=== PATIENT | female | born 1940 | race Asian ===

== ENCOUNTER 2024-04-10 15:43 | Emergency (ER) | payer MEDICARE, OTHER ==
[~2024-04-10] VITALS: Ht 157.5 cm; Wt 48.3 kg
[2024-04-10 15:52] VITALS: O2SAT 96
[2024-04-10 17:11] LABS: Basophils # (auto) 0 10 ^3/uL (0-0.2); Basophils % (auto) 0.3 % (0.0-2.0); Eosinophils # (auto) 0 10 ^3/uL (0-0.8); Eosinophils % (auto) 0.6 % (0.0-7.0); Hematocrit 36.5 % (36.0-46.0); Hemoglobin 12.7 g/dL (12.2-16.2); Lymphocytes # (auto) 1.4 10 ^3/uL (0.4-5.4); Lymphocytes % (auto) 25.4 % (10.0-50.0); Mean Corpuscular Hemoglobin 31.9 pg (28.0-32.0); Mean Corpuscular Hgb Conc. 34.8 g/dL (32.0-36.0); Mean Corpuscular Volume 91.9 fL (80.0-100.0); Monocytes # (auto) 0.4 10 ^3/uL (0-1.3); Monocytes % (auto) 6.9 % (0.0-12.0); Neutrophils # (auto) 3.7 10 ^3/uL (1.6-8.6); Neutrophils % (auto) 66.8 % (37.0-80.0); Platelet Count (auto) 215 10^3/uL (140-450); Red Blood Cells 3.97 10^6/uL (4.0-5.20); Red Cell Distribution Width 13.7 % (11.8-14.3); White Blood Cell 5.5 10^3/uL (4.4-10.8)
[2024-04-10 17:32] LABS: Alanine Aminotransferase 18 U/L (7-40); Alkaline Phosphatase 63 U/L (46-116); Anion Gap 5 (5-15); Aspartate Aminotransferase 13 U/L (13-40); BUN/Creatinine Ratio 21.3 (10.0-20.0); Bilirubin, Total 0.4 mg/dL (0.2-1.0); Blood Urea Nitrogen 19 mg/dL (9-23); Calcium 10.1 mg/dL (8.7-10.4); Carbon Dioxide 27 mmol/L (20-30); Chloride 106 mmol/L (98-107); Glucose 223 mg/dL (74-106); Potassium 4.2 mmol/L (3.5-5.1); Sodium 138 mmol/L (136-145); Total Protein 6.2 g/dL (5.7-8.2)
[2024-04-10] MEDS ORDERED: HYDR-4902 PO (18:58)
[2024-04-10] MEDS: HYDROcodone-ACET 5/325MG TAB PO ONE (19:30)
[2024-04-10 19:44] VITALS: BP 176/62; RESP 16
[2024-04-10 20:06] VITALS: PULSE 65
== END 2024-04-10 20:09 | disposition home or self-care (01) ==
LOC: ER 15:43
DX: S00.83XA Contusion of other part of head, initial encounter (principal); M54.6 Pain in thoracic spine; I10 Essential (primary) hypertension; E11.9 Type 2 diabetes mellitus without complications; E78.5 Hyperlipidemia, unspecified; Z79.899 Other long term (current) drug therapy; W01.0XXA Fall on same level from slipping, tripping and stumbling without subsequent striking against object, initial encounter; Y93.89 Activity, other specified; Y92.098 Other place in other non-institutional residence as the place of occurrence of the external cause; Y99.8 Other external cause status
CPT/HCPCS: 36415; 70450; 71250; 72125; 72128; 72131; 73502; 80053; 84484; 85025; 93005

== ENCOUNTER 2024-06-29 09:06 | Emergency (ER) | payer MEDICARE, MEDICAID ==
[~2024-06-29] VITALS: Ht 157.5 cm; Wt 48.1 kg
[~2024-06-29 09:06] MED LIST: HYDR-4902 PO
[2024-06-29 09:42] VITALS: BP 125/57; PULSE 76; RESP 18; TEMP 98.3; O2SAT 96
--- NOTE | 2024-06-29 09:59 | ED.PDOC ---
History of Present Illness HPI Comments A 83 YEAR OLD FEMALE PRESENTS TO THE ED WITH COMPLAINT OF INSECT BITE AND INTERMITTENT HEADACHES. PATIENT STATES THAT SHE WAS HAS BEEN BY A MOSQUITO ON HER RIGHT INNER THIGH ABOUT 3 DAYS AGO AND NOW HAS MILD REDNESS AND SWELLING TO THE AREA. PATIENT REPORTS SHE ALSO FELL AND HIT HER HEAD ABOUT 2 MONTHS AGO AND HAD A CT SCAN OF HER BRAIN DONE IN THIS ED WHICH WAS NORMAL, BUT IS STILL EXPERIENCING INTERMITTENT HEADACHES SINCE SINCE INJURY OCCURRED AND WOULD LIKE TO BE EVALUATED ONCE AGAIN. PATIENT DENIES VISION CHANGES, SLURRED SPEECH, FAC IAL DROOP, ONE-SIDED WEAKNESS, FEVER, CHILLS, SHORTNESS OF BREATH, CHEST PAIN, ABDOMINAL PAIN, NAUSEA, VOMITING, OR OTHER COMPLAINTS. NO OTHER SYMPTOMS OR MODIFYING FACTORS AT THIS TIME. PATIENT IS ALERT, ORIENTED X 4, AND HAS STEADY GAIT. Chief Complaint: Insect Bite Time Seen by MD: 09:18 Primary Care Provider: RAKESH Reviewed Notes: Nurses Notes, Medications, Allergies Allergies: Coded Allergies: NO KNOWN ALLERGIES (Unverified , 04/10/24) Home Meds Active Scripts Hydrocodone-Acetaminophen (Hydrocodone Bitartrate/AC 5-325 mg) 1 Tab Tab, 1 TAB PO Q6HPRN PRN, #15 TAB Prov:CARMEN ARVIZU [facility] 04/10/24 Information Source: Patient Mode of Arrival: Ambulatory Severity: Moderate Timing: Days, Months Duration: Intermittent Prehospital treatment: None Medication Refill: For: Pain (HEAD ), For: Other (INSECT BITE OF RIGHT INNER THIGH AND INTERMITTENT HEADACHES) Past Medical History PAST MEDICAL HISTORY: DM, High Lipids, HTN Surgical History: Denies all surgeries 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 Family History Family History: Reviewed,noncontributory to illness, No family hx of Cancer, No family hx of DM, No family hx of Heart balwinder, No family hx of HTN, No family hx ofKidney balwinder, No family hx of Liver balwinder, No family hx of Lung balwinder, No family hx of Stroke Social History Smoker: Non-Smoker Alcohol: Denies ETOH Use Drugs: Denies Drug Use Lives In: Home Constitutional: denies: chills, diaphoresis, fatigue, fever, malaise, sweats, weakness, others EENTM: denies: blurred vision, double vision, ear bleeding, ear discharge, ear drainage, ear pain, ear ringing, eye pain, eye redness, hearing loss, mouth pain, mouth swelling, nasal discharge, nose bleeding, nose congestion, nose pain, photophobia, tearing, throat pain, throat swelling, voice changes, others Respiratory: denies: cough, hemoptysis, orthopnea, SOB at rest, shortness of breath, SOB with excertion, stridor, wheezing, others Cardiovascular: denies: chest pain, dizzy spells, diaphoresis, Dyspnea on exertion, edema, irregular heart beat, left arm pain, lightheadedness, palpitations, PND, syncope, others Gastrointestinal: denies: abdomen distended, abdominal pain, blood streaked bowels, constipated, diarrhea, dysphagia, difficulty swallowing, hematemesis, melena, nausea, poor appetite, poor fluid intake, rectal bleeding, rectal pain, vomiting, others Genitourinary: denies: abnormal vagina bleeding, burning, dyspareunia, dysuria, flank pain, frequency, hematuria, incontinence, pain, , vagina discharge, urgency, others Neurological: reports: headache; denies: dizziness, fainting, left sided numbness, left sided weakness, numbness, paresthesia, pre-existing deficit, right sided numbness, right sided weakness, seizure, speech problems, tingling, tremors, weakness, others Musculoskeletal: denies: back pain, gout, joint pain, joint swelling, muscle pain, muscle stiffness, neck pain, others Integumetry: reports: lumps (RIGHT INNER THIGH ), others (INSECT BITE OF RIGHT INNER THIGH); denies: bruises, change in color, change in hair/nails, dryness, laceration, lesions, rash, wounds Allergic/Immunocompromised: denies: Difficulty Healing, Frequent Infections, Hives, Itching, others Hematologic/Lymphatic: denies: anemia, blood clots, easy bleeding, easy bruising, swollen glands, others Endocrine: denies: excessive hunger, excessive sweating, excessive thirst, excessive urination, flushing, intolerance to cold, intolerance to heat, unexplained weight gain, unexplained weight loss, others Psychiatric: denies: anxiety, bipolar disorder, depression, hopeless, panic disorder, schizophrenia, sleepless, suicidal, others All Other Systems: Reviewed and Negative Physical Exam General Appearance: No Apparent Distress, Normal HEENT: Head (NO CONTUSIONS AND HEMATOMAS OF SCALP, NO EVIDENCE OF HEAD INJURY. ), Normal ENT Inspection, PERRL/EOMI, Pharynx Normal, TMs Normal Neck: Full Range of Motion, Non-Tender, Normal, Normal Inspection Respiratory: Chest Non-Tender, Lungs Clear, No Accessory Muscle Use, No Respiratory Distress, Normal Breath Sounds Cardiovascular: No Edema, No JVD, No Murmur, No Gallop, Normal Peripheral Pulses, Regular Rate/Rhythm Breast Exam: Deferred Gastrointestinal: No Organomegaly, Non Tender, No Pulsatile Mass, Normal Bowel Sounds, Soft Genitalia: Deferred Pelvic: Deferred Rectal: Deferred Extremities: No calf tenderness, Normal capillary refill, Normal inspection, Normal range of motion, Non-tender, No pedal edema Musculoskeletal : Apperance: Normal Neurologic: Alert, bander operator II-XII nml as Tested, No Motor Deficits, Normal Affect, Normal Mood, No Sensory Deficits Cerebellar Function: Normal Reflexes: Normal Skin: Dry, Warm, Other (A SMALL RED BUMP ON RIGHT INNER THIGH, NO OPEN WOUND AND DRAINAGE, +BITE MAGNUS. ) Peripheral Pulses: 2+ carotid (R), 2+ carotid (L), 2+ dorsalis pedis (R), 2+ dorsalis pedis (L) Lymphatic: No Adenopathy Was a procedure done? Was a procedure done?: No Differential Dx Considerations may include: INSECT BITE WOUND, MOSQUITO BITE, SOFT TISSUE INFECTION, ALLERGIC REACTION TO INSECT BITE, BRAIN MASS, BRAIN BLEED, CHRONIC HEADACHES, TENSION HEADACHE X-Ray, Labs, Meds, VS Vital Signs Date Time Temp Pulse Resp B/P (MAP) Pulse Ox O2 Delivery O2 Flow Rate FiO2 06/29/24 09:42 76 18 96 Room Air 06/29/24 09:42 98.3 76 18 125/57 (79) 96 98.3 06/29/24 09:17 98.3 76 18 125/57 (79) 96 EXAM: CT HEAD WITHOUT CONTRAST INDICATION: HEADACHE X 2 MONTHS AFTER FALL. TECHNIQUE: CT of the head without intravenous contrast. Radiation Dose : 1. Head: CT Dose: CTDI volume is 48.66 mGy. Dose-length product is 780.23 mGy*cm The dose indicators for CT are the volume Computed Tomography (CT) Dose Index (CTDIvol) and the Dose Length Product (DLP), and are measured in units of mGy and mGy-cm, respectively. These indicators are not patient dose, but values generated from the CT scanner acquisition factors. The report includes radiation exposure data for exposures received during this examination. COMPARISON: CT LS SPINE WO CONTRAST on DOS: 04/10/24, CT CHEST WITHOUT CONTRAST on DOS: 04/10/24, CT CERVICAL WITHOUT CONTRAST on DOS: 04/10/24 FINDINGS: There is no evidence of acute intracranial hemorrhage, extra-axial collection, mass effect, midline shift, herniation or hydrocephalus. The ventricles, sulci and cisterns are age appropriate. The [place]ar[place]-white differentiation is intact. Patchy periventricular and subcortical white matter hypoattenuation is nonspecific but may be related to small vessel ischemic disease. The visualized paranasal sinuses and mastoid air cells are clear. The surrounding soft tissues and osseous structures are unremarkable. IMPRESSION: No acute intracranial abnormality. Radiation optimization: All CT scans at this facility use at least one of these dose optimization techniques: automated exposure control mA and/or kV adjustment per patient size (includes targeted exams where dose is matched to clinical indication) or iterative reconstruction. ATED BY: LUIS M BRUCE MD DICTATED DATE/TIME: 06/29/24 1025 SIGNED BY: LUIS M BRUCE MD SIGNED DATE/TIME: 06/29/24 1025 CC: Images Reviewed?: Images reviewed and evaluated by me Time of 1ST Reevaluation: 11:00 Reevaluation 1ST: Improved Patient Education/Counseling: Diagnosis, Treatment, Need For Follow Up Family Education/Counseling: Diagnosis, Treatment, Need For Follow Up Medical Screening: No EMC Exist At This Time Departure 1 Departure Time of Disposition: 11:00 Impression: Primary Impression: Acute headache Qualified Codes: R51.9 - Headache, unspecified Additional Impressions: Status post fall Insect bite wound Disposition: HOME / SELF CARE / HOMELESS Condition: Stable Additional Instructions: FOLLOW-UP WITH PCP IN 1 TO 2 DAYS. TAKE MEDICATIONS PRESCRIBED. RETURN TO ED FOR ANY NEW OR WORSENING SYMPTOMS. e-Prescriptions Acetaminophen (Tylenol 8 Hour Arthritis) 650 Mg Tab 650 MG PO TID, #30 TAB Prov: HARSH GRACE 06/29/24 Cephalexin Monohydrate (Cephalexin) 500 Mg Cap 1 CAP PO TID, #30 CAP Prov: HARSH GRACE 06/29/24 Discharged With: Self, Relative Critical Care Note Critical Care Time?: No Stability Stability form required: No I personally scribed for HARSH GRACE ([email or web address]) on 06/29/24 at 09:59. Electronically submitted by Fly Erwin ([email or web address]). I personally scribed for HARSH GRACE ([email or web address]) on 06/29/24 at 10:35. Electronically submitted by Fly Erwin ([email or web address]). HARSH GRACE Jun 29, 2024 09:59
--- NOTE | 2024-06-29 10:29 | DVH ---
EXAM: CT HEAD WITHOUT CONTRAST INDICATION: HEADACHE X 2 MONTHS AFTER FALL. TECHNIQUE: CT of the head without intravenous contrast. Radiation Dose : 1. Head: CT Dose: CTDI volume is 48.66 mGy. Dose-length product is 780.23 mGy*cm The dose indicators for CT are the volume Computed Tomography (CT) Dose Index (CTDIvol) and the Dose Length Product (DLP), and are measured in units of mGy and mGy-cm, respectively. These indicators are not patient dose, but values generated from the CT scanner acquisition factors. The report includes radiation exposure data for exposures received during this examination. COMPARISON: CT LS SPINE WO CONTRAST on DOS: 04/10/24, CT CHEST WITHOUT CONTRAST on DOS: 04/10/24, CT CE RVICAL WITHOUT CONTRAST on DOS: 04/10/24 FINDINGS: There is no evidence of acute intracranial hemorrhage, extra-axial collection, mass effect, midline s hift, herniation or hydrocephalus. The ventricles, sulci and cisterns are age appropriate. The [place]-white differentiation is intact. Patchy periventricular and subcortical white matter hypoattenuation is nonspecific but may be related to small vessel ischemic disease. The visualized paranasal sinuses and mastoid air cells are clear. The surrounding soft tissues and osseous structures are unremarkable. IMPRESSION: No acute intracranial abnormality. Radiation optimization: All CT scans at this facility use at least one of these dose optimization nisha hniques: automated exposure control mA and/or kV adjustment per patient size (includes targeted exam s where dose is matched to clinical indication) or iterative reconstruction.
[2024-06-29] MEDS ORDERED: CEPH500C PO (10:45)
[2024-06-29] MEDS ORDERED: ACET-1080 PO (10:45)
== END 2024-06-29 10:55 | disposition home or self-care (01) ==
LOC: ER 09:06
DX: S70.361A Insect bite (nonvenomous), right thigh, initial encounter (principal); R51.9 Headache, unspecified; I10 Essential (primary) hypertension; E11.9 Type 2 diabetes mellitus without complications; E78.5 Hyperlipidemia, unspecified; Z79.899 Other long term (current) drug therapy; W57.XXXA Bitten or stung by nonvenomous insect and other nonvenomous arthropods, initial encounter; Y93.89 Activity, other specified; Y92.89 Other specified places as the place of occurrence of the external cause; Y99.8 Other external cause status
CPT/HCPCS: 70450

== ENCOUNTER 2025-02-12 10:33 | Inpatient (IN) | payer MEDICARE, OTHER ==
[~2025-02-12] VITALS: Ht 157.5 cm; Wt 44.8 kg
[~2025-02-12 10:33] MED LIST changes: +ACET-1080 PO; +CEPH500C PO
--- NOTE | 2025-02-12 12:02 | ED.PDOC ---
GI ASSESSMENT HPI Comments Patient is a 84-year-old female with a past medical history of type 2 diabetes mellitus, hypothyroidism, GERD, colonic polyps, dementia was brought in to the ED by his son for the chief complaint of abdominal pain. The reported the patient is been having left lower quadrant abdominal pain for the last 2 weeks this has intermittent, 6 to 7/10 on intensity when it occurs, has a associated diarrhea for the last 5 days, noticed blood in the stool today in the morning following which they came to the hospital for further evaluation. They also report that her stools has been becoming thinner and has a associated weight loss about 7-10 lb, weakness and malaise which they attribute to decreased appetite. Patient denied any fever, chills, constipation, no worsening of pain with the food, a little relief of pain with [id number] pain medications. The report of noticing blood in the stool about 2 months ago and patient is a scheduled for an endoscopy with a her counsel who was down the [facility] [place] on March 12. Do report to each ago patient has a colonoscopy and 7 polyps were removed and she is scheduled for another colonoscopy in an year. Chief Complaint: Abdominal Pain Time Seen by MD: 11:15 Primary Care Provider: RAKESH Reviewed Notes: Nurses Notes, Medications, Allergies Allergies: Coded Allergies: NO KNOWN ALLERGIES (Unverified , 04/10/24) Home Meds Active Scripts Acetaminophen (Tylenol 8 Hour Arthritis) 650 Mg Tab, 650 MG PO TID, #30 TAB Prov:HARSH GRACE 06/29/24 Cephalexin Monohydrate (Cephalexin) 500 Mg Cap, 1 CAP PO TID, #30 CAP Prov:HARSH GRACE 06/29/24 Hydrocodone-Acetaminophen (Hydrocodone Bitartrate/AC 5-325 mg) 1 Tab Tab, 1 TAB PO Q6HPRN PRN, #15 TAB Prov:CARMEN ARVIZU 04/10/24 Information Source: Patient, Relative (Child) Mode of Arrival: Ambulatory Brought in by: Self Timing: Days Duration: Intermittent Quality: Cramping, Sharp Vomitus: None Stool: Blood Streaked Severity: Mild, Moderate Pain Location: LLQ Modifying Factors: Nothing Associated sign and symptoms: Diarrhea, Blood in Stool Past Medical History PAST MEDICAL HISTORY: Dementia, DM, High Lipids, HTN, Thyroid (Hypothyroidism) Surgical History: Denies all surgeries 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 BARBER OR BEAUTY SHOP MANAGER History Family History Family History: Reviewed,noncontributory to illness, No family hx of Cancer, No family hx of DM, No family hx of Heart balwinder, No family hx of HTN, No family hx ofKidney balwinder, No family hx of Liver balwinder, No family hx of Lung balwinder, No family hx of Stroke Social History Smoker: Non-Smoker Alcohol: Denies ETOH Use Drugs: Denies Drug Use Lives In: Home Constitutional: reports: fatigue, malaise, weakness EENTM: denies: blurred vision, double vision, ear bleeding, ear discharge, ear drainage, ear pain, ear ringing, eye pain, eye redness, hearing loss, mouth see n, mouth swelling, nasal discharge, nose bleeding, nose congestion, nose pain, photophobia, tearing, throat pain, throat swelling, voice changes, others Respiratory: denies: cough, hemoptysis, orthopnea, SOB at rest, shortness of breath, SOB with excertion, stridor, wheezing, others Cardiovascular: denies: chest pain, dizzy spells, diaphoresis, Dyspnea on exertion, edema, irregular heart beat, left arm pain, lightheadedness, palpitations, PND, syncope, others Gastrointestinal: reports: abdominal pain (Left lower quadrant), blood streaked bowels, diarrhea, poor appetite Genitourinary: denies: abnormal vagina bleeding, burning, dyspareunia, dysuria, flank pain, frequency, hematuria, incontinence, pain, , vagina discharge, urgency, others Neurological: denies: dizziness, fainting, headache, left sided numbness, left sided weakness, numbness, paresthesia, pre-existing deficit, right sided numbness, right sided weakness, seizure, speech problems, tingling, tremors, weakness, others Musculoskeletal: denies: back pain, gout, joint pain, joint swelling, muscle pain, muscle stiffness, neck pain, others Integumetry: denies: bruises, change in color, change in hair/nails, dryness, laceration, lesions, lumps, rash, wounds, others Allergic/Immunocompromised: denies: Difficulty Healing, Frequent Infections, Hives, Itching, others Hematologic/Lymphatic: denies: anemia, blood clots, easy bleeding, easy bruising, swollen glands, others Endocrine: denies: excessive hunger, excessive sweating, excessive thirst, excessive urination, flushing, intolerance to cold, intolerance to heat, unexplained weight gain, unexplained weight loss, others Psychiatric: denies: anxiety, bipolar disorder, depression, hopeless, panic disorder, schizophrenia, sleepless, suicidal, others Physical Exam General Appearance: Mild Distress, Thin HEENT: Normal ENT Inspection, Pharynx Normal, TMs Normal Neck: Full Range of Motion, Non-Tender, Normal, Normal Inspection Respiratory: Chest Non-Tender, Lungs Clear, No Accessory Muscle Use, No Respiratory Distress, Normal Breath Sounds Cardiovascular: No Edema, No JVD, No Murmur, No Gallop, Normal Peripheral Pulses, Regular Rate/Rhythm Breast Exam: Deferred Gastrointestinal: LLQ (Pain, mild tenderness), No Organomegaly, No Pulsatile Mass, Normal Bowel Sounds Genitalia: Deferred Pelvic: Deferred Rectal: Blood streaked stool Extremities: No calf tenderness, Normal capillary refill, Normal inspection, Normal range of motion, Non-tender, No pedal edema Neurologic: Alert, leather staker II-XII nml as Tested, Dizziness, No Motor Deficits, Normal Affect, Normal Mood, No Sensory Deficits Cerebellar Function: Normal Reflexes: Normal Skin: Dry, Normal Color, Warm Peripheral Pulses: 2+ carotid (R), 2+ carotid (L), 2+ femoral (R), 2+ femoral (L), 2+ dorsalis pedis (R), 2+ dorsalis pedis (L), 2+ Radial (R), 2+ Radial (L) Lymphatic: No Adenopathy Was a procedure done? Was a procedure done?: No GI differential Dx Differential Diagnosis: Gastritis/PUD, Gastroenteritis Other Differential Diagnosis Acute diverticulitis, colon mass, proctocolitis, gastroenteritis X-Ray, Labs, Meds, VS Vital Signs Date Time Temp Pulse Resp B/P (MAP) Pulse Ox O2 Delivery O2 Flow Rate FiO2 02/12/25 15:00 213/79 02/12/25 13:23 97.4 62 18 198/68 (111) 99 97.4 02/12/25 13:23 62 18 99 Room Air 02/12/25 11:35 99.0 68 16 168/80 (109) 98 99.0 Lab Test 02/12/25 12:05 02/12/25 11:41 02/12/25 11:35 Range/Units White Blood Count 5.1 4.4-10.8 10^3/uL Red Blood Count 4.29 4.0-5.20 10^6/uL Hemoglobin 13.5 12.2-16.2 g/dL Hematocrit 40.4 36.0-46.0 % Mean Corpuscular Volume 94.1 80.0-100.0 fL Mean Corpuscular Hemoglobin 31.4 28.0-32.0 pg Mean Corpuscular Hemoglobin Concent 33.4 32.0-36.0 g/dL Red Cell Distribution Width 13.2 11.8-14.3 % Platelet Count 227 140-450 10^3/uL Mean Platelet Volume 7.6 6.9-10.8 fL Neutrophils (%) (Auto) 55.3 37.0-80.0 % Lymphocytes (%) (Auto) 37.6 10.0-50.0 % Monocytes (%) (Auto) 5.9 0.0-12.0 % Eosinophils (%) (Auto) 0.5 0.0-7.0 % Basophils (%) (Auto) 0.7 0.0-2.0 % Neutrophils # (Auto) 2.8 1.6-8.6 10 ^3/uL Lymphocytes # (Auto) 1.9 0.4-5.4 10 ^3/uL Monocytes # (Auto) 0.3 0-1.3 10 ^3/uL Eosinophils # (Auto) 0 0-0.8 10 ^3/uL Basophils # (Auto) 0 0-0.2 10 ^3/uL Nucleated Red Blood Cells 0.0 % Prothrombin Time 10.3 9.3-11.8 sec Prothrombin Time INR 0.97 0.9-1.15 Activated Partial Thromboplast Time 27.6 24.5-34.5 SEC Sodium Level 141 136-145 mmol/L Potassium Level 3.7 3.5-5.1 mmol/L Chloride Level 105 98-107 mmol/L Carbon Dioxide Level 27 20-31 mmol/L Anion Gap 9 5-15 Blood Urea Nitrogen 11 9-23 mg/dL Creatinine 0.80 0.550-1.02 mg/dL Glomerular Filtration Rate Calc 72 >90 mL/min BUN/Creatinine Ratio 13.8 10.0-20.0 Serum Glucose 113 H 74-106 mg/dL Calcium Level 10.0 8.7-10.4 mg/dL Stool Occult Blood Negative Negative Stool Occult Blood Sample #3 Negative Urine Color Light-yellow Yellow Urine Clarity Clear Clear Urine pH 5.0 5.0-9.0 Urine Specific Orange 1.012 1.001-1.035 Urine Protein Negative Negative Urine Ketones Negative Negative Urine Blood Negative Negative /uL Urine Nitrite Negative Negative Urine Bilirubin Negative Negative Urine Urobilinogen Normal Negative mg/dL Urine Leukocyte Esterase Negative Negative /uL Urine RBC <1 0 - 4 /hpf Urine Microscopic WBC < 1 0-5 /HPF Urine Squamous Epithelial Cells None seen <5 /hpf Urine Bacteria None seen None Seen /hpf Urine Glucose 4+ H Normal mg/dL Current Medications Medications (Trade) Dose Ordered Sig/Myles Route Start Time Stop Time Status Last Admin Hydralazine HCl (Apresoline Injection) 10 mg ONCE ONCE IV 02/12/25 14:15 02/12/25 14:46 DC 02/12/25 15:00 Patient 84-year-old female came in with a chief complaint of left lower quadrant pain for the last 2 weeks associated with the diarrhea for the last 5 days and noticed blood in the stool in the morning today following which came to the ED for further evaluation.. Has a history of colonic polyps removed 2 years ago. Lab investigations including CBC, BMP were grossly within normal limits. CT abdomen pelvis with IV contrast was done which showed rectal wall thickening. Stool occult blood was negative. Patient is being admitted as she has significant pain in the lower abdomen and needs further inpatient care. Time of 1ST Reevaluation: 13:06 Reevaluation 1ST: Unchanged Time of 2ND Reevaluation: 14:47 Reevaluation 2ND: Worsened Patient Education/Counseling: Diagnosis, Treatment Family Education/Counseling: Diagnosis, Treatment SEPSIS Sepsis Screen Physician Orders Ct Ab Pel With Iv Con Only (02/12/25 11:58) Ceftriaxone 1gm/50ml D5w (Rocephin) (02/12/25 15:30) Metronidazole 500mg/100ml (Flagyl 500mg/ (02/12/25 15:30) NS (02/12/25 15:30) Morphine Sulfate Injection (02/12/25 15:30) Vital Signs Date Time Temp Pulse Resp B/P (MAP) Pulse Ox O2 Delivery O2 Flow Rate FiO2 02/12/25 15:00 213/79 02/12/25 13:23 97.4 62 18 198/68 (111) 99 97.4 02/12/25 13:23 62 18 99 Room Air 02/12/25 11:35 99.0 68 16 168/80 (109) 98 99.0 Laboratory Tests Test 02/12/25 12:05 White Blood Count 5.1 10^3/uL (4.4-10.8) Medications Medications Dose Ordered Sig/Myles Route Start Time Stop Time Status Last Admin Dose Admin Hydralazine HCl 10 mg ONCE ONCE IV 02/12/25 14:15 02/12/25 14:46 DC 02/12/25 15:00 Departure 1 Departure Time of Disposition: 15:29 Impression: Primary Impression: Proctocolitis Additional Impressions: Gastroenteritis Colitis History of colon polyps Disposition: ADMITTED INPATIENT Condition: Fair Critical Care Note Critical Care Time?: No Stability Stability form required: No Heart Score Heart Score: Heart Score Response (Comments) Value History N/A 0 EKG N/A 0 Age N/A 0 Risk Factors N/A 0 Troponin N/A 0 Total 0 [place] RESIDENT Feb 12, 2025 12:02
[2025-02-12 12:20] LABS: Hematocrit 40.4 % (36.0-46.0); Hemoglobin 13.5 g/dL (12.2-16.2); Mean Corpuscular Hemoglobin 31.4 pg (28.0-32.0); Mean Corpuscular Volume 94.1 fL (80.0-100.0); Nucleated Red Blood Cells % 0.0 %
[2025-02-12 12:29] LABS: Chloride 105 mmol/L (98-107); Potassium 3.7 mmol/L (3.5-5.1); Sodium 141 mmol/L (136-145)
[2025-02-12 12:30] LABS: Anion Gap 9 (5-15); Carbon Dioxide 27 mmol/L (20-31)
[2025-02-12 12:31] LABS: Calcium 10.0 mg/dL (8.7-10.4)
[2025-02-12 12:34] LABS: INR 0.97 (0.9-1.15); Partial Thromboplastin Time 27.6 SEC (24.5-34.5); Prothrombin Time 10.3 sec (9.3-11.8)
[2025-02-12 12:36] LABS: BUN/Creatinine Ratio 13.8 (10.0-20.0); Blood Urea Nitrogen 11 mg/dL (9-23)
[2025-02-12 12:37] LABS: Glucose 113 mg/dL (74-106)
[2025-02-12] MEDS: IOHEXOL 300 MG/ML 100ML BOTTLE IJ ONE (13:05)
[2025-02-12 14:03] LABS: Urine Protein, UAD Negative (Negative)
--- NOTE | 2025-02-12 14:04 | DVH ---
Indication: LLQ pain, blood in stool, h/o colon polyps Technique: CT axial images of the abdomen and pelvis are obtained with intravenous contrast. Coronal and sagittal reformats were obtained. Radiation Dose Information: CTDI volume is 5.63 mGy. Dose-length product is 298.68 mGy*cm Comparison: None FINDINGS: The lung bases demonstrate no pleural effusion. Adrenal glands, spleen, pancreas unremarkable. Cholecystectomy. No enhancing hepatic lesion. No hydronephrosis. Stomach partially distended. Small bowel loops are normal in caliber. Rectal wall thickening. Moderate volume stool in the colon. No secondary signs for appendicitis. Abdominal aortic atherosclerotic disease and tortuosity. Bladder partially distended. No free pelvic fluid. No inguinal lymphadenopathy. [id number] sacral iliac degenerative joint disease. Moderate to advanced thoracolumbar degener ative disc disease IMPRESSION: Rectal wall thickening which can be seen with proctocolitis. Recommend GI consultation to exclude un derlying rectal mass/ neoplasm. Other findings as described.
[2025-02-12] MEDS: hydrALAZINE HCL 20 MG/ML VL IV ONE (15:00)
[2025-02-12] MEDS: cefTRIAXone 1GM/50ML D5W 50 ML IV ONE (15:52)
[2025-02-12] MEDS: MORPHINE SULFATE INJ 2 MG/ml SYRG IV ONE (15:53)
[2025-02-12] MEDS: SODIUM CHLORIDE 0.9% 250 ML IV ONE (15:53)
[2025-02-12 16:16] VITALS: PULSE 78; RESP 16; O2SAT 99
[2025-02-12] MEDS: ONDANSETRON HCL 4 MG/2 ML VIAL IV ONE (17:37)
[2025-02-12] MEDS ORDERED: ALBUTEROL SULF 2.5 MG/0.5ML(0.5%) NEB SOLN NEB PRN (19:45)
[2025-02-12] MEDS ORDERED: ONDANSETRON HCL 4 MG/2 ML VIAL IV PRN (19:45)
[2025-02-12] MEDS ORDERED: DEXTROSE (50%) 50ML SYRG IV PRN (19:45)
[2025-02-12 19:56] VITALS: BP 149/91; PULSE 95; RESP 16; TEMP 98.5; O2SAT 99
[2025-02-12 21:58] VITALS: O2SAT 95
[2025-02-12] MEDS: InsuLIN REG 1unit/0.01ml Soln (100units/ml) SC SCH (22:00)
[2025-02-12] MEDS: ACCU-CHEK COMFORT CURVE STRIP VI SCH (22:00)
[2025-02-12] MEDS ORDERED: METF-370 PO (22:05)
[2025-02-12] MEDS ORDERED: ZOLP5TAB5 PO (22:05)
[2025-02-12] MEDS ORDERED: MEMA1TAB5 PO (22:05)
[2025-02-12] MEDS ORDERED: ALEN35TA18 PO (22:05)
[2025-02-12] MEDS ORDERED: CICL8SOL21 TOP (22:05)
[2025-02-12] MEDS ORDERED: EMPA1TAB3 PO (22:05)
[2025-02-12] MEDS ORDERED: ATOR10TA PO (22:05)
[2025-02-12] MEDS: ATORVASTATIN 20 MG TAB PO SCH (22:12)
[2025-02-12] MEDS: MEMANTINE HCL 5 MG TAB PO SCH (22:27)
[2025-02-12] MEDS: ZOLPIDEM TARTRATE 5 MG TAB PO ONE (23:00)
[2025-02-13] VITALS (10 sets, daily range): BP systolic 106–173; BP diastolic 49–82; PULSE 52–61; RESP 16–18; TEMP 97.2–98.1; O2SAT 94–97
--- NOTE | 2025-02-13 03:49 | DVHHP2 ---
History of Present Illness Reason for Visit: Abdominal pain History of Present Illness 84-year-old female presents for evaluation of abdominal pain. Patient presents with a two week history of intermittent left lower quadrant abdominal pain. Patient reports that today she noted some blood in her stool so she presented for further evaluation. She also reports unintentional weight loss over the past couple of months. Patient is scheduled to see a carding machine feeder on the of this month for an endoscopy. Past Medical History Diabetes mellitus, dyslipidemia, hypertension, thyroid Past Surgical History None Family History Noncontributory Smoke: No ALCOHOL: none Drugs: None Lives: with Family Review of Systems Review of Systems Review of systems are currently negative otherwise addressed in HPI. Allergies: Coded Allergies: NO KNOWN ALLERGIES (Unverified , 04/10/24) Medications Current Medications Medications Dose Ordered Sig/Myles Route Start Time Stop Time Status Last Admin Dose Admin Empaglifozin 10 mg DAILY PO 02/13/25 10:00 Atorvastatin Calcium 10 mg HS PO 02/12/25 22:00 02/12/25 22:12 10 MG Albuterol 2.5 mg Q6HPRN PRN NEB 02/12/25 19:45 Amlodipine Besylate 2.5 mg DAILY PO 02/13/25 10:00 Hydrochlorothiazide 12.5 mg DAILY PO 02/13/25 10:00 Levothyroxine Sodium 88 mcg QAM@0600 PO 02/13/25 06:00 Memantine 10 mg Q12HR PO 02/12/25 22:00 02/12/25 22:27 10 MG Metronidazole 100 ml @ 100 mls/hr Q8HR IV 02/12/25 22:00 02/12/25 22:11 100 MLS/HR Diagnostic Test (Pha) 1 strip ACHS 02/12/25 22:00 02/12/25 22:00 1 STRIP Insulin Human Regular ACHS SC 02/12/25 22:00 Dextrose 50 ml UD PRN IV 02/12/25 19:45 Acetaminophen/ Hydrocodone Bitart 1 tab Q4HP PRN PO 02/12/25 19:45 Ondansetron HCl 4 mg Q4HP PRN IV 02/12/25 19:45 Acetaminophen 650 mg Q6HP PRN PO 02/12/25 19:45 Pantoprazole Sodium 40 mg DAILY IV 02/13/25 10:00 Exam Vital Signs Vital Signs Date Time Temp Pulse Resp B/P (MAP) Pulse Ox O2 Delivery O2 Flow Rate FiO2 02/13/25 01:00 97.2 61 18 117/64 (81) 94 97.2 02/12/25 21:58 Room Air 0.0 02/12/25 21:58 21 Exam Gen: 84-year-old female in no apparent distress. Skin: Warm, dry, normal color and texture, no rash. HEENT: Normocephalic atraumatic, mucous membranes moist and pink. Neck: Cervical and supraclavicular nodes normal without enlargement, trachea is midline, thyroid gland is normal without masses. Pulmonary: Clear to auscultation and percussion bilaterally. Cardiac: Regular rate and rhythm. No murmur Abdomen: Soft, nontender, nondistended, bowel sounds present all 4 quadrants, no guarding, no rigidity, no organomegaly. Extremities: No cyanosis, clubbing, no edema Neuro: Cranial nerves II through XII grossly intact, normal affect and speech, no focal motor deficits. Labs/Xrays ORDERING PHYSICIAN: BONY [place]OCK RESIDENT PROCEDURE(s): ABPLIV - CT AB PEL WITH IV CON ONLY REASON: LLQ pain, blood in stool, h/o colon polyps ORDER NUMBER(s): [id number], ACCESSION NUMBER(s): [id number] Indication: LLQ pain, blood in stool, h/o colon polyps Technique: CT axial images of the abdomen and pelvis are obtained with intravenous contrast. Coronal and sagittal reformats were obtained. Radiation Dose Information: CTDI volume is 5.63 mGy. Dose-length product is 298.68 mGy*cm Comparison: None FINDINGS: The lung bases demonstrate no pleural effusion. Adrenal glands, spleen, pancreas unremarkable. Cholecystectomy. No enhancing hepatic lesion. No hydronephrosis. Stomach partially distended. Small bowel loops are normal in caliber. Rectal wall thickening. Moderate volume stool in the colon. No secondary signs for appendicitis. Abdominal aortic atherosclerotic disease and tortuosity. Bladder partially distended. No free pelvic fluid. No inguinal lymphadenopathy. [id number] sacral iliac degenerative joint disease. Moderate to advanced thoracolumbar degenerative disc disease IMPRESSION: Rectal wall thickening which can be seen with proctocolitis. Recommend GI consultation to exclude underlying rectal mass/ neoplasm. Other findings as described. ATED BY: DESTIN ROSAS MD DICTATED DATE/TIME: 02/12/251556 SIGNED BY: DESTIN ROSAS MD SIGNED DATE/TIME: 02/12/251556 CC: Labs Test 02/12/25 22:36 02/12/25 12:05 02/12/25 11:41 02/12/25 11:35 Range/Units POC Glucose 113 H 70-106 mg/dl White Blood Count 5.1 4.4-10.8 10^3/uL Red Blood Count 4.29 4.0-5.20 10^6/uL Hemoglobin 13.5 12.2-16.2 g/dL Hematocrit 40.4 36.0-46.0 % Mean Corpuscular Volume 94.1 80.0-100.0 fL Mean Corpuscular Hemoglobin 31.4 28.0-32.0 pg Mean Corpuscular Hemoglobin Concent 33.4 32.0-36.0 g/dL Red Cell Distribution Width 13.2 11.8-14.3 % Platelet Count 227 140-450 10^3/uL Mean Platelet Volume 7.6 6.9-10.8 fL Neutrophils (%) (Auto) 55.3 37.0-80.0 % Lymphocytes (%) (Auto) 37.6 10.0-50.0 % Monocytes (%) (Auto) 5.9 0.0-12.0 % Eosinophils (%) (Auto) 0.5 0.0-7.0 % Basophils (%) (Auto) 0.7 0.0-2.0 % Neutrophils # (Auto) 2.8 1.6-8.6 10 ^3/uL Lymphocytes # (Auto) 1.9 0.4-5.4 10 ^3/uL Monocytes # (Auto) 0.3 0-1.3 10 ^3/uL Eosinophils # (Auto) 0 0-0.8 10 ^3/uL Basophils # (Auto) 0 0-0.2 10 ^3/uL Nucleated Red Blood Cells 0.0 % Prothrombin Time 10.3 9.3-11.8 sec Prothrombin Time INR 0.97 0.9-1.15 Activated Partial Thromboplast Time 27.6 24.5-34.5 SEC Sodium Level 141 136-145 mmol/L Potassium Level 3.7 3.5-5.1 mmol/L Chloride Level 105 98-107 mmol/L Carbon Dioxide Level 27 20-31 mmol/L Anion Gap 9 5-15 Blood Urea Nitrogen 11 9-23 mg/dL Creatinine 0.80 0.550-1.02 mg/dL Glomerular Filtration Rate Calc 72 >90 mL/min BUN/Creatinine Ratio 13.8 10.0-20.0 Serum Glucose 113 H 74-106 mg/dL Calcium Level 10.0 8.7-10.4 mg/dL Stool Occult Blood Negative Negative Stool Occult Blood Sample #3 Negative Urine Color Light-yellow Yellow Urine Clarity Clear Clear Urine pH 5.0 5.0-9.0 Urine Specific [place] 1.012 1.001-1.035 Urine Protein Negative Negative Urine Ketones Negative Negative Urine Blood Negative Negative /uL Urine Nitrite Negative Negative Urine Bilirubin Negative Negative Urine Urobilinogen Normal Negative mg/dL Urine Leukocyte Esterase Negative Negative /uL Urine RBC <1 0 - 4 /hpf Urine Microscopic WBC < 1 0-5 /HPF Urine Squamous Epithelial Cells None seen <5 /hpf Urine Bacteria None seen None Seen /hpf Urine Glucose 4+ H Normal mg/dL Assessment/Plan Assessment/Plan Assessment Acute abdominal pain Proctocolitis ? Rectal neoplasm Diabetes mellitus Plan Ad[place] the [place] [facility] [place] Clear liquid diet GI consult Resume home medications Continue treatment per orders. Plan discussed with: Patient My Orders Orders - CORNELIUS ZAMORA AGACNP Procedure Category Date Status Time Stool Bacterial FIORELLA 02/12/25 Logged Culture 19:38 Empagliflozin PHA 02/13/25 In Process (Jardiance) 10:00 Atorvastatin (Lipitor) PHA 02/12/25 In Process 22:00 Albuterol Medneb PHA 02/12/25 In Process (Ventolin Medneb) 19:45 Amlodipine Tablet PHA 02/13/25 In Process (Norvasc Tablet) 10:00 Hydrochlorothiazide PHA 02/13/25 In Process Tablet (Hydrochlorot 10:00 Levothyroxine Tablet PHA 02/13/25 In Process (Synthroid Tablet) 06:00 Memantine Tablet PHA 02/12/25 In Process (Namenda Tablet) 22:00 Metronidazole PHA 02/12/25 In Process 500mg/100ml (Flagyl 22:00 * [facility] Director Of Provider Relations CONS 02/12/25 Transmitted 19:38 Basic Metabolic Panel LAB 02/13/25 Logged 04:00 Glucose Blood PHA 02/12/25 In Process (Accu-Chek Comfort 22:00 Insulin R (Human) PHA 02/12/25 In Process (Insulin R) 22:00 Dextrose 50% Syringe PHA 02/12/25 In Process 19:45 Admit ADMIT 02/12/25 Transmitted 19:38 Hydrocodone-Acet PHA 02/12/25 In Process 5/325mg Tab ([place] 19:45 Ondansetron Hcl PHA 02/12/25 In Process (Zofran) 19:45 Complete Blood Count LAB 02/13/25 Logged 04:00 Condition: Stable ORLIN 02/12/25 In Process 19:38 Acetaminophen Tablet PHA 02/12/25 In Process (Tylenol Tablet) 19:45 Clear Liq Diet DIET 02/13/25 Transmitted Breakfast Bedrest With Bathroom ORLIN 02/12/25 In Process Privileg 19:38 Pantoprazole PHA 02/13/25 In Process (Protonix) 10:00 * Dietary Consult CONS 02/12/25 Transmitted 22:41 Date of Service: Feb 12, 2025 Billing Provider: CORNELIUS ZAMORA Common Visit Codes: [id number] INP/OBS CARE (MOD) CORNELIUS ZAMORA Feb 13, 2025 03:49
[2025-02-13] MEDS: LEVOTHYROXINE SODIUM 88 MCG TAB PO SCH (06:05)
[2025-02-13 07:08] LABS: Potassium 3.5 mmol/L (3.5-5.1); Sodium 142 mmol/L (136-145)
[2025-02-13 07:09] LABS: Anion Gap 10 (5-15); Carbon Dioxide 23 mmol/L (20-31)
[2025-02-13 07:10] LABS: Hematocrit 37.6 % (36.0-46.0); Hemoglobin 12.6 g/dL (12.2-16.2); Mean Corpuscular Hemoglobin 31.7 pg (28.0-32.0); Mean Corpuscular Volume 94.4 fL (80.0-100.0); Nucleated Red Blood Cells % 0.1 %
[2025-02-13 07:14] LABS: Glucose 92 mg/dL (74-106)
[2025-02-13 07:15] LABS: BUN/Creatinine Ratio 16.9 (10.0-20.0); Blood Urea Nitrogen 11 mg/dL (9-23)
[2025-02-13 07:19] LABS: Calcium 8.3 mg/dL (8.7-10.4); Chloride 109 mmol/L (98-107)
[2025-02-13] MEDS: hydroCHLOROthiazide 25 MG TAB PO SCH (09:58)
[2025-02-13] MEDS: EMPAGLIFLOZIN 10 MG TAB PO SCH (09:58)
[2025-02-13] MEDS: PANTOPRAZOLE 40 MG/10 ML VIAL INJ IV SCH (10:01)
--- NOTE | 2025-02-13 10:12 | DVHPN2 ---
Subjective Patient states that her symptoms have improved. Reviewed: Care Plan, H&P, Labs, Medications Changes from previous H/P or p: No Changes General: Per HPI Objective Vitals Vital Signs Date Time Temp Pulse Resp B/P (MAP) Pulse Ox O2 Delivery O2 Flow Rate FiO2 02/13/25 09:59 106/49 02/13/25 08:37 98.1 52 17 97 98.1 02/13/25 07:22 Room Air 0.0 02/13/25 07:22 21 Intake/Output Intake and Output 02/13/25 07:00 Intake Total 1250 ml Output Total 500 ml Balance 750 ml Intake Oral 0 ml IV Total 1250 ml Output Urine Total 500 ml General Appearance: Alert, Oriented X3, Cooperative, No acute distress HEENT: Atraumatic, PERRLA Cardiovascular: Normal S1, Normal S2 Genitourinary: No Apparent Abnormalities Musculoskeletal: Normal sensory function, Normal motor function Skin: Dry, Intact Psych/Mental Status: Mental status NL, Mood NL Medications Current Medications Medications Dose Ordered Sig/Myles Route Start Time Stop Time Status Last Admin Dose Admin Empaglifozin 10 mg DAILY PO 02/13/25 10:00 02/13/25 09:58 10 MG Atorvastatin Calcium 10 mg HS PO 02/12/25 22:00 02/12/25 22:12 10 MG Albuterol 2.5 mg Q6HPRN PRN NEB 02/12/25 19:45 Amlodipine Besylate 2.5 mg DAILY PO 02/13/25 10:00 02/13/25 09:59 2.5 MG Hydrochlorothiazide 12.5 mg DAILY PO 02/13/25 10:00 02/13/25 09:58 12.5 MG Levothyroxine Sodium 88 mcg QAM@0600 PO 02/13/25 06:00 02/13/25 06:05 88 MCG Memantine 10 mg Q12HR PO 02/12/25 22:00 02/13/25 09:59 10 MG Metronidazole 100 ml @ 100 mls/hr Q8HR IV 02/12/25 22:00 02/13/25 06:01 100 MLS/HR Diagnostic Test (Pha) 1 strip ACHS 02/12/25 22:00 02/13/25 06:45 1 STRIP Insulin Human Regular ACHS SC 02/12/25 22:00 Dextrose 50 ml UD PRN IV 02/12/25 19:45 Acetaminophen/ Hydrocodone Bitart 1 tab Q4HP PRN PO 02/12/25 19:45 Ondansetron HCl 4 mg Q4HP PRN IV 02/12/25 19:45 Acetaminophen 650 mg Q6HP PRN PO 02/12/25 19:45 Pantoprazole Sodium 40 mg DAILY IV 02/13/25 10:00 02/13/25 10:01 40 MG Laboratory Results Laboratory Tests 02/13/25 06:19 Chemistry Test 02/12/25 12:05 02/13/25 06:19 Calcium Level 10.0 mg/dL (8.7-10.4) 8.3 mg/dL (8.7-10.4) L Coagulation Test 02/12/25 12:05 Prothrombin Time 10.3 sec (9.3-11.8) Prothrombin Time INR 0.97 (0.9-1.15) Activated Partial Thromboplast Time 27.6 SEC (24.5-34.5) Urinalysis Test 02/12/25 11:35 Urine Color Light-yellow (Yellow) Urine Clarity Clear (Clear) Urine pH 5.0 (5.0-9.0) Urine Specific [place] 1.012 (1.001-1.035) Urine Protein Negative (Negative) Urine Ketones Negative (Negative) Urine Blood Negative /uL (Negative) Urine Nitrite Negative (Negative) Urine Bilirubin Negative (Negative) Urine Urobilinogen Normal mg/dL (Negative) Urine Leukocyte Esterase Negative /uL (Negative) Urine RBC <1 /hpf (0 - 4) Urine Microscopic WBC < 1 /HPF (0-5) Urine Squamous Epithelial Cells None seen /hpf (<5) Urine Bacteria None seen /hpf (None Seen) Urine Glucose 4+ mg/dL (Normal) H Labs and/or images reviewed: Labs reviewed by me, Image(s) reviewed by me Assessment/Plan Assessment/Plan Impression: -proctitis -rule out colon CA -dementia -cachexia -diabetes mellitus -primary hypertension Plan: -discussed case with the patient's son and patient. Plans for GI consultation with possible colonoscopy -check A1c, TSH, CEA, LDH -stop hydrochlorothiazide -continue gentle IV hydration -repeat BNP in a.m. -pain management -continue antibiotic therapy with Flagyl Total time spent with patient discussing and formulating plan of care: 35 minutes. This medical document was created using an electronic medical record system with [employer] computerized dictation system. Although this document has been carefully reviewed, there may still be some phonetic and typographical errors. These areas are purely typographical due to imperfections of the software programs, and do not reflect any compromise in the patient's medical care. Plan discussed with: Patient, Other (RN) My Orders Orders - LUIZ MOORE NP Procedure Category Date Status Time Carcinoembryonic LAB 02/13/25 In Process Antigen 10:01 Lactate Dehydrogenase LAB 02/13/25 In Process 10:01 * [facility] Health Record Technician CONS 02/13/25 Transmitted 10:01 Hemoglobin A1c LAB 02/13/25 Verified 10:03 Thyroid Stimulating LAB 02/13/25 Verified Hormone 10:03 Date of Service: Feb 13, 2025 Billing Provider: LUIZ MOORE NP Common Visit Codes: [id number] INP/OBS CARE(HIGH) LUIZ MOORE NP Feb 13, 2025 10:12
[2025-02-13] MEDS: SODIUM CHLORIDE 0.9% 1,000 ML IV SCH (10:15)
--- NOTE | 2025-02-13 16:19 | DVHINCON2 ---
Date of service: Feb 13, [address] chen Reason for Consultation Abdominal pain rectal pain diarrhea and abnormal CAT scan possible rectal mass History of Present Illness This 63-year-old female with a history of diabetes hypothyroidism and was admitted with complaints of abdominal pain diarrhea patient apparently had colonoscopy done in the past and had removed seven polyps and apparently was due for another follow-up colonoscopy. Patient also has got some weight loss patient had a CAT scan done which showed as possible rectal mass patient had some rectal bleeding about two months ago and has IV colon evaluation with [place] flue lining dipper [place] Past Medical History Diabetes hypothyroidism GERD Past Surgical History None Family History Unremarkable Social History Denies smoking or drinking Allergies: Coded Allergies: NO KNOWN ALLERGIES (Unverified , 04/10/24) Home Meds Active Scripts Acetaminophen (Tylenol 8 Hour Arthritis) 650 Mg Tab, 650 MG PO TID, #30 TAB Prov:SANJAYHARSH PA 06/29/24 Reported Medications Metformin Hydrochloride (Metformin Hcl) 500 Mg Tab, 1 TAB PO BID, #60 TAB 3 Refills 02/12/25 Empagliflozin (Jardiance) 25 Mg Tab, 25 MG PO, TAB 02/12/25 Atorvastatin Calcium (Lipitor) 10 Mg Tab, 1 TAB PO QPM, #90 TAB 1 Refill 02/12/25 Zolpidem Tartrate (Zolpidem Tartrate) 5 Mg Tab, 1 TAB PO QPM, #30 TAB 2 Refills 02/12/25 Memantine Hydrochloride (Memantine HCl) 10 Mg Tab, 10 MG PO, TAB 02/12/25 Ciclopirox (Ciclopirox Nail Lacquer) 8 % [place], 1 APPLIC TOP BID, #6.6 ML 6 Refills 02/12/25 Alendronate Sodium (Alendronate Sodium) 35 Mg Tab, 1 TAB PO QWEEKLY, #4 TAB 11 Refills 02/12/25 Current Medications Current Medications Medications (Trade) Dose Ordered Sig/Myles Route PRN Reason Start Time Stop Time Status Last Admin Empaglifozin (Jardiance) 10 mg DAILY PO 02/13/25 10:00 02/13/25 09:58 Atorvastatin Calcium (Lipitor) 10 mg HS PO 02/12/25 22:00 02/12/25 22:12 Albuterol (Ventolin Medneb) 2.5 mg Q6HPRN PRN NEB SHORTNESS OF BREATH 02/12/25 19:45 Amlodipine Besylate (Norvasc Tablet) 2.5 mg DAILY PO 02/13/25 10:00 02/13/25 09:59 Hydrochlorothiazide (hydroCHLOROthiazide TABLET) 12.5 mg DAILY PO 02/13/25 10:00 02/13/25 10:10 DC 02/13/25 09:58 Levothyroxine Sodium (Synthroid Tablet) 88 mcg QAM@0600 PO 02/13/25 06:00 02/13/25 06:05 Memantine (Namenda Tablet) 10 mg Q12HR PO 02/12/25 22:00 02/13/25 09:59 Metronidazole 100 ml @ 100 mls/hr Q8HR IV 02/12/25 22:00 02/13/25 15:22 Diagnostic Test (Pha) (Accu-Chek Comfort Curve T) 1 strip ACHS 02/12/25 22:00 02/13/25 11:43 Insulin Human Regular (InsuLIN R) ACHS SC 02/12/25 22:00 Dextrose 50 ml UD PRN IV Blood Sugar LESS THAN 60 02/12/25 19:45 Acetaminophen/ Hydrocodone Bitart ([place] 5/325MG Tab) 1 tab Q4HP PRN PO MODERATE PAIN (4-6 PAIN SCALE) 02/12/25 19:45 Ondansetron HCl (Zofran) 4 mg Q4HP PRN IV NAUSEA / VOMITING 02/12/25 19:45 Acetaminophen (Tylenol Tablet) 650 mg Q6HP PRN PO PAIN SCALE 1-3 OR TEMP>100.4 02/12/25 19:45 Pantoprazole Sodium (Protonix) 40 mg DAILY IV 02/13/25 10:00 02/13/25 10:01 Sodium Chloride 1,000 ml @ 75 mls/hr [id number] IV 02/13/25 10:15 02/13/25 10:15 Review of Systems Noncontributory Vital Signs Vital Signs Date Time Temp Pulse Resp B/P (MAP) Pulse Ox O2 Delivery O2 Flow Rate FiO2 02/13/25 09:59 106/49 02/13/25 08:37 98.1 52 17 97 98.1 02/13/25 08:00 Room Air* 0 21 Physical Exam Nourished female in no acute distress vital signs stable HEENT examination no pallor no icterus Neck is supple no Clear Cardiovascular and soft no tenderness no rigidity no Masses Extremities no edema no Labs/Diagnostic Data Labs Test 02/13/25 11:44 02/13/25 10:03 02/13/25 10:01 02/13/25 06:19 Range/Units POC Glucose 90 70-106 mg/dl Hemoglobin A1c 6.5 H <5.7 % A1C Thyroid Stimulating Hormone (TSH) 17.80 H 0.55-4.78 uIU/mL Carcinoembryonic Antigen 2.07 <=5.0 ng/mL White Blood Count 4.7 4.4-10.8 10^3/uL Red Blood Count 3.98 L 4.0-5.20 10^6/uL Hemoglobin 12.6 12.2-16.2 g/dL Hematocrit 37.6 36.0-46.0 % Mean Corpuscular Volume 94.4 80.0-100.0 fL Mean Corpuscular Hemoglobin 31.7 28.0-32.0 pg Mean Corpuscular Hemoglobin Concent 33.6 32.0-36.0 g/dL Red Cell Distribution Width 13.4 11.8-14.3 % Platelet Count 205 140-450 10^3/uL Mean Platelet Volume 8.0 6.9-10.8 fL Neutrophils (%) (Auto) 59.9 37.0-80.0 % Lymphocytes (%) (Auto) 33.2 10.0-50.0 % Monocytes (%) (Auto) 6.1 0.0-12.0 % Eosinophils (%) (Auto) 0.4 0.0-7.0 % Basophils (%) (Auto) 0.4 0.0-2.0 % Neutrophils # (Auto) 2.8 1.6-8.6 10 ^3/uL Lymphocytes # (Auto) 1.6 0.4-5.4 10 ^3/uL Monocytes # (Auto) 0.3 0-1.3 10 ^3/uL Eosinophils # (Auto) 0 0-0.8 10 ^3/uL Basophils # (Auto) 0 0-0.2 10 ^3/uL Nucleated Red Blood Cells 0.1 % Sodium Level 142 136-145 mmol/L Potassium Level 3.5 3.5-5.1 mmol/L Chloride Level 109 H 98-107 mmol/L Carbon Dioxide Level 23 20-31 mmol/L Anion Gap 10 5-15 Blood Urea Nitrogen 11 9-23 mg/dL Creatinine 0.65 0.550-1.02 mg/dL Glomerular Filtration Rate Calc 86 >90 mL/min BUN/Creatinine Ratio 16.9 10.0-20.0 Serum Glucose 92 74-106 mg/dL Calcium Level 8.3 L 8.7-10.4 mg/dL Test 02/12/25 12:05 02/12/25 11:41 02/12/25 11:35 Range/Units Prothrombin Time 10.3 9.3-11.8 sec Prothrombin Time INR 0.97 0.9-1.15 Activated Partial Thromboplast Time 27.6 24.5-34.5 SEC Stool Occult Blood Negative Negative Stool Occult Blood Sample #3 Negative Urine Color Light-yellow Yellow Urine Clarity Clear Clear Urine pH 5.0 5.0-9.0 Urine Specific [place] 1.012 1.001-1.035 Urine Protein Negative Negative Urine Ketones Negative Negative Urine Blood Negative Negative /uL Urine Nitrite Negative Negative Urine Bilirubin Negative Negative Urine Urobilinogen Normal Negative mg/dL Urine Leukocyte Esterase Negative Negative /uL Urine RBC <1 0 - 4 /hpf Urine Microscopic WBC < 1 0-5 /HPF Urine Squamous Epithelial Cells None seen <5 /hpf Urine Bacteria None seen None Seen /hpf Urine Glucose 4+ H Normal mg/dL Assessment 83-year-old with the complaints of diarrhea abdominal pain some mild rectal bleeding history of multiple colon polyps in the past history of diabetes hypothyroidism CT showed patient is possibly a rectal mass or colitis. Clinical impression is with a history of polyps and abdominal CAT scan possibility of Ca or other pathology like colitis to be ruled out Plan/Recommendation We will recommend colon evaluation further workup and treatment the according to the colon findings Thank you Dr. Sharif Plan discussed with: Patient JESUS MANUEL SHARIF MD Feb 13, 2025 16:19
[2025-02-13] MEDS: BISACODYL 5 MG EC TAB PO ONE (17:30)
[2025-02-13] MEDS: GOLYTELY 4L KIT PO ONE (17:31)
[2025-02-13] MEDS: TEMAZEPAM 15 MG CAP PO ONE (23:08)
[2025-02-14] VITALS (10 sets, daily range): BP systolic 97–163; BP diastolic 54–87; PULSE 51–76; RESP 10–20; TEMP 97.2–98.1; O2SAT 96–100
[2025-02-14 07:14] LABS: Carbon Dioxide 25 mmol/L (20-31); Sodium 145 mmol/L (136-145)
[2025-02-14 07:15] LABS: Calcium 9.8 mg/dL (8.7-10.4)
[2025-02-14 07:19] LABS: Anion Gap 13 (5-15); Chloride 107 mmol/L (98-107); Potassium 3.3 mmol/L (3.5-5.1)
[2025-02-14 07:20] LABS: BUN/Creatinine Ratio 10.4 (10.0-20.0)
[2025-02-14 07:29] LABS: Blood Urea Nitrogen 8 mg/dL (9-23); Glucose 143 mg/dL (74-106)
--- NOTE | 2025-02-14 07:46 | DVH ---
CHEST RADIOGRAPH Indication: Procedure Technique: Single frontal view of the chest was obtained COMPARISON: None FINDINGS: Lines and Tubes: None Lungs: Clear Pleura: No effusion. No pneumothorax. Cardiomediastinal contours: Unremarkable Bones: Unremarkable IMPRESSION: No acute disease.
[2025-02-14] MEDS ORDERED: PROPOFOL 10 MG/ML 20 ML IV ONE (11:43)
[2025-02-14] MEDS: ONDANSETRON HCL 4 MG/2 ML VIAL IV ONE (12:00)
--- NOTE | 2025-02-14 12:05 | DVHOP2 ---
Operative Report DATE OF PROCEDURE: 02/14/25 INDICATIONS FOR THE PROCEDURE: Abdominal pain constipation history of colon polyps abnormal CAT scan possible rectal mass PROCEDURE PERFORMED: Colonoscopy and polypectomy by cold biopsy forceps Colonoscopy and biopsy mildly inflamed rectum POSTOPERATIVE DIAGNOSIS: Small sigmoid colon polyp 4 mm removed by cold biopsy forceps Small descending colon polyp 5 mm removed by cold biopsy forceps Mild proctitis biopsies taken Internal hemorrhoids INFORMED CONSENT: The risks and benefits and alternatives were explained to the patient and informed consent was obtained. PROCEDURE IN DETAIL: The patient was kept NPO after midnight. The procedure Was done under MAC Olympus colonoscope was passed through the rectum all the way up to cecum. Cecum, ascending colon, hepatic flexure, transverse colon, splenic flexure, descending colon, and sigmoid colon were all visualized and the findings were as follows: Cecum ascending colon hepatic flexure transverse colon splenic flexure descending colon were all visualized and the findings are as follows Findings: This some scattered stool particles in the right colon which was cleaned out as much as possible and grossly no lesions seen In the midsigmoid there was a polyp of about 4 mm which was removed with the help of the biopsy forceps completely In in the distal descending colon there was a polyp about 5 mm removed with the help of the biopsy forceps completely In the rectum there were erythematous streaks suggestive of mild proctitis biopsies taken with the cold biopsy forceps There were no mass lesions no obstruction no evidence of the colitis no strictures in the rectum or other pathology seen In the rectum there were also internal hemorrhoids seen without gross bleeding Tolerated the procedure extremely well post op vital stable ENDOSCOPIC IMPRESSION: Small sigmoid colon polyp 4 mm removed by cold biopsy forceps Small descending colon polyp 5 mm removed by cold biopsy forceps Mild proctitis biopsies taken Internal hemorrhoids SUGGESTIONS: Await the histology of the polyps Symptomatic treatment for proctitis and hemorrhoids If symptoms persist may need further evaluations as necessary Thank you Dr. Sharif With warm regards, JESUS MANUEL SHARIF MD Feb 14, 2025 12:05
[2025-02-14] MEDS: cefTRIAXone 1GM/50ML D5W 50 ML IV ONE (13:45)
[2025-02-14] MEDS: ACETAMINOPHEN 325 MG TAB PO PRN (14:27)
--- NOTE | 2025-02-14 14:57 | DVHPN2 ---
Subjective Patient states that her symptoms have improved. Reviewed: Care Plan, H&P, Labs, Medications Changes from previous H/P or p: No Changes General: Per HPI Objective Vitals Vital Signs Date Time Temp Pulse Resp B/P (MAP) Pulse Ox O2 Delivery O2 Flow Rate FiO2 02/14/25 12:25 66 11 111/6 (41) 98 02/14/25 11:45 Mask 6.0 100 02/14/25 11:45 98.7 98.7 Intake/Output Intake and Output 02/14/25 07:00 Intake Total 1305 ml Balance 1305 ml Intake Oral 505 ml IV Total 800 ml # Voids 7 # Bowel Movements 4 General Appearance: Alert, Oriented X3, Cooperative, No acute distress HEENT: Atraumatic, PERRLA Cardiovascular: Normal S1, Normal S2 Genitourinary: No Apparent Abnormalities Musculoskeletal: Normal sensory function, Normal motor function Skin: Dry, Intact Psych/Mental Status: Mental status NL, Mood NL Medications Current Medications Medications Dose Ordered Sig/Myles Route Start Time Stop Time Status Last Admin Dose Admin Empaglifozin 10 mg DAILY PO 02/13/25 10:00 02/14/25 09:45 10 MG Atorvastatin Calcium 10 mg HS PO 02/12/25 22:00 02/13/25 21:39 10 MG Albuterol 2.5 mg Q6HPRN PRN NEB 02/12/25 19:45 Amlodipine Besylate 2.5 mg DAILY PO 02/13/25 10:00 02/14/25 09:46 2.5 MG Levothyroxine Sodium 88 mcg QAM@0600 PO 02/13/25 06:00 02/13/25 06:05 88 MCG Memantine 10 mg Q12HR PO 02/12/25 22:00 02/14/25 09:45 10 MG Metronidazole 100 ml @ 100 mls/hr Q8HR IV 02/12/25 22:00 02/14/25 14:27 100 MLS/HR Diagnostic Test (Pha) 1 strip ACHS 02/12/25 22:00 02/14/25 11:30 1 STRIP Insulin Human Regular ACHS SC 02/12/25 22:00 02/13/25 21:45 2 UNITS Dextrose 50 ml UD PRN IV 02/12/25 19:45 Acetaminophen/ Hydrocodone Bitart 1 tab Q4HP PRN PO 02/12/25 19:45 Ondansetron HCl 4 mg Q4HP PRN IV 02/12/25 19:45 Acetaminophen 650 mg Q6HP PRN PO 02/12/25 19:45 02/14/25 14:27 650 MG Pantoprazole Sodium 40 mg DAILY IV 02/13/25 10:00 02/14/25 09:45 40 MG Sodium Chloride 1,000 ml @ 75 mls/hr [id number] IV 02/13/25 10:15 02/14/25 12:55 75 MLS/HR Ceftriaxone Sodium 50 ml @ 100 mls/hr DAILY@09 IV 02/15/25 09:00 Laboratory Results Laboratory Tests 02/13/25 06:19 02/14/25 05:59 Chemistry Test 02/14/25 05:59 Calcium Level 9.8 mg/dL (8.7-10.4) Urinalysis Test 02/12/25 11:35 Urine Color Light-yellow (Yellow) Urine Clarity Clear (Clear) Urine pH 5.0 (5.0-9.0) Urine Specific [place] 1.012 (1.001-1.035) Urine Protein Negative (Negative) Urine Ketones Negative (Negative) Urine Blood Negative /uL (Negative) Urine Nitrite Negative (Negative) Urine Bilirubin Negative (Negative) Urine Urobilinogen Normal mg/dL (Negative) Urine Leukocyte Esterase Negative /uL (Negative) Urine RBC <1 /hpf (0 - 4) Urine Microscopic WBC < 1 /HPF (0-5) Urine Squamous Epithelial Cells None seen /hpf (<5) Urine Bacteria None seen /hpf (None Seen) Urine Glucose 4+ mg/dL (Normal) H Microbiology Microbiology Date/Time Source Procedure Growth Status 02/13/25 19:30 Stool Stool Culture - Preliminary Resulted 02/13/25 19:30 Stool Shiga Toxin I & II - Final Resulted Labs and/or images reviewed: Labs reviewed by me, Image(s) reviewed by me Assessment/Plan Assessment/Plan 02/14 patient here with abdominal pain. CT showing proctitis. Patient is on metronidazole we will add ceftriaxone. Patient was consulted with GI and GI has taken her for colonoscopy if this a.m.. Colonoscopy finding some polyps proctitis and internal hemorrhoids. Patient continues to have pain in left lower quadrant. GI has advance diet to soft mechanical. We will continue IV fluids pain control and IV antibiotics. Communication done through son Segundo and he is aware of results and current treatment plan. Impression: -proctitis -rule out colon CA -dementia -cachexia -diabetes mellitus -primary hypertension Plan: -discussed case with the patient's son and patient. Plans for GI consultation with possible colonoscopy -Ca LDH negative A1c 6.5 TSH elevated -stop hydrochlorothiazide -continue gentle IV hydration -pain management -continue antibiotic therapy with Flagyl/ctx Plan discussed with: Patient My Orders Orders - SAMM CASTILLO MD Procedure Category Date Status Time Ceftriaxone 1gm/50ml PHA 02/15/25 In Process D5w (Rocephin) 09:00 Date of Service: Feb 14, 2025 Billing Provider: SAMM CASTILLO MD Common Visit Codes: [id number] INP/OBS CARE(HIGH) SAMM CASTILLO MD Feb 14, 2025 14:56
[2025-02-14] MEDS: HYDROcodone-ACET 5/325MG TAB PO PRN (21:17)
[2025-02-15] VITALS (8 sets, daily range): BP systolic 134–179; BP diastolic 60–80; PULSE 62–70; RESP 16–19; TEMP 97.9–98.3; O2SAT 96–98
[2025-02-15] MEDS: MELATONIN 5 MG TAB PO PRN (00:42)
[2025-02-15 07:42] LABS: Potassium 3.5 mmol/L (3.5-5.1); Sodium 143 mmol/L (136-145)
[2025-02-15 07:43] LABS: Anion Gap 11 (5-15); Calcium 9.8 mg/dL (8.7-10.4); Carbon Dioxide 24 mmol/L (20-31)
[2025-02-15 07:48] LABS: BUN/Creatinine Ratio 18.8 (10.0-20.0); Blood Urea Nitrogen 16 mg/dL (9-23)
[2025-02-15 07:50] LABS: Chloride 108 mmol/L (98-107); Glucose 145 mg/dL (74-106)
[2025-02-15] MEDS: cefTRIAXone 1GM/50ML D5W 50 ML IV SCH (08:12)
--- NOTE | 2025-02-15 13:54 | DVHPN2 ---
Progress Note - Dictate Date Seen: Feb 15, 2025 Has the PT tested + for MRSA If YES, has PT been informed?: No Medical Necessity Reason Pt with a Central, PICC or Fol: No Subjective Fine no gross bleeding now nausea vomiting vital signs Vital Sign Date Time Temp Pulse Resp B/P (MAP) Pulse Ox O2 Delivery O2 Flow Rate FiO2 02/15/25 13:00 98.1 67 19 152/80 (104) 97 98.1 02/15/25 08:10 Room Air* 0 21 Total Intake and Output 02/14/25 02/14/25 02/15/25 15:00 23:00 07:00 Intake Total 50 ml 1025 ml 150 ml Balance 50 ml 1025 ml 150 ml medications Current Medications Medications Dose Ordered Sig/Myles Route Start Time Stop Time Status Last Admin Dose Admin Empaglifozin 10 mg DAILY PO 02/13/25 10:00 02/15/25 08:13 10 MG Atorvastatin Calcium 10 mg HS PO 02/12/25 22:00 02/14/25 21:16 10 MG Albuterol 2.5 mg Q6HPRN PRN NEB 02/12/25 19:45 Cancel Amlodipine Besylate 2.5 mg DAILY PO 02/13/25 10:00 02/15/25 08:19 2.5 MG Levothyroxine Sodium 88 mcg QAM@0600 PO 02/13/25 06:00 02/15/25 06:11 88 MCG Memantine 10 mg Q12HR PO 02/12/25 22:00 02/15/25 08:19 10 MG Metronidazole 100 ml @ 100 mls/hr Q8HR IV 02/12/25 22:00 02/15/25 06:11 100 MLS/HR Diagnostic Test (Pha) 1 strip ACHS 02/12/25 22:00 02/15/25 06:12 1 STRIP Insulin Human Regular ACHS SC 02/12/25 22:00 02/15/25 06:18 3 UNITS Dextrose 50 ml UD PRN IV 02/12/25 19:45 Acetaminophen/ Hydrocodone Bitart 1 tab Q4HP PRN PO 02/12/25 19:45 02/14/25 21:17 1 TAB Ondansetron HCl 4 mg Q4HP PRN IV 02/12/25 19:45 Acetaminophen 650 mg Q6HP PRN PO 02/12/25 19:45 7/5/25 10:53 650 MG Pantoprazole Sodium 40 mg DAILY IV 02/13/25 10:00 02/15/25 08:12 40 MG Sodium Chloride 1,000 ml @ 75 mls/hr [id number] IV 02/13/25 10:15 02/14/25 12:55 75 MLS/HR Ceftriaxone Sodium 50 ml @ 100 mls/hr DAILY@09 IV 02/15/25 09:00 02/15/25 08:12 100 MLS/HR Melatonin 5 mg HS PRN PO 02/15/25 00:45 02/15/25 00:42 5 MG objective Post colonoscopy doing fine tolerating diet okay Waiting for the polyp pathology laboratory and microbiology Laboratory Tests 02/15/25 07:13 02/13/25 06:19 Test 02/15/25 07:13 Range/Units Serum Glucose 145 H 74-106 mg/dL Assessment/Plan 83-year-old with the complaints of diarrhea abdominal pain some mild rectal bleeding history of multiple colon polyps in the past history of diabetes hypothyroidism CT showed patient is possibly a rectal mass or colitis. Colon showed no masses two small polyps Suggestions Watch for biopsy results Increased diet and see Thank you Dr. Sharif Dietary Evaluation Review Comments: When medically feasible advance to a CCHO-60 diet, texture as tolearted Follow GI consult for further assessment. Provide Glucerna PO 240ml as oral supplement BID when diet is advanced. Recomend lipid profile blood test. Expected Outcomes/Goals: gradual wt gain, Improved energy level. Plan discussed with: Patient JESUS MANUEL SHARIF MD Feb 15, 2025 13:54
--- NOTE | 2025-02-15 16:33 | DVHPN2 ---
Subjective Patient states that her symptoms have improved. Reviewed: Care Plan, H&P, Labs, Medications Changes from previous H/P or p: No Changes General: Per HPI Objective Vitals Vital Signs Date Time Temp Pulse Resp B/P (MAP) Pulse Ox O2 Delivery O2 Flow Rate FiO2 02/15/25 13:00 98.1 67 19 152/80 (104) 97 98.1 02/15/25 08:10 Room Air* 0 21 Intake/Output Intake and Output 02/15/25 07:00 Intake Total 1225 ml Balance 1225 ml Intake Oral 625 ml IV Total 600 ml # Voids 6 # Bowel Movements 1 General Appearance: Alert, Oriented X3, Cooperative, No acute distress HEENT: Atraumatic, PERRLA Cardiovascular: Normal S1, Normal S2 Genitourinary: No Apparent Abnormalities Musculoskeletal: Normal sensory function, Normal motor function Skin: Dry, Intact Psych/Mental Status: Mental status NL, Mood NL Medications Current Medications Medications Dose Ordered Sig/Myles Route Start Time Stop Time Status Last Admin Dose Admin Empaglifozin 10 mg DAILY PO 02/13/25 10:00 02/15/25 08:13 10 MG Atorvastatin Calcium 10 mg HS PO 02/12/25 22:00 02/14/25 21:16 10 MG Albuterol 2.5 mg Q6HPRN PRN NEB 02/12/25 19:45 Cancel Amlodipine Besylate 2.5 mg DAILY PO 02/13/25 10:00 02/15/25 08:19 2.5 MG Levothyroxine Sodium 88 mcg QAM@0600 PO 02/13/25 06:00 02/15/25 06:11 88 MCG Memantine 10 mg Q12HR PO 02/12/25 22:00 02/15/25 08:19 10 MG Metronidazole 100 ml @ 100 mls/hr Q8HR IV 02/12/25 22:00 02/15/25 13:52 100 MLS/HR Diagnostic Test (Pha) 1 strip ACHS 02/12/25 22:00 02/15/25 06:12 1 STRIP Insulin Human Regular ACHS SC 02/12/25 22:00 02/15/25 06:18 3 UNITS Dextrose 50 ml UD PRN IV 02/12/25 19:45 Acetaminophen/ Hydrocodone Bitart 1 tab Q4HP PRN PO 02/12/25 19:45 02/15/25 14:08 1 TAB Ondansetron HCl 4 mg Q4HP PRN IV 02/12/25 19:45 Acetaminophen 650 mg Q6HP PRN PO 02/12/25 19:45 02/15/25 10:53 650 MG Pantoprazole Sodium 40 mg DAILY IV 02/13/25 10:00 02/15/25 08:12 40 MG Sodium Chloride 1,000 ml @ 75 mls/hr [id number] IV 02/13/25 10:15 02/15/25 15:22 75 MLS/HR Ceftriaxone Sodium 50 ml @ 100 mls/hr DAILY@09 IV 02/15/25 09:00 02/15/25 08:12 100 MLS/HR Melatonin 5 mg HS PRN PO 02/15/25 00:45 02/15/25 00:42 5 MG Laboratory Results Laboratory Tests 02/13/25 06:19 02/15/25 07:13 Chemistry Test 02/15/25 07:13 Calcium Level 9.8 mg/dL (8.7-10.4) Urinalysis Test 02/12/25 11:35 Urine Color Light-yellow (Yellow) Urine Clarity Clear (Clear) Urine pH 5.0 (5.0-9.0) Urine Specific [place] 1.012 (1.001-1.035) Urine Protein Negative (Negative) Urine Ketones Negative (Negative) Urine Blood Negative /uL (Negative) Urine Nitrite Negative (Negative) Urine Bilirubin Negative (Negative) Urine Urobilinogen Normal mg/dL (Negative) Urine Leukocyte Esterase Negative /uL (Negative) Urine RBC <1 /hpf (0 - 4) Urine Microscopic WBC < 1 /HPF (0-5) Urine Squamous Epithelial Cells None seen /hpf (<5) Urine Bacteria None seen /hpf (None Seen) Urine Glucose 4+ mg/dL (Normal) H Microbiology Microbiology Date/Time Source Procedure Growth Status 02/13/25 19:30 Stool Stool Culture - Preliminary Resulted 02/13/25 19:30 Stool Shiga Toxin I & II - Final Resulted Labs and/or images reviewed: Labs reviewed by me, Image(s) reviewed by me Assessment/Plan Assessment/Plan 02/14 patient here with abdominal pain. CT showing proctitis. Patient is on metronidazole we will add ceftriaxone. Patient was consulted with GI and GI has taken her for colonoscopy if this a.m.. Colonoscopy finding some polyps proctitis and internal hemorrhoids. Patient continues to have pain in left lower quadrant. GI has advance diet to soft mechanical. We will continue IV fluids pain control and IV antibiotics. Communication done through son Segundo and he is aware of results and current treatment plan. 02/15- today patient got very agitated and wanted to leave. Patient son was called and he arrived at bedside and was able to calm down the patient. Patient appears to have some, dementia as she is asking the same questions about what is going on for treatment multiple repeated times. She continues to complain of lower abdominal pain. We will get KUB and pelvic ultrasound. Patient has no history of CORRIE. We will continue antibiotics for now. Continue p.r.n. pain control. Impression: -proctitis -rule out colon CA -dementia -cachexia -diabetes mellitus -primary hypertension Plan: -discussed case with the patient's son and patient. Plans for GI consultation with possible colonoscopy -Ca LDH negative A1c 6.5 TSH elevated -stop hydrochlorothiazide -continue gentle IV hydration -pain management -continue antibiotic therapy with Flagyl/ctx Plan discussed with: Patient My Orders Orders - SAMM CASTILLO MD Procedure Category Date Status Time Pelvic US 02/15/25 Logged 16:13 Kub Abdomen Single XY 02/15/25 Logged View 16:15 Date of Service: Feb 15, 2025 Billing Provider: SAMM CASTILLO MD Common Visit Codes: [id number] INP/OBS CARE(HIGH) SAMM CASTILLO MD Feb 15, 2025 16:33
--- NOTE | 2025-02-15 19:41 | DVH ---
EXAM: US PELVIC INDICATION: adnexal pain. r/o uterine/ovarian etiology TECHNIQUE: Grayscale and color Doppler sonographic imaging evaluation of the region of concern. COMPARISON: None FINDINGS: Lack of significant visualization of the uterus and adnexa. Limited evaluation secondary to overlying bowel gas . IMPRESSION: 1. Nonvisualization of the uterus and adnexa.
--- NOTE | 2025-02-15 19:49 | DVH ---
EXAM: XY KUB ABDOMEN SINGLE VIEW HISTORY: abdominal pain COMPARISON: None TECHNIQUE: Supine view of the abdomen FINDINGS/IMPRESSION: Mild gas distention of multiple bowel loops with normal caliber. Cholecystectomy clips in the right upper quadrant. Levo scoliotic curvature of the lumbar spine. There is no evidence for pneumoperitone um. No abnormal calcifications noted.
[2025-02-16 05:00] VITALS: BP 152/66; PULSE 78; RESP 18; TEMP 98; O2SAT 99
[2025-02-16 07:34] LABS: Anion Gap 12 (5-15); Calcium 9.9 mg/dL (8.7-10.4); Carbon Dioxide 24 mmol/L (20-31); Chloride 107 mmol/L (98-107); Potassium 3.6 mmol/L (3.5-5.1); Sodium 143 mmol/L (136-145)
[2025-02-16 07:39] LABS: BUN/Creatinine Ratio 15.5 (10.0-20.0); Blood Urea Nitrogen 11 mg/dL (9-23)
[2025-02-16 07:42] LABS: Glucose 140 mg/dL (74-106)
[2025-02-16 09:00] VITALS: BP 150/63; PULSE 70; RESP 18; TEMP 97.9; O2SAT 97
[2025-02-16 13:00] VITALS: BP 155/62; PULSE 78; RESP 18; TEMP 98.2; O2SAT 97
--- NOTE | 2025-02-16 13:39 | DVHPN2 ---
Progress Note - Dictate Date Seen: Feb 16, 2025 Has the PT tested + for MRSA If YES, has PT been informed?: No Medical Necessity Reason Pt with a Central, PICC or Fol: No Subjective Doing better today was slightly confused yesterday has got complaints of some diarrhea but no nausea Awaiting biopsy result vital signs Vital Sign Date Time Temp Pulse Resp B/P (MAP) Pulse Ox O2 Delivery O2 Flow Rate FiO2 02/16/25 09:23 150/63 02/16/25 09:00 97.9 70 18 97 97.9 02/16/25 08:00 Room Air* 0 21 Total Intake and Output 02/15/25 02/15/25 02/16/25 15:00 23:00 07:00 Intake Total 50 ml 700 ml 400 ml Balance 50 ml 700 ml 400 ml medications Current Medications Medications Dose Ordered Sig/Myles Route Start Time Stop Time Status Last Admin Dose Admin Empaglifozin 10 mg DAILY PO 02/13/25 10:00 02/16/25 09:22 10 MG Atorvastatin Calcium 10 mg HS PO 02/12/25 22:00 02/15/25 21:07 10 MG Albuterol 2.5 mg Q6HPRN PRN NEB 02/12/25 19:45 Cancel Amlodipine Besylate 2.5 mg DAILY PO 02/13/25 10:00 02/16/25 09:23 2.5 MG Levothyroxine Sodium 88 mcg QAM@0600 PO 02/13/25 06:00 02/16/25 05:40 88 MCG Memantine 10 mg Q12HR PO 02/12/25 22:00 02/16/25 09:22 10 MG Metronidazole 100 ml @ 100 mls/hr Q8HR IV 02/12/25 22:00 02/16/25 05:40 100 MLS/HR Diagnostic Test (Pha) 1 strip ACHS 02/12/25 22:00 02/16/25 11:21 1 STRIP Insulin Human Regular ACHS SC 02/12/25 22:00 02/16/25 11:32 3 UNITS Dextrose 50 ml UD PRN IV 02/12/25 19:45 Acetaminophen/ Hydrocodone Bitart 1 tab Q4HP PRN PO 02/12/25 19:45 02/16/25 00:47 1 TAB Ondansetron HCl 4 mg Q4HP PRN IV 02/12/25 19:45 Acetaminophen 650 mg Q6HP PRN PO 02/12/25 19:45 02/15/25 10:53 650 MG Pantoprazole Sodium 40 mg DAILY IV 02/13/25 10:00 02/16/25 09:22 40 MG Sodium Chloride 1,000 ml @ 75 mls/hr [id number] IV 02/13/25 10:15 02/16/25 05:40 75 MLS/HR Ceftriaxone Sodium 50 ml @ 100 mls/hr DAILY@09 IV 02/15/25 09:00 02/16/25 09:22 100 MLS/HR Melatonin 5 mg HS PRN PO 02/15/25 00:45 02/15/25 21:07 5 MG objective Patient is doing much better less confused today and mild diarrhea but better tolerated feeds good Recommend to continue increasing feeding laboratory and microbiology Laboratory Tests 02/16/25 05:53 02/13/25 06:19 Test 02/16/25 05:53 Range/Units Serum Glucose 140 H 74-106 mg/dL Assessment/Plan 83-year-old with the complaints of diarrhea abdominal pain some mild rectal bleeding history of multiple colon polyps in the past history of diabetes hypothyroidism CT showed patient is possibly a rectal mass or colitis. Colon showed no masses two small polyps Suggestions Increase feedings Symptomatic treatment for the diarrhea Await the biopsy results Could be discharged whenever okay from GI point of view Thank you Dr. Sharif Dietary Evaluation Review Comments: When medically feasible advance to a CCHO-60 diet, texture as tolearted Follow GI consult for further assessment. Provide Glucerna PO 240ml as oral supplement BID when diet is advanced. Recomend lipid profile blood test. Expected Outcomes/Goals: gradual wt gain, Improved energy level. Plan discussed with: Patient JESUS MANUEL SHARIF MD Feb 16, 2025 13:39
--- NOTE | 2025-02-16 16:12 | DVHPN2 ---
Subjective Patient states that her symptoms have improved. Reviewed: Care Plan, H&P, Labs, Medications Changes from previous H/P or p: No Changes General: Per HPI Objective Vitals Vital Signs Date Time Temp Pulse Resp B/P (MAP) Pulse Ox O2 Delivery O2 Flow Rate FiO2 02/16/25 13:00 98.2 78 18 155/62 (93) 97 98.2 02/16/25 08:00 Room Air* 0 21 Intake/Output Intake and Output 02/16/25 07:00 Intake Total 1150 ml Balance 1150 ml Intake Oral 900 ml IV Total 250 ml # Voids 5 # Bowel Movements 2 General Appearance: Alert, Oriented X3, Cooperative, No acute distress HEENT: Atraumatic, PERRLA Cardiovascular: Normal S1, Normal S2 Genitourinary: No Apparent Abnormalities Musculoskeletal: Normal sensory function, Normal motor function Skin: Dry, Intact Psych/Mental Status: Mental status NL, Mood NL Medications Current Medications Medications Dose Ordered Sig/Myles Route Start Time Stop Time Status Last Admin Dose Admin Empaglifozin 10 mg DAILY PO 02/13/25 10:00 02/16/25 09:22 10 MG Atorvastatin Calcium 10 mg HS PO 02/12/25 22:00 02/15/25 21:07 10 MG Albuterol 2.5 mg Q6HPRN PRN NEB 02/12/25 19:45 Cancel Amlodipine Besylate 2.5 mg DAILY PO 02/13/25 10:00 02/16/25 09:23 2.5 MG Levothyroxine Sodium 88 mcg QAM@0600 PO 02/13/25 06:00 02/16/25 05:40 88 MCG Memantine 10 mg Q12HR PO 02/12/25 22:00 02/16/25 09:22 10 MG Metronidazole 100 ml @ 100 mls/hr Q8HR IV 02/12/25 22:00 02/16/25 13:45 100 MLS/HR Diagnostic Test (Pha) 1 strip ACHS 02/12/25 22:00 02/16/25 11:21 1 STRIP Insulin Human Regular ACHS SC 02/12/25 22:00 02/16/25 11:32 3 UNITS Dextrose 50 ml UD PRN IV 02/12/25 19:45 Acetaminophen/ Hydrocodone Bitart 1 tab Q4HP PRN PO 02/12/25 19:45 02/16/25 00:47 1 TAB Ondansetron HCl 4 mg Q4HP PRN IV 02/12/25 19:45 Acetaminophen 650 mg Q6HP PRN PO 02/12/25 19:45 02/15/25 10:53 650 MG Pantoprazole Sodium 40 mg DAILY IV 02/13/25 10:00 02/16/25 09:22 40 MG Sodium Chloride 1,000 ml @ 75 mls/hr [id number] IV 02/13/25 10:15 02/16/25 05:40 75 MLS/HR Ceftriaxone Sodium 50 ml @ 100 mls/hr DAILY@09 IV 02/15/25 09:00 02/16/25 09:22 100 MLS/HR Melatonin 5 mg HS PRN PO 02/15/25 00:45 02/15/25 21:07 5 MG Laboratory Results Laboratory Tests 02/13/25 06:19 02/16/25 05:53 Chemistry Test 02/16/25 05:53 Calcium Level 9.9 mg/dL (8.7-10.4) Urinalysis Test 02/12/25 11:35 Urine Color Light-yellow (Yellow) Urine Clarity Clear (Clear) Urine pH 5.0 (5.0-9.0) Urine Specific [place] 1.012 (1.001-1.035) Urine Protein Negative (Negative) Urine Ketones Negative (Negative) Urine Blood Negative /uL (Negative) Urine Nitrite Negative (Negative) Urine Bilirubin Negative (Negative) Urine Urobilinogen Normal mg/dL (Negative) Urine Leukocyte Esterase Negative /uL (Negative) Urine RBC <1 /hpf (0 - 4) Urine Microscopic WBC < 1 /HPF (0-5) Urine Squamous Epithelial Cells None seen /hpf (<5) Urine Bacteria None seen /hpf (None Seen) Urine Glucose 4+ mg/dL (Normal) H Microbiology Microbiology Date/Time Source Procedure Growth Status 02/13/25 19:30 Stool Stool Culture - Final Complete 02/13/25 19:30 Stool Shiga Toxin I & II - Final Complete Labs and/or images reviewed: Labs reviewed by me, Image(s) reviewed by me Assessment/Plan Assessment/Plan 02/14 patient here with abdominal pain. CT showing proctitis. Patient is on metronidazole we will add ceftriaxone. Patient was consulted with GI and GI has taken her for colonoscopy if this a.m.. Colonoscopy finding some polyps proctitis and internal hemorrhoids. Patient continues to have pain in left lower quadrant. GI has advance diet to soft mechanical. We will continue IV fluids pain control and IV antibiotics. Communication done through son Segundo and he is aware of results and current treatment plan. 02/15- today patient got very agitated and wanted to leave. Patient son was called and he arrived at bedside and was able to calm down the patient. Patient appears to have some, dementia as she is asking the same questions about what is going on for treatment multiple repeated times. She continues to complain of lower abdominal pain. We will get KUB and pelvic ultrasound. Patient has no history of CORRIE. We will continue antibiotics for now. Continue p.r.n. pain control. 02/16- abdominal x-ray and, pelvic ultrasound both showing large amount of bowel gas. This was likely constipation. Today patient has large 3 large bowel movements mostly watery. After these bowel movements pain is resolved. Continuing antibiotics. We will get cultures for stool and stool WBC. Add Florastor. IV hydration. If bowel movements improved tomorrow may discharge patient. Impression: -proctitis -rule out colon CA -dementia -cachexia -diabetes mellitus -primary hypertension Plan: -discussed case with the patient's son and patient. Plans for GI consultation with possible colonoscopy -Ca LDH negative A1c 6.5 TSH elevated -stop hydrochlorothiazide -continue gentle IV hydration -pain management -continue antibiotic therapy with Flagyl/ctx - culture stool (wbc, cx) Plan discussed with: Patient My Orders Orders - SAMM CASTILLO MD Procedure Category Date Status Time Pelvic US 02/15/25 Resulted 16:13 Kub Abdomen Single XY 02/15/25 Resulted View 16:15 Florastor (S. PHA 02/16/25 Verified Boulardii) (Florastor) 22:00 D5w/Sod Chl 0.45% 1/2 PHA 02/16/25 Verified NS 16:15 Date of Service: Feb 16, 2025 Billing Provider: SAMM CASTILLO MD Common Visit Codes: [id number] INP/OBS CARE(HIGH) SAMM CASTILLO MD Feb 16, 2025 16:12
[2025-02-16] MEDS ORDERED: D5W/SOD CHL 0.45% 1,000 ML IV ONE (16:15)
[2025-02-16] MEDS: SODIUM CHLORIDE 0.9% 1,000 ML IV ONE (16:25)
[2025-02-16 16:38] VITALS: BP 136/70; PULSE 68; RESP 16; TEMP 98.1; O2SAT 99
[2025-02-16 20:00] VITALS: PULSE 74; RESP 17; O2SAT 96
[2025-02-16] MEDS: SODIUM CHLORIDE 0.9% 1,000 ML IV SCH (20:35)
[2025-02-16 21:00] VITALS: BP 167/78; PULSE 74; RESP 17; TEMP 97.7; O2SAT 96
[2025-02-16] MEDS: FLORASTOR (S. BOULARDII) 250 MG CAP PO SCH (21:27)
[2025-02-17] VITALS (7 sets, daily range): BP systolic 103–169; BP diastolic 56–89; PULSE 54–102; RESP 18; TEMP 97.4–98.8; O2SAT 95–98
--- NOTE | 2025-02-17 07:50 | ECG ---
[facility] Test Date: 2025-02-14 Test Time: 05:52:44 Pat Name: HAILEE MEJIA Department: Respiratoy Room: 0220 A Gender: F Registered Health Nurse: HENRIQUE Longo : 1940 Requested By: LUIZ MOORE Order Number: [id number] Reading MD: Fred Aguilar Measurements Intervals [place] Rate: 64 P: 15 AL: 269 QRS: 77 QRSD: 92 T: 32 QT: 456 QTc: 471 Interpretive Statements Sinus rhythm Prolonged AL interval Borderline low voltage, extremity leads Nonspecific T abnormalities, lateral leads Electronically Signed On 02-20-2025 19:14:28 PDT by Fred Aguilar Please click the below link to view image of tracing.
[2025-02-17 09:40] LABS: Anion Gap 12 (5-15); Carbon Dioxide 21 mmol/L (20-31); Sodium 141 mmol/L (136-145)
[2025-02-17 09:42] LABS: Calcium 9.1 mg/dL (8.7-10.4)
[2025-02-17 09:46] LABS: BUN/Creatinine Ratio 10.0 (10.0-20.0)
[2025-02-17 09:47] LABS: Blood Urea Nitrogen 7 mg/dL (9-23); Chloride 108 mmol/L (98-107); Glucose 209 mg/dL (74-106); Potassium 3.1 mmol/L (3.5-5.1)
--- NOTE | 2025-02-17 10:12 | DVHPN2 ---
Subjective Patient now reporting abdomen abdominal pain, persistent diarrhea. Reviewed: Care Plan, H&P, Labs, Medications Changes from previous H/P or p: Changes General: Per HPI Objective Vitals Vital Signs Date Time Temp Pulse Resp B/P (MAP) Pulse Ox O2 Delivery O2 Flow Rate FiO2 02/17/25 08:55 134/96 02/17/25 07:30 62 18 95 Room Air* 0 21 02/17/25 01:00 97.7 97.7 Intake/Output Intake and Output 02/17/25 07:00 Intake Total 2930 ml Balance 2930 ml Intake Oral 1100 ml IV Total 1830 ml # Voids 8 # Bowel Movements 5 General Appearance: Alert, Oriented X3, Cooperative, No acute distress HEENT: Atraumatic, PERRLA Cardiovascular: Normal S1, Normal S2 Genitourinary: No Apparent Abnormalities Musculoskeletal: Normal sensory function, Normal motor function Skin: Dry, Intact Psych/Mental Status: Mental status NL, Mood NL Medications Current Medications Medications Dose Ordered Sig/Myles Route Start Time Stop Time Status Last Admin Dose Admin Empaglifozin 10 mg DAILY PO 02/13/25 10:00 02/17/25 08:56 10 MG Atorvastatin Calcium 10 mg HS PO 02/12/25 22:00 02/16/25 21:25 10 MG Albuterol 2.5 mg Q6HPRN PRN NEB 02/12/25 19:45 Cancel Amlodipine Besylate 2.5 mg DAILY PO 02/13/25 10:00 02/17/25 08:55 2.5 MG Levothyroxine Sodium 88 mcg QAM@0600 PO 02/13/25 06:00 02/17/25 05:55 88 MCG Memantine 10 mg Q12HR PO 02/12/25 22:00 02/17/25 08:53 10 MG Metronidazole 100 ml @ 100 mls/hr Q8HR IV 02/12/25 22:00 02/17/25 05:55 100 MLS/HR Diagnostic Test (Pha) 1 strip ACHS 02/12/25 22:00 02/17/25 06:53 1 STRIP Insulin Human Regular ACHS SC 02/12/25 22:00 02/16/25 17:01 3 UNITS Dextrose 50 ml UD PRN IV 02/12/25 19:45 Acetaminophen/ Hydrocodone Bitart 1 tab Q4HP PRN PO 02/12/25 19:45 02/16/25 00:47 1 TAB Ondansetron HCl 4 mg Q4HP PRN IV 02/12/25 19:45 Acetaminophen 650 mg Q6HP PRN PO 02/12/25 19:45 02/15/25 10:53 650 MG Pantoprazole Sodium 40 mg DAILY IV 02/13/25 10:00 02/17/25 08:53 40 MG Ceftriaxone Sodium 50 ml @ 100 mls/hr DAILY@09 IV 02/15/25 09:00 02/17/25 08:52 100 MLS/HR Melatonin 5 mg HS PRN PO 02/15/25 00:45 02/16/25 21:25 5 MG Saccharomyces Boulardii 250 mg BID PO 02/16/25 22:00 02/17/25 08:56 250 MG Sodium Chloride 1,000 ml @ 60 mls/hr [id number] IV 02/16/25 20:30 02/16/25 20:35 60 MLS/HR Laboratory Results Laboratory Tests 02/13/25 06:19 02/17/25 08:53 Chemistry Test 02/17/25 08:53 Calcium Level 9.1 mg/dL (8.7-10.4) Urinalysis Test 02/12/25 11:35 Urine Color Light-yellow (Yellow) Urine Clarity Clear (Clear) Urine pH 5.0 (5.0-9.0) Urine Specific [place] 1.012 (1.001-1.035) Urine Protein Negative (Negative) Urine Ketones Negative (Negative) Urine Blood Negative /uL (Negative) Urine Nitrite Negative (Negative) Urine Bilirubin Negative (Negative) Urine Urobilinogen Normal mg/dL (Negative) Urine Leukocyte Esterase Negative /uL (Negative) Urine RBC <1 /hpf (0 - 4) Urine Microscopic WBC < 1 /HPF (0-5) Urine Squamous Epithelial Cells None seen /hpf (<5) Urine Bacteria None seen /hpf (None Seen) Urine Glucose 4+ mg/dL (Normal) H Microbiology Microbiology Date/Time Source Procedure Growth Status 02/13/25 19:30 Stool Stool Culture - Final Complete 02/13/25 19:30 Stool Shiga Toxin I & II - Final Complete Labs and/or images reviewed: Labs reviewed by me, Image(s) reviewed by me Assessment/Plan Assessment/Plan Impression: -proctitis -rule out colon CA -dementia -cachexia -diabetes mellitus -primary hypertension Plan: Events: Patient's symptoms have returned. Patient now hypokalemic with potassium 3.1. Persistent abdominal pain. -potassium replacement -GI consultation: Recommendations reviewed. Cleared from their standpoint -start normal saline with 20 mEq potassium chloride -Imodium -pain management -continue antibiotic therapy with Flagyl -repeat labs in a.m. -discussed plan of care with the patient's son who was bedside. Total time spent with patient discussing and formulating plan of care: 35 minutes. This medical document was created using an electronic medical record system with [employer] dictation system. Although this document has been carefully reviewed, there may still be some phonetic and typographical errors. These areas are purely typographical due to imperfections of the software programs, and do not reflect any compromise in the patient's medical care. Plan discussed with: Patient, Other (RN) My Orders Orders - LUIZ MOORE NP Procedure Category Date Status Time Loperamide Capsule PHA 02/17/25 Verified (Imodium Capsule) 10:15 Date of Service: Feb 17, 2025 Billing Provider: LUIZ MOORE NP Common Visit Codes: [id number] INP/OBS CARE(HIGH) LUIZ MOORE NP Feb 17, 2025 10:12
[2025-02-17] MEDS ORDERED: LOPERAMIDE HCL 2 MG CAP/TAB PO PRN (10:15)
[2025-02-17] MEDS: SOD CHL 0.9%/ KCL 20MEQ 1,000 ML IV ONE (11:07)
[2025-02-17] MEDS: POTASSIUM EFFERVESENT TAB 25 MEQ PO ONE (11:08)
--- NOTE | 2025-02-17 17:42 | DVHPN2 ---
Progress Note - Dictate Date Seen: Feb 17, 2025 Has the PT tested + for MRSA If YES, has PT been informed?: No Medical Necessity Reason Pt with a Central, PICC or Fol: No Subjective 84-year-old lady admitted with abdominal pain rectal pain diarrhea and abnormal CAT scan possible rectal mass The patient was seen at bedside and she continues to complain of lower abdominal pain and moderate rectal pain and is tearful Patient has been moving her bowels and there was no rectal bleeding reported I performed a rectal exam that was mildly tender but there was no obstipation or palpable mass or bleeding Colonoscopy was performed on 02/14/[address] Sharif POSTOPERATIVE DIAGNOSIS: Small sigmoid colon polyp 4 mm removed by cold biopsy forceps Small descending colon polyp 5 mm removed by cold biopsy forceps Mild proctitis biopsies taken Internal hemorrhoids vital signs Vital Sign Date Time Temp Pulse Resp B/P (MAP) Pulse Ox O2 Delivery O2 Flow Rate FiO2 02/17/25 17:00 98.8 82 18 169/81 (110) 97 98.8 02/17/25 07:30 Room Air* 0 21 Total Intake and Output 02/16/25 02/16/25 02/17/25 15:00 23:00 07:00 Intake Total 150 ml 2000 ml 780 ml Balance 150 ml 2000 ml 780 ml medications Current Medications Medications Dose Ordered Sig/Myles Route Start Time Stop Time Status Last Admin Dose Admin Empaglifozin 10 mg DAILY PO 02/13/25 10:00 02/17/25 08:56 10 MG Atorvastatin Calcium 10 mg HS PO 02/12/25 22:00 02/16/25 21:25 10 MG Albuterol 2.5 mg Q6HPRN PRN NEB 02/12/25 19:45 Cancel Amlodipine Besylate 2.5 mg DAILY PO 02/13/25 10:00 02/17/25 08:55 2.5 MG Levothyroxine Sodium 88 mcg QAM@0600 PO 02/13/25 06:00 02/17/25 05:55 88 MCG Memantine 10 mg Q12HR PO 02/12/25 22:00 02/17/25 08:53 10 MG Metronidazole 100 ml @ 100 mls/hr Q8HR IV 02/12/25 22:00 02/17/25 14:12 100 MLS/HR Diagnostic Test (Pha) 1 strip ACHS 02/12/25 22:00 02/17/25 17:19 1 STRIP Insulin Human Regular ACHS SC 02/12/25 22:00 02/17/25 11:43 4 UNITS Dextrose 50 ml UD PRN IV 02/12/25 19:45 Acetaminophen/ Hydrocodone Bitart 1 tab Q4HP PRN PO 02/12/25 19:45 02/16/25 00:47 1 TAB Ondansetron HCl 4 mg Q4HP PRN IV 02/12/25 19:45 Acetaminophen 650 mg Q6HP PRN PO 02/12/25 19:45 02/15/25 10:53 650 MG Pantoprazole Sodium 40 mg DAILY IV 02/13/25 10:00 02/17/25 08:53 40 MG Ceftriaxone Sodium 50 ml @ 100 mls/hr DAILY@09 IV 02/15/25 09:00 02/17/25 08:52 100 MLS/HR Melatonin 5 mg HS PRN PO 02/15/25 00:45 02/16/25 21:25 5 MG Saccharomyces Boulardii 250 mg BID PO 02/16/25 22:00 02/17/25 08:56 250 MG Loperamide HCl 2 mg PRN PRN PO 02/17/25 10:15 objective General Appearance: Alert, Oriented X3, tearful and anxious HEENT: Atraumatic, PERRLA Cardiovascular: Normal S1, Normal S2 Genitourinary: No Apparent Abnormalities Musculoskeletal: Normal sensory function, Normal motor function Rectal exam: Mildly tender no stool impaction no palpable fissure or bleeding or mass laboratory and microbiology Laboratory Tests 02/17/25 08:53 02/13/25 06:19 Test 02/17/25 08:53 Range/Units Serum Glucose 209 H 74-106 mg/dL CT SCAN ABD PELVIS IMPRESSION: Rectal wall thickening which can be seen with proctocolitis. Recommend GI consultation to exclude underlying rectal mass/ neoplasm. Problems(with codes): (1) Rectal pain (2) Colon polyp (3) Proctocolitis (4) Diarrhea (5) Abdominal pain Prognosis Plan As the patient appears to be fairly symptomatic from her proctitis I will initiate treatment with mesalamine and a Medrol Dosepak We can also give her xylocaine ointment and hydrocortisone suppositories Await biopsy results; stool for WBC We will give her some Bentyl 10 mg p.o. three times a day as needed for rectal and abdominal pain Advance diet as tolerated, patient wants Swarm foods Patient also needs anxiety management surgical services coordinator consult is on board Dietary Evaluation Review Comments: When medically feasible advance to a CCHO-60 diet, texture as tolearted Follow GI consult for further assessment. Provide Glucerna PO 240ml as oral supplement BID when diet is advanced. Recomend lipid profile blood test. Expected Outcomes/Goals: gradual wt gain, Improved energy level. Plan discussed with: Patient, Other (Nurse) OPHELIA RODRIGUEZ MD Feb 17, 2025 17:42
[2025-02-17] MEDS ORDERED: LIDOCAINE 2% TOPICAL JELLY 5 ML URJT TOP PRN (17:45)
[2025-02-17] MEDS: DICYCLOMINE HCL 10 MG CAP PO ONE (18:38)
[2025-02-17] MEDS: MESALAMINE 400mg Delayed Release Cap PO SCH (22:02)
[2025-02-17] MEDS: HYDROCORTISONE ACET 25 MG RECTAL SUPP PR SCH (22:07)
[2025-02-17] MEDS ORDERED: MEMA1TAB5 PO (23:03)
[2025-02-17] MEDS ORDERED: EMPA1TAB PO (23:03)
[2025-02-17] MEDS ORDERED: LEVO88TA4 PO (23:05)
[2025-02-17] MEDS ORDERED: FLUO1TAB12 PO (23:05)
[2025-02-18] VITALS (7 sets, daily range): BP systolic 127–154; BP diastolic 64–97; PULSE 68–102; RESP 16–18; TEMP 96.6–98.1; O2SAT 96–98
[2025-02-18 07:16] LABS: Potassium 3.9 mmol/L (3.5-5.1); Sodium 142 mmol/L (136-145)
[2025-02-18 07:17] LABS: Anion Gap 9 (5-15); Carbon Dioxide 25 mmol/L (20-31); Chloride 108 mmol/L (98-107)
[2025-02-18 07:18] LABS: Calcium 9.6 mg/dL (8.7-10.4)
[2025-02-18 07:22] LABS: BUN/Creatinine Ratio 14.1 (10.0-20.0); Blood Urea Nitrogen 10 mg/dL (9-23)
[2025-02-18 07:23] LABS: Glucose 128 mg/dL (74-106)
[2025-02-18 07:28] LABS: Magnesium 2.2 mg/dL (1.6-2.6)
--- NOTE | 2025-02-18 11:12 | DVHPN2 ---
Subjective Patient has improvement with the pain, continues to report having diarrhea Reviewed: Care Plan, H&P, Labs, Medications Changes from previous H/P or p: No Changes General: Per HPI Objective Vitals Vital Signs Date Time Temp Pulse Resp B/P (MAP) Pulse Ox O2 Delivery O2 Flow Rate FiO2 02/18/25 09:43 150/80 02/18/25 08:33 96.6 68 16 98 96.6 02/17/25 20:00 Room Air* 0 21 Intake/Output Intake and Output 02/18/25 07:00 Intake Total 2055 ml Balance 2055 ml Intake Oral 1580 ml IV Total 475 ml # Voids 9 # Bowel Movements 5 General Appearance: Alert, Oriented X3, Cooperative, No acute distress HEENT: Atraumatic, PERRLA Cardiovascular: Normal S1, Normal S2 Genitourinary: No Apparent Abnormalities Musculoskeletal: Normal sensory function, Normal motor function Skin: Dry, Intact Psych/Mental Status: Mental status NL, Mood NL Medications Current Medications Medications Dose Ordered Sig/Myles Route Start Time Stop Time Status Last Admin Dose Admin Empaglifozin 10 mg DAILY PO 02/13/25 10:00 02/18/25 09:41 10 MG Atorvastatin Calcium 10 mg HS PO 02/12/25 22:00 02/17/25 22:06 10 MG Albuterol 2.5 mg Q6HPRN PRN NEB 02/12/25 19:45 Cancel Amlodipine Besylate 2.5 mg DAILY PO 02/13/25 10:00 02/18/25 09:43 2.5 MG Levothyroxine Sodium 88 mcg QAM@0600 PO 02/13/25 06:00 02/18/25 06:28 88 MCG Memantine 10 mg Q12HR PO 02/12/25 22:00 02/18/25 09:42 10 MG Metronidazole 100 ml @ 100 mls/hr Q8HR IV 02/12/25 22:00 02/18/25 06:28 100 MLS/HR Diagnostic Test (Pha) 1 strip ACHS 02/12/25 22:00 02/18/25 06:28 1 STRIP Insulin Human Regular ACHS SC 02/12/25 22:00 02/18/25 06:48 2 UNITS Dextrose 50 ml UD PRN IV 02/12/25 19:45 Acetaminophen/ Hydrocodone Bitart 1 tab Q4HP PRN PO 02/12/25 19:45 02/16/25 00:47 1 TAB Ondansetron HCl 4 mg Q4HP PRN IV 02/12/25 19:45 Acetaminophen 650 mg Q6HP PRN PO 02/12/25 19:45 02/15/25 10:53 650 MG Pantoprazole Sodium 40 mg DAILY IV 02/13/25 10:00 02/18/25 09:41 40 MG Ceftriaxone Sodium 50 ml @ 100 mls/hr DAILY@09 IV 02/15/25 09:00 02/18/25 08:13 100 MLS/HR Melatonin 5 mg HS PRN PO 02/15/25 00:45 02/17/25 22:07 5 MG Saccharomyces Boulardii 250 mg BID PO 02/16/25 22:00 02/18/25 09:47 250 MG Loperamide HCl 2 mg PRN PRN PO 02/17/25 10:15 Mesalamine 400 mg TID PO 02/17/25 22:00 02/18/25 06:28 400 MG Hydrocortisone Acetate 25 mg Q12HR MS 02/17/25 22:00 02/17/25 22:07 25 MG Lidocaine HCl 5 ml Q8HPRN PRN TOP 02/17/25 17:45 Laboratory Results Laboratory Tests 02/13/25 06:19 02/18/25 06:17 Chemistry Test 02/18/25 06:17 Calcium Level 9.6 mg/dL (8.7-10.4) Magnesium Level 2.2 mg/dL (1.6-2.6) Urinalysis Test 02/12/25 11:35 Urine Color Light-yellow (Yellow) Urine Clarity Clear (Clear) Urine pH 5.0 (5.0-9.0) Urine Specific [place] 1.012 (1.001-1.035) Urine Protein Negative (Negative) Urine Ketones Negative (Negative) Urine Blood Negative /uL (Negative) Urine Nitrite Negative (Negative) Urine Bilirubin Negative (Negative) Urine Urobilinogen Normal mg/dL (Negative) Urine Leukocyte Esterase Negative /uL (Negative) Urine RBC <1 /hpf (0 - 4) Urine Microscopic WBC < 1 /HPF (0-5) Urine Squamous Epithelial Cells None seen /hpf (<5) Urine Bacteria None seen /hpf (None Seen) Urine Glucose 4+ mg/dL (Normal) H Microbiology Microbiology Date/Time Source Procedure Growth Status 02/17/25 19:50 Stool Stool Culture - Preliminary Resulted 02/17/25 19:50 Stool Shiga Toxin I & II Pending Resulted Labs and/or images reviewed: Labs reviewed by me, Image(s) reviewed by me Assessment/Plan Assessment/Plan Impression: -proctitis -rule out colon CA -dementia -cachexia -diabetes mellitus -primary hypertension Plan: Events: Patient continues to report having diarrhea. We will give a trial of Questran. -GI consultation: Recommendations reviewed. Cleared from their standpoint -start normal saline with 20 mEq potassium chloride -Imodium -pain management -continue antibiotic therapy with Flagyl -repeat labs in a.m. -discussed plan of care with the patient's son who was bedside. Total time spent with patient discussing and formulating plan of care: 35 minutes. This medical document was created using an electronic medical record system with [employer] dictation system. Although this document has been carefully reviewed, there may still be some phonetic and typographical errors. These areas are purely typographical due to imperfections of the software programs, and do not reflect any compromise in the patient's medical care. Plan discussed with: Patient, Other (rn) Date of Service: Feb 18, 2025 Billing Provider: LUIZ MOORE NP Common Visit Codes: [id number] INP/OBS CARE(HIGH) LUIZ MOORE NP Feb 18, 2025 11:12
[2025-02-18] MEDS: CHOLESTYRAMINE 4 GM POWDER PO ONE (12:54)
--- NOTE | 2025-02-18 22:46 | DVHPN2 ---
Progress Note - Dictate Date Seen: Feb 18, 2025 Has the PT tested + for MRSA If YES, has PT been informed?: No Medical Necessity Reason Pt with a Central, PICC or Fol: No Subjective Patient is seen at bedside, she is resting comfortably today Patient is feeling better and she is getting hemorrhoids suppositories Patient had four loose bowel movements today but no bleeding Patient has been started on Questran vital signs Vital Sign Date Time Temp Pulse Resp B/P (MAP) Pulse Ox O2 Delivery O2 Flow Rate FiO2 02/18/25 21:00 97.0 72 17 136/64 (88) 97 97.0 02/18/25 08:00 Room Air* 0 21 Total Intake and Output 02/17/25 02/17/25 02/18/25 15:00 23:00 07:00 Intake Total 275 ml 1280 ml 500 ml Balance 275 ml 1280 ml 500 ml medications Current Medications Medications Dose Ordered Sig/Myles Route Start Time Stop Time Status Last Admin Dose Admin Empaglifozin 10 mg DAILY PO 02/13/25 10:00 02/18/25 09:41 10 MG Atorvastatin Calcium 10 mg HS PO 02/12/25 22:00 02/18/25 22:11 10 MG Albuterol 2.5 mg Q6HPRN PRN NEB 02/12/25 19:45 Cancel Amlodipine Besylate 2.5 mg DAILY PO 02/13/25 10:00 02/18/25 09:43 2.5 MG Levothyroxine Sodium 88 mcg QAM@0600 PO 02/13/25 06:00 02/18/25 06:28 88 MCG Memantine 10 mg Q12HR PO 02/12/25 22:00 02/18/25 22:11 10 MG Metronidazole 100 ml @ 100 mls/hr Q8HR IV 02/12/25 22:00 02/18/25 22:11 100 MLS/HR Diagnostic Test (Pha) 1 strip ACHS 02/12/25 22:00 02/18/25 22:12 1 STRIP Insulin Human Regular ACHS SC 02/12/25 22:00 02/18/25 22:32 2 UNITS Dextrose 50 ml UD PRN IV 02/12/25 19:45 Acetaminophen/ Hydrocodone Bitart 1 tab Q4HP PRN PO 02/12/25 19:45 02/18/25 22:19 1 TAB Ondansetron HCl 4 mg Q4HP PRN IV 02/12/25 19:45 Acetaminophen 650 mg Q6HP PRN PO 02/12/25 19:45 02/15/25 10:53 650 MG Pantoprazole Sodium 40 mg DAILY IV 02/13/25 10:00 02/18/25 09:41 40 MG Ceftriaxone Sodium 50 ml @ 100 mls/hr DAILY@09 IV 02/15/25 09:00 02/18/25 08:13 100 MLS/HR Melatonin 5 mg HS PRN PO 02/15/25 00:45 02/18/25 22:11 5 MG Saccharomyces Boulardii 250 mg BID PO 02/16/25 22:00 02/18/25 22:12 250 MG Loperamide HCl 2 mg PRN PRN PO 02/17/25 10:15 Mesalamine 400 mg TID PO 02/17/25 22:00 02/18/25 22:11 400 MG Hydrocortisone Acetate 25 mg Q12HR NE 02/17/25 22:00 02/18/25 22:12 25 MG Lidocaine HCl 5 ml Q8HPRN PRN TOP 02/17/25 17:45 objective General Appearance: Alert, Oriented X3, tearful and anxious HEENT: Atraumatic, PERRLA Cardiovascular: Normal S1, Normal S2 Genitourinary: No Apparent Abnormalities Musculoskeletal: Normal sensory function, Normal motor function Rectal exam: Mildly tender no stool impaction no palpable fissure or bleeding or mass laboratory and microbiology Laboratory Tests 02/18/25 06:17 02/13/25 06:19 Test 02/18/25 06:17 Range/Units Serum Glucose 128 H 74-106 mg/dL Problems(with codes): (1) Proctitis (2) Abdominal pain (3) Diarrhea (4) Colon polyp (5) Rectal pain Prognosis PLAN Continue treatment with mesalamine and a Medrol Dosepak We can also give her xylocaine ointment and hydrocortisone suppositories Await biopsy results; stool for WBC and occult blood negative We will give her some Bentyl 10 mg p.o. two times a day as needed for rectal and abdominal pain Advance diet as tolerated, patient wants warm foods Patient also needs anxiety management account services representative consult is on board Dietary Evaluation Review Comments: When medically feasible advance to a CCHO-60 diet, texture as tolearted Follow GI consult for further assessment. Provide Glucerna PO 240ml as oral supplement BID when diet is advanced. Recomend lipid profile blood test. Expected Outcomes/Goals: gradual wt gain, Improved energy level. Plan discussed with: Patient, Other (Nurse) OPHELIA RODRIGUEZ MD Feb 18, 2025 22:46
[2025-02-19] VITALS (7 sets, daily range): BP systolic 122–185; BP diastolic 62–79; PULSE 62–85; RESP 17–20; TEMP 97.1–98; O2SAT 96–99
[2025-02-19] MEDS: methylPREDNISolone SOD SUCC 40 MG/ML VL IV ONE ×2 (00:20→22:00)
--- NOTE | 2025-02-19 13:13 | DVH ---
Date: 02/19/2025 11:48 AM Examination: XY KUB ABDOMEN SINGLE VIEW History: abdominal pain, diarrhea Comparison: XY KUB ABDOMEN SINGLE VIEW on DOS: 02/15/25 TECHNIQUE: Frontal views of the abdomen was obtained. FINDINGS: Bowel gas pattern is unremarkable. Right upper quadrant surgical The lung bases are unremarkable. No acute osseous abnormality identified. IMPRESSION: Nonobstructive bowel gas pattern. Large stool burden.
--- NOTE | 2025-02-19 13:23 | DVHPN2 ---
Subjective Patient has improvement with the pain, continues to report having diarrhea Reviewed: Care Plan, H&P, Labs, Medications Changes from previous H/P or p: No Changes General: Per HPI Objective Vitals Vital Signs Date Time Temp Pulse Resp B/P (MAP) Pulse Ox O2 Delivery O2 Flow Rate FiO2 02/19/25 09:09 122/62 02/19/25 09:00 97.8 62 18 98 97.8 02/19/25 08:00 Room Air* 0 21 Intake/Output Intake and Output 02/19/25 07:00 Intake Total 1490 ml Balance 1490 ml Intake Oral 1040 ml IV Total 450 ml # Voids 9 # Bowel Movements 6 General Appearance: Alert, Oriented X3, Cooperative, No acute distress HEENT: Atraumatic, PERRLA Cardiovascular: Normal S1, Normal S2 Genitourinary: No Apparent Abnormalities Musculoskeletal: Normal sensory function, Normal motor function Skin: Dry, Intact Psych/Mental Status: Mental status NL, Mood NL Medications Current Medications Medications Dose Ordered Sig/Myles Route Start Time Stop Time Status Last Admin Dose Admin Empaglifozin 10 mg DAILY PO 02/13/25 10:00 02/19/25 09:08 10 MG Atorvastatin Calcium 10 mg HS PO 02/12/25 22:00 02/18/25 22:11 10 MG Albuterol 2.5 mg Q6HPRN PRN NEB 02/12/25 19:45 Cancel Amlodipine Besylate 2.5 mg DAILY PO 02/13/25 10:00 02/19/25 09:09 2.5 MG Levothyroxine Sodium 88 mcg QAM@0600 PO 02/13/25 06:00 02/19/25 05:34 88 MCG Memantine 10 mg Q12HR PO 02/12/25 22:00 02/19/25 09:08 10 MG Metronidazole 100 ml @ 100 mls/hr Q8HR IV 02/12/25 22:00 02/19/25 05:34 100 MLS/HR Diagnostic Test (Pha) 1 strip ACHS 02/12/25 22:00 02/19/25 11:35 1 STRIP Insulin Human Regular ACHS SC 02/12/25 22:00 02/19/25 11:40 6 UNITS Dextrose 50 ml UD PRN IV 02/12/25 19:45 Acetaminophen/ Hydrocodone Bitart 1 tab Q4HP PRN PO 02/12/25 19:45 02/19/25 09:10 1 TAB Ondansetron HCl 4 mg Q4HP PRN IV 02/12/25 19:45 Acetaminophen 650 mg Q6HP PRN PO 02/12/25 19:45 02/15/25 10:53 650 MG Pantoprazole Sodium 40 mg DAILY IV 02/13/25 10:00 02/19/25 09:07 40 MG Ceftriaxone Sodium 50 ml @ 100 mls/hr DAILY@09 IV 02/15/25 09:00 02/19/25 09:07 100 MLS/HR Melatonin 5 mg HS PRN PO 02/15/25 00:45 02/18/25 22:11 5 MG Saccharomyces Boulardii 250 mg BID PO 02/16/25 22:00 02/19/25 09:08 250 MG Loperamide HCl 2 mg PRN PRN PO 02/17/25 10:15 Mesalamine 400 mg TID PO 02/17/25 22:00 02/19/25 05:34 400 MG Hydrocortisone Acetate 25 mg Q12HR NH 02/17/25 22:00 02/19/25 09:10 25 MG Lidocaine HCl 5 ml Q8HPRN PRN TOP 02/17/25 17:45 Laboratory Results Laboratory Tests 02/13/25 06:19 02/18/25 06:17 Urinalysis Test 02/12/25 11:35 Urine Color Light-yellow (Yellow) Urine Clarity Clear (Clear) Urine pH 5.0 (5.0-9.0) Urine Specific [place] 1.012 (1.001-1.035) Urine Protein Negative (Negative) Urine Ketones Negative (Negative) Urine Blood Negative /uL (Negative) Urine Nitrite Negative (Negative) Urine Bilirubin Negative (Negative) Urine Urobilinogen Normal mg/dL (Negative) Urine Leukocyte Esterase Negative /uL (Negative) Urine RBC <1 /hpf (0 - 4) Urine Microscopic WBC < 1 /HPF (0-5) Urine Squamous Epithelial Cells None seen /hpf (<5) Urine Bacteria None seen /hpf (None Seen) Urine Glucose 4+ mg/dL (Normal) H Microbiology Microbiology Date/Time Source Procedure Growth Status 02/17/25 19:50 Stool Stool Culture - Preliminary Resulted 02/17/25 19:50 Stool Shiga Toxin I & II - Final Resulted Labs and/or images reviewed: Labs reviewed by me, Image(s) reviewed by me Assessment/Plan Assessment/Plan Impression: -proctitis -rule out colon CA -dementia -cachexia -diabetes mellitus -primary hypertension Plan: Events: Still having multiple BMs and abdominal pain. -Repeat labs, KUB -continue questran and immodium. -Physical therapy -GI consultation: Recommendations reviewed. Cleared from their standpoint -pain management -continue antibiotic therapy with Flagyl -discussed plan of care with the patient's son who was bedside. Total time spent with patient discussing and formulating plan of care: 35 minutes. This medical document was created using an electronic medical record system with [employer] dictation system. Although this document has been carefully reviewed, there may still be some phonetic and typographical errors. These areas are purely typographical due to imperfections of the software programs, and do not reflect any compromise in the patient's medical care. Plan discussed with: Patient, Other (RN) My Orders Orders - LUIZ MOORE NP Procedure Category Date Status Time Complete Blood Count LAB 02/19/25 Logged 11:39 Comprehensive LAB 02/19/25 Logged Metabolic Panel 11:39 Kub Abdomen Single XY 02/19/25 Resulted View 11:39 Date of Service: Feb 19, 2025 Billing Provider: LUIZ MOORE NP Common Visit Codes: [id number] INP/OBS CARE(HIGH) LUIZ MOORE NP Feb 19, 2025 13:23
[2025-02-19 13:44] LABS: Hematocrit 40.5 % (36.0-46.0); Hemoglobin 13.7 g/dL (12.2-16.2); Mean Corpuscular Hemoglobin 32.1 pg (28.0-32.0); Mean Corpuscular Volume 95.1 fL (80.0-100.0); Nucleated Red Blood Cells % 0.0 %
[2025-02-19 14:04] LABS: Albumin 3.8 g/dL (3.2-4.8); Alkaline Phosphatase 54 U/L (46-116); Anion Gap 9 (5-15); BUN/Creatinine Ratio 14.3 (10.0-20.0); Blood Urea Nitrogen 12 mg/dL (9-23); Calcium 9.8 mg/dL (8.7-10.4); Carbon Dioxide 21 mmol/L (20-31); Chloride 106 mmol/L (98-107); Potassium 4.3 mmol/L (3.5-5.1); Sodium 136 mmol/L (136-145); Total Protein 6.1 g/dL (5.7-8.2)
[2025-02-19 14:05] LABS: Alanine Aminotransferase 52 U/L (7-40); Bilirubin, Total 0.4 mg/dL (0.2-1.0); Glucose 251 mg/dL (74-106)
[2025-02-19] MEDS: LORazepam 2MG/ML-1ML VIAL IV PRN (21:11)
--- NOTE | 2025-02-19 21:20 | DVHPN2 ---
Progress Note - Dictate Date Seen: Feb 19, 2025 Has the PT tested + for MRSA If YES, has PT been informed?: No Medical Necessity Reason Pt with a Central, PICC or Fol: No Subjective Patient continues to have 5-6 bowel movements a day Patient is feeling better and she is getting hemorrhoids suppositories Patient has been started on Questran vital signs Vital Sign Date Time Temp Pulse Resp B/P (MAP) Pulse Ox O2 Delivery O2 Flow Rate FiO2 02/19/25 20:00 Room Air* 0 21 02/19/25 17:01 97.9 83 20 185/75 (111) 96 97.9 Total Intake and Output 02/18/25 02/18/25 02/19/25 15:00 23:00 07:00 Intake Total 250 ml 890 ml 350 ml Balance 250 ml 890 ml 350 ml medications Current Medications Medications Dose Ordered Sig/Myles Route Start Time Stop Time Status Last Admin Dose Admin Empaglifozin 10 mg DAILY PO 02/13/25 10:00 02/19/25 09:08 10 MG Atorvastatin Calcium 10 mg HS PO 02/12/25 22:00 02/19/25 20:57 10 MG Albuterol 2.5 mg Q6HPRN PRN NEB 02/12/25 19:45 Cancel Amlodipine Besylate 2.5 mg DAILY PO 02/13/25 10:00 02/19/25 09:09 2.5 MG Levothyroxine Sodium 88 mcg QAM@0600 PO 02/13/25 06:00 02/19/25 05:34 88 MCG Memantine 10 mg Q12HR PO 02/12/25 22:00 02/19/25 20:57 10 MG Metronidazole 100 ml @ 100 mls/hr Q8HR IV 02/12/25 22:00 02/19/25 13:08 100 MLS/HR Diagnostic Test (Pha) 1 strip ACHS 02/12/25 22:00 02/19/25 16:48 1 STRIP Insulin Human Regular ACHS SC 02/12/25 22:00 02/19/25 16:54 4 UNITS Dextrose 50 ml UD PRN IV 02/12/25 19:45 Acetaminophen/ Hydrocodone Bitart 1 tab Q4HP PRN PO 02/12/25 19:45 02/19/25 16:55 1 TAB Ondansetron HCl 4 mg Q4HP PRN IV 02/12/25 19:45 Acetaminophen 650 mg Q6HP PRN PO 02/12/25 19:45 02/15/25 10:53 650 MG Pantoprazole Sodium 40 mg DAILY IV 02/13/25 10:00 02/19/25 09:07 40 MG Ceftriaxone Sodium 50 ml @ 100 mls/hr DAILY@09 IV 02/15/25 09:00 02/19/25 09:07 100 MLS/HR Melatonin 5 mg HS PRN PO 02/15/25 00:45 02/19/25 20:57 5 MG Saccharomyces Boulardii 250 mg BID PO 02/16/25 22:00 02/19/25 20:58 250 MG Mesalamine 400 mg TID PO 02/17/25 22:00 02/19/25 20:57 400 MG Hydrocortisone Acetate 25 mg Q12HR TN 02/17/25 22:00 02/19/25 20:58 25 MG Lidocaine HCl 5 ml Q8HPRN PRN TOP 02/17/25 17:45 Lorazepam 0.5 mg Q12HP PRN IV 02/19/25 17:00 02/19/25 21:11 0.5 MG objective General Appearance: Alert, Oriented X3, tearful and anxious HEENT: Atraumatic, PERRLA Cardiovascular: Normal S1, Normal S2 Genitourinary: No Apparent Abnormalities Musculoskeletal: Normal sensory function, Normal motor function Rectal exam: Mildly tender no stool impaction no palpable fissure or bleeding or mass laboratory and microbiology Laboratory Tests 02/19/25 13:30 Test 02/19/25 13:30 Range/Units Serum Glucose 251 H 74-106 mg/dL Problems(with codes): (1) Proctitis (2) Abdominal pain (3) Diarrhea (4) Colon polyp (5) Rectal pain Prognosis Plan Patient been started mesalamine and I will give her a 2nd dose of IV Solu-Medrol at 20 mg Continue local hemorrhoidal care Anusol suppositories Patient has also been started on Questran and Imodium as needed I will follow up patient with you Dietary Evaluation Review Comments: When medically feasible advance to a CCHO-60 diet, texture as tolearted Follow GI consult for further assessment. Provide Glucerna PO 240ml as oral supplement BID when diet is advanced. Recomend lipid profile blood test. Expected Outcomes/Goals: gradual wt gain, Improved energy level. Plan discussed with: Patient OPHELIA RODRIGUEZ MD Feb 19, 2025 21:20
[2025-02-20] MEDS: TEMAZEPAM 15 MG CAP PO ONE (01:05)
[2025-02-20 08:00] VITALS: RESP 18; O2SAT 95
[2025-02-20] MEDS ORDERED: DEXTROSE (50%) 50ML SYRG IV PRN (08:30)
[2025-02-20 08:33] VITALS: BP 130/76; PULSE 76; RESP 19; TEMP 98.6; O2SAT 98
--- NOTE | 2025-02-20 10:10 | DVHDS2 ---
Discharge Summary Date of Admission Feb 12, 2025 at 19:38 Date of Discharge: Feb 20, 2025 Admitting Diagnosis Acute abdominal pain. Proctocolitis. Labs/Diagnostic Data: Laboratory Results Test 02/19/25 22:02 02/19/25 13:30 02/18/25 06:17 02/17/25 19:50 POC Glucose 318 mg/dl (70-106) White Blood Count 5.3 10^3/uL (4.4-10.8) Red Blood Count 4.26 10^6/uL (4.0-5.20) Hemoglobin 13.7 g/dL (12.2-16.2) Hematocrit 40.5 % (36.0-46.0) Mean Corpuscular Volume 95.1 fL (80.0-100.0) Mean Corpuscular Hemoglobin 32.1 pg (28.0-32.0) Mean Corpuscular Hemoglobin Concent 33.7 g/dL (32.0-36.0) Red Cell Distribution Width 14.0 % (11.8-14.3) Platelet Count 231 10^3/uL (140-450) Mean Platelet Volume 8.0 fL (6.9-10.8) Neutrophils (%) (Auto) 85.7 % (37.0-80.0) Lymphocytes (%) (Auto) 12.4 % (10.0-50.0) Monocytes (%) (Auto) 1.1 % (0.0-12.0) Eosinophils (%) (Auto) 0.1 % (0.0-7.0) Basophils (%) (Auto) 0.7 % (0.0-2.0) Neutrophils # (Auto) 4.6 10 ^3/uL (1.6-8.6) Lymphocytes # (Auto) 0.7 10 ^3/uL (0.4-5.4) Monocytes # (Auto) 0.1 10 ^3/uL (0-1.3) Eosinophils # (Auto) 0 10 ^3/uL (0-0.8) Basophils # (Auto) 0 10 ^3/uL (0-0.2) Nucleated Red Blood Cells 0.0 % Sodium Level 136 mmol/L (136-145) Potassium Level 4.3 mmol/L (3.5-5.1) Chloride Level 106 mmol/L (98-107) Carbon Dioxide Level 21 mmol/L (20-31) Anion Gap 9 (5-15) Blood Urea Nitrogen 12 mg/dL (9-23) Creatinine 0.84 mg/dL (0.550-1.02) Glomerular Filtration Rate Calc 68 mL/min (>90) BUN/Creatinine Ratio 14.3 (10.0-20.0) Serum Glucose 251 mg/dL (74-106) Calcium Level 9.8 mg/dL (8.7-10.4) Total Bilirubin 0.4 mg/dL (0.2-1.0) Aspartate Amino Transferase (AST) 59 U/L (13-40) Alanine Aminotransferase (ALT) 52 U/L (7-40) Alkaline Phosphatase 54 U/L (46-116) Total Protein 6.1 g/dL (5.7-8.2) Albumin 3.8 g/dL (3.2-4.8) Magnesium Level 2.2 mg/dL (1.6-2.6) Stool for White Cells None seen Test 02/13/25 10:03 02/13/25 10:01 02/12/25 12:05 02/12/25 11:41 Hemoglobin A1c 6.5 % A1C (<5.7) Thyroid Stimulating Hormone (TSH) 17.80 uIU/mL (0.55-4.78) Carcinoembryonic Antigen 2.07 ng/mL (<=5.0) Prothrombin Time 10.3 sec (9.3-11.8) Prothrombin Time INR 0.97 (0.9-1.15) Activated Partial Thromboplast Time 27.6 SEC (24.5-34.5) Stool Occult Blood Negative (Negative) Stool Occult Blood Sample #3 (Negative) Test 02/12/25 11:35 Urine Color Light-yellow (Yellow) Urine Clarity Clear (Clear) Urine pH 5.0 (5.0-9.0) Urine Specific [place] 1.012 (1.001-1.035) Urine Protein Negative (Negative) Urine Ketones Negative (Negative) Urine Blood Negative /uL (Negative) Urine Nitrite Negative (Negative) Urine Bilirubin Negative (Negative) Urine Urobilinogen Normal mg/dL (Negative) Urine Leukocyte Esterase Negative /uL (Negative) Urine RBC <1 /hpf (0 - 4) Urine Microscopic WBC < 1 /HPF (0-5) Urine Squamous Epithelial Cells None seen /hpf (<5) Urine Bacteria None seen /hpf (None Seen) Urine Glucose 4+ mg/dL (Normal) Other Laboratory Tests 02/19/25 13:30 Brief Hx & Hospital Course: History of Present Illness 84-year-old female presents for evaluation of abdominal pain. Patient presents with a two week history of intermittent left lower quadrant abdominal pain. Patient reports that today she noted some blood in her stool so she presented for further evaluation. She also reports unintentional weight loss over the past couple of months. Patient is scheduled to see a wind turbine controls engineer on the of this month for an endoscopy. Course of hospitalization: Patient was seen by Gastroenterology, undergoing colonoscopy. Findings were the following: ENDOSCOPIC IMPRESSION: Small sigmoid colon polyp 4 mm removed by cold biopsy forceps Small descending colon polyp 5 mm removed by cold biopsy forceps Mild proctitis biopsies taken Internal hemorrhoids Patient was continued on IV antibiotic therapy with Levaquin and Flagyl. Patient continued to have abdominal pain, loaded in her pelvic area as well as rectal pain. Patient was started on steroids suppositories as well as IV steroids for internal hemorrhoid pain. Patient had no elevation of white blood cell count. Patient did have mild increase in blood sugars during steroid course. Patient's sugars were controlled with regular insulin sliding scale. On discussion was made with the patient, Gastroenterology as well as patient's son, Baldev. Patient will be discharged home for which she is agreeable to continue antibiotic therapy, as well as steroid course in the form of Medrol Dosepak. Patient will follow up with the discharge Clinic in one week, PCP in 1-2 weeks, and Gastroenterology in three weeks. With respect to her home medications she will continue all previous meds. Physical examination General: Alert and Oriented x3. No acute distress. Well-nourished. Eyes: EOMI. Anicteric. HENT: Moist mucous membranes. Lungs: Clear to auscultation bilaterally. No accessory muscle use. Cardiovascular: Regular rate and rhythm. No murmur. No JVD. Abdomen: Soft, non-tender and non-distended. No palpable masses. Extremities: No edema. Non-tender. Skin: No rashes or lesions. Warm. Neurologic: No focal neurological deficits. CN II-XII grossly intact, but not individually tested. Psychiatric: Cooperative. Appropriate mood and affect. Total time spent with patient discussing and formulating plan of care: 35 minutes. This medical document was created using an electronic medical record system with [employer] dictation system. Although this document has been carefully reviewed, there may still be some phonetic and typographical errors. These areas are purely typographical due to imperfections of the software programs, and do not reflect any compromise in the patient's medical care. Consults/Reason for consult Gastroenterology Operations or Procedures Colonoscopy Condition at Discharge: Fair Final Diagnosis/Problems List Proctocolitis Secondary diagnosis: -proctitis -rule out colon CA -dementia -cachexia -diabetes mellitus -primary hypertension -internal hemorrhoids Discharge Disposition: Home Discharge Instruct/Medications Diet: Consistent carbohydrate Activity: No Restrictions, As Tolerated Follow Up/Referral: DC clinic in 1 week PCP in 1-2 weeks Noe BUI in 3 weeks Medications: Medrol Dose pack Flagyl 500mg po TID x 5 days Continue home medications Scheduled Acetaminophen (Tylenol 8 Hour Arthritis), 650 MG PO TID Alendronate Sodium (Alendronate Sodium), 1 TAB PO QWEEKLY, (Reported) Atorvastatin Calcium (Lipitor), 1 TAB PO QPM, (Reported) Ciclopirox (Ciclopirox Nail Lacquer), 1 APPLIC TOP BID, (Reported) Empagliflozin (Jardiance), 10 MG PO DAILY, (Reported) Fluoxetine HCl (Pmdd) (Fluoxetine HCl), 10 MG PO DAILY, (Reported) Levothyroxine Sodium (Levothyroxine Sodium), 88 MCG PO QAM, (Reported) Memantine Hydrochloride (Memantine HCl), 10 MG PO BID, (Reported) Metformin Hydrochloride (Metformin Hcl), 1 TAB PO BID, (Reported) Zolpidem Tartrate (Zolpidem Tartrate), 1 TAB PO QPM, (Reported) Discontinued Medications Empagliflozin (Jardiance), 25 MG PO, (Reported) Memantine Hydrochloride (Memantine HCl), 10 MG PO, (Reported) 36 Discharge Statement: "Patient was advised to return to the ER or call 911 if any headaches, dizziness, shortness of breath, chest pain, abdominal pain, bleeding, fevers, or worsening of medical condition. Patient was counseled about treatment plan, medications, possible side effects, patientverbalized understanding. All questions were answered to the best of my ability. This discharge took greater then 30 minutes in planning, reviewing documentation, counseling the patient, and discussing with other team members." ASSESSMENT ASSESSMENT Assessment Proctocolitis Date of Service: Feb 20, 2025 Billing Provider: LUIZ MOORE NP Common Visit Codes: 99285-MST/OBS DISCH DAY >30min LUIZ MOORE NP Feb 20, 2025 10:10
[2025-02-20] MEDS ORDERED: METH4PAK PO (10:17)
[2025-02-20] MEDS ORDERED: METR-344 PO (10:17)
[2025-02-20] MEDS: ACCU-CHEK COMFORT CURVE STRIP VI SCH (11:46)
[2025-02-20] MEDS: InsuLIN REG 1unit/0.01ml Soln (100units/ml) SC SCH (11:57)
[2025-02-20 12:36] VITALS: BP 128/60; PULSE 73; RESP 17; TEMP 97.9; O2SAT 96
[2025-02-20 16:37] VITALS: BP 162/83; PULSE 68; RESP 18; TEMP 97.9; O2SAT 100
--- NOTE | 2025-02-20 21:19 | DVHPN2 ---
Progress Note - Dictate Date Seen: Feb 20, 2025 (Late entryPatient seen at bedside at 9:30 a.m.) Has the PT tested + for MRSA If YES, has PT been informed?: No Medical Necessity Reason Pt with a Central, PICC or Fol: No Subjective Diarrhea is improving Patient is getting suppositories for hemorrhoids She got two doses of low-dose steroids Patient has been started on Questran vital signs Vital Sign Date Time Temp Pulse Resp B/P (MAP) Pulse Ox O2 Delivery O2 Flow Rate FiO2 02/20/25 16:37 97.9 68 18 162/83 (109) 100 97.9 02/20/25 08:00 Room Air* 0 21 Total Intake and Output 02/19/25 02/19/25 02/20/25 15:00 23:00 07:00 Intake Total 100 ml 1100 ml 500 ml Balance 100 ml 1100 ml 500 ml medications Current Medications Medications Dose Ordered Sig/Myles Route Start Time Stop Time Status Last Admin Dose Admin Albuterol 2.5 mg Q6HPRN PRN NEB 02/12/25 19:45 Cancel objective General Appearance: Alert, Oriented X3, tearful and anxious HEENT: Atraumatic, PERRLA Cardiovascular: Normal S1, Normal S2 Genitourinary: No Apparent Abnormalities Musculoskeletal: Normal sensory function, Normal motor function Rectal exam: Mildly tender no stool impaction no palpable fissure or bleeding or mass laboratory and microbiology Laboratory Tests 02/19/25 13:30 Test 02/19/25 13:30 Range/Units Serum Glucose 251 H 74-106 mg/dL Problems(with codes): (1) Proctitis (2) Abdominal pain (3) Diarrhea (4) Colon polyp Prognosis Plan Discharge planning is in progress for today Medrol Dosepak Mesalamine 800 mg p.o. three times a day Questran 4 g packet p.o. as needed as needed for diarrhea Outpatient follow up with me in 2-4 weeks to discuss further management Dietary Evaluation Review Comments: When medically feasible advance to a CCHO-60 diet, texture as tolearted Follow GI consult for further assessment. Provide Glucerna PO 240ml as oral supplement BID when diet is advanced. Recomend lipid profile blood test. Expected Outcomes/Goals: gradual wt gain, Improved energy level. Plan discussed with: Other (Sandeep Mishra) OPHELIA RODRIGUEZ MD Feb 20, 2025 21:19
[2025-02-20] MEDS ORDERED: InsuLIN REG 1unit/0.01ml Soln (100units/ml) SC SCH (22:00)
== END 2025-02-20 18:35 | disposition home or self-care (01) | DRG 372 ==
LOC: ER 10:33 → OVERFLOW 19:38 → CENTRAL 19:42
PROVIDERS: ADMIT Nurse Practitioner Acute Care; ATTEND Nurse Practitioner Acute Care
PROC: 0DBN8ZX Excision of Sigmoid Colon, Via Natural or Artificial Opening Endoscopic, Diagnostic (ICD-10-PCS; 2025-02-14)
PROC: 0DBP8ZX Excision of Rectum, Via Natural or Artificial Opening Endoscopic, Diagnostic (ICD-10-PCS; 2025-02-14)
PROC: 0DBM8ZX Excision of Descending Colon, Via Natural or Artificial Opening Endoscopic, Diagnostic (ICD-10-PCS; principal; 2025-02-14 11:12)
DX: A04.9 Bacterial intestinal infection, unspecified (principal); F03.911 Unspecified dementia, unspecified severity, with agitation; K51.30 Ulcerative (chronic) rectosigmoiditis without complications; R64 Cachexia; Z68.1 Body mass index [BMI] 19.9 or less, adult; E11.9 Type 2 diabetes mellitus without complications; I10 Essential (primary) hypertension; E03.9 Hypothyroidism, unspecified; K64.8 Other hemorrhoids; D49.0 Neoplasm of unspecified behavior of digestive system; K63.5 Polyp of colon; K21.9 Gastro-esophageal reflux disease without esophagitis; E78.5 Hyperlipidemia, unspecified; Z86.0100 Personal history of colon polyps, unspecified
CPT/HCPCS: 36415; 71045; 74018; 74177; 76856; 80048; 80053; 81001; 82270; 82378; 82962; 83036; 83615; 83735; 84443; 85025; 85048; 85610; 85730; 86850; 86900; 86901; 87045; 87427; 93005; 96365; 96375; 97110; 97163; G0378; J1815; J2405; J2470; J2704; J3490

== ENCOUNTER 2025-02-26 21:34 | Emergency (ER) | payer MEDICARE, OTHER ==
[~2025-02-26] VITALS: Ht 157.5 cm; Wt 42.7 kg
[~2025-02-26 21:34] MED LIST changes: +ALEN35TA18 PO; +ATOR10TA PO; -CEPH500C PO; +CICL8SOL21 TOP; +EMPA1TAB PO; +FLUO1TAB12 PO; -HYDR-4902 PO; +LEVO88TA4 PO; +MEMA1TAB5 PO; +METF-370 PO; +METH4PAK PO; +METR-344 PO; +ZOLP5TAB5 PO
[2025-02-26 22:36] LABS: Hematocrit 45.1 % (36.0-46.0); Hemoglobin 14.9 g/dL (12.2-16.2); Mean Corpuscular Hemoglobin 31.3 pg (28.0-32.0); Mean Corpuscular Volume 94.5 fL (80.0-100.0); Nucleated Red Blood Cells % 0.0 %
--- NOTE | 2025-02-26 22:38 | ED.PDOC ---
GI ASSESSMENT HPI Comments 84 year old female presents to the ED with a chief complaint of abdominal pain onset today (02/26/25). Relative states patient began experiencing abdominal pain with cramping sensation, suprapubic region earlier today, as well as nausea. Patient was discharged from [facility] on 02/20/25, was admitted for abdominal pain. Pain was resolved when discharged, returned today. Relative also states patient has been experiencing generalized weakness, decreased appetite since being discharged. PMHx HLD, DM, HTN, dementia, thyroid disease. Denies fevers, chills, vomiting, diarrhea, cough, chest pain, shortness of breath, dysuria, hematuria, back pain, headache, dizziness. No other symptoms or modifying factors present at this time. Time Seen by MD: 22:10 Primary Care Provider: Dr. Valdes Reviewed Notes: Medications, Allergies Allergies: Coded Allergies: NO KNOWN ALLERGIES (Unverified , 04/10/24) Home Meds Active Scripts Polyethylene Glycol 3350 (Miralax) 17 Gm Pow, 17 GM PO DAILY for 5 Days, #5 POW Prov:ANTONY LOBATO MD 02/27/25 Acetaminophen (Acetaminophen Er) 650 Mg Tab, 650 MG PO TIDPRN PRN for 5 Days, #15 TAB Prov:ANTONY LOBATO MD 02/27/25 Methylprednisolone (Medrol Dosepak) 4 Mg Farhan, 4 MG PO UD, #21 TAB UAD Prov:LUIZ MOORE NP 02/20/25 Metronidazole (Flagyl) 500 Mg Tab, 1 TAB PO TID for 5 Days, #15 TAB Prov:LUIZ MOORE NP 02/20/25 Acetaminophen (Tylenol 8 Hour Arthritis) 650 Mg Tab, 650 MG PO TID, #30 TAB Prov:HARSH GRACE 06/29/24 Reported Medications Fluoxetine HCl (Pmdd) (Fluoxetine HCl) 10 Mg Tab, 10 MG PO DAILY, TAB 02/17/25 Levothyroxine Sodium (Levothyroxine Sodium) 88 Mcg Tab, 88 MCG PO QAM for 30 Days, MCG 02/17/25 Empagliflozin (Jardiance) 10 Mg Tab, 10 MG PO DAILY, TAB 02/17/25 Memantine Hydrochloride (Memantine HCl) 10 Mg Tab, 10 MG PO BID, TAB 02/17/25 Metformin Hydrochloride (Metformin Hcl) 500 Mg Tab, 1 TAB PO BID, #60 TAB 3 Refills 02/12/25 Atorvastatin Calcium (Lipitor) 10 Mg Tab, 1 TAB PO QPM, #90 TAB 1 Refill 02/12/25 Zolpidem Tartrate (Zolpidem Tartrate) 5 Mg Tab, 1 TAB PO QPM, #30 TAB 2 Refills 02/12/25 Ciclopirox (Ciclopirox Nail Lacquer) 8 % [place], 1 APPLIC TOP BID, #6.6 ML 6 Refills 02/12/25 Alendronate Sodium (Alendronate Sodium) 35 Mg Tab, 1 TAB PO QWEEKLY, #4 TAB 11 Refills 02/12/25 Information Source: Patient, Relative Mode of Arrival: Wheelchair Timing: Hours Duration: Since onset Prehospital treatment: None Quality: Sharp Vomitus: None Severity: Moderate Recent: None Recent Hx of: None Pain Location: Suprapubic Associated sign and symptoms: Abdominal Pain Vital Signs Vital Signs Date Time Temp Pulse Resp B/P (MAP) Pulse Ox O2 Delivery O2 Flow Rate FiO2 02/26/25 22:56 98.0 69 16 146/72 (96) 96 98.0 Physical Exam PHYSICAL EXAM: General: Awake, alert and oriented. No acute distress. Skin: Skin in warm, dry and intact. Appropriate color for ethnicity. HEENT: The head is normocephalic and atraumatic. Conjunctivae are clear without exudates or hemorrhage. Sclera is non-icteric. EOM are intact. No signs of nystagmus. Eyelids are normal in appearance without swelling or lesions. Oral mucosa is pink and moist Neck: The neck is supple with normal range of motion. No JVD. Cardiac: Heart rate and rhythm are normal. No murmurs, gallops, or rubs are auscultated. Respiratory: No signs of respiratory distress. Lung sounds are clear in all lobes bilaterally without rales, rhonchi, or wheezes. Abdominal: Abdomen is soft, suprapubic tenderness with distention. No guarding or rigidity. Bowel sounds are present and normoactive in all four quadrants. Extremities: Upper and lower extremities are atraumatic in appearance without deformity or edema. Neurological: The patient is awake, alert and oriented to person, place, moving all extremities spontaneously. Review of Systems: REVIEW OF SYSTEMS: General: No fever, no chills, positive fatigue HEENT: No sore throat, no earache, no congestion, no neck pain. Cardiac: No chest pain. No palpitations. Lungs: No shortness of breath, no cough. GI: No nausea, no vomiting, no diarrhea, no constipation, positive abdominal pain, decreased appetite : No dysuria, frequency, or urgency. No hematuria. Musculoskeletal: No joint pain , no joint swelling, no extremity edema. Skin: No rash, no itching. Neuro: No headache, no dizziness, positive generalized weakness Past Medical History PAST MEDICAL HISTORY: Dementia, DM, High Lipids, HTN, Thyroid Surgical History: Denies all surgeries IT SUPPORT TECHNICIAN History: No Pertinent IT SUPPORT TECHNICIAN History Family History Family History: Reviewed,noncontributory to illness, No family hx of Cancer, No family hx of DM, No family hx of Heart balwinder, No family hx of HTN, No family hx ofKidney balwinder, No family hx of Liver balwinder, No family hx of Lung balwinder, No family hx of Stroke Social History Smoker: Non-Smoker Alcohol: Denies ETOH Use Drugs: Denies Drug Use Lives In: Home Was a procedure done? Was a procedure done?: No GI differential Dx Differential Diagnosis: Other (Differential diagnoses considered include: Abdominal aortic aneurysm, VA, esophageal rupture, intestinal obstruction, mesenteric ischemia, perforated viscus or solid organ rupture, CHF with hepatomegaly, pneumonia, abscess, appendicitis, biliary disease, diverticulitis, gastritis, gastroenteritis, hepatitis, hernia, inflammatory bowel disease, pancreatitis, peptic ulcer disease, urinary tract infection, ureteral colic, constipation, GERD, irritable syndrome, abdominal wall pain, nonspecific abdominal pain, herpes zoster, nephrolithiasis.) X-Ray, Labs, Meds, VS Vital Signs Date Time Temp Pulse Resp B/P (MAP) Pulse Ox O2 Delivery O2 Flow Rate FiO2 02/26/25 22:56 98.0 69 16 146/72 (96) 96 98.0 Lab Test 02/26/25 23:00 02/26/25 22:15 Range/Units Urine Color Light-yellow Yellow Urine Clarity Clear Clear Urine pH 5.0 5.0-9.0 Urine Specific [place] 1.012 1.001-1.035 Urine Protein Negative Negative Urine Ketones Trace Negative Urine Blood Negative Negative /uL Urine Nitrite Negative Negative Urine Bilirubin Negative Negative Urine Urobilinogen Normal Negative mg/dL Urine Leukocyte Esterase Negative Negative /uL Urine RBC None seen 0 - 4 /hpf Urine Microscopic WBC < 1 0-5 /HPF Urine Squamous Epithelial Cells Few <5 /hpf Urine Bacteria None seen None Seen /hpf Urine Glucose 4+ H Normal mg/dL White Blood Count 6.7 4.4-10.8 10^3/uL Red Blood Count 4.77 4.0-5.20 10^6/uL Hemoglobin 14.9 12.2-16.2 g/dL Hematocrit 45.1 36.0-46.0 % Mean Corpuscular Volume 94.5 80.0-100.0 fL Mean Corpuscular Hemoglobin 31.3 28.0-32.0 pg Mean Corpuscular Hemoglobin Concent 33.1 32.0-36.0 g/dL Red Cell Distribution Width 14.0 11.8-14.3 % Platelet Count 318 140-450 10^3/uL Mean Platelet Volume 7.5 6.9-10.8 fL Neutrophils (%) (Auto) 63.4 37.0-80.0 % Lymphocytes (%) (Auto) 26.4 10.0-50.0 % Monocytes (%) (Auto) 9.3 0.0-12.0 % Eosinophils (%) (Auto) 0.4 0.0-7.0 % Basophils (%) (Auto) 0.5 0.0-2.0 % Neutrophils # (Auto) 4.2 1.6-8.6 10 ^3/uL Lymphocytes # (Auto) 1.8 0.4-5.4 10 ^3/uL Monocytes # (Auto) 0.6 0-1.3 10 ^3/uL Eosinophils # (Auto) 0 0-0.8 10 ^3/uL Basophils # (Auto) 0 0-0.2 10 ^3/uL Nucleated Red Blood Cells 0.0 % Sodium Level 137 136-145 mmol/L Potassium Level 4.5 3.5-5.1 mmol/L Chloride Level 102 98-107 mmol/L Carbon Dioxide Level 28 20-31 mmol/L Anion Gap 7 5-15 Blood Urea Nitrogen 16 9-23 mg/dL Creatinine 0.77 0.550-1.02 mg/dL Glomerular Filtration Rate Calc 76 >90 mL/min BUN/Creatinine Ratio 20.8 H 10.0-20.0 Serum Glucose 144 H 74-106 mg/dL Calcium Level 10.1 8.7-10.4 mg/dL [facility] [id number] [place] [id number] Ph: [phone] DIAGNOSTIC IMAGING Diagnostic Imaging Report : [id number] Signed PATIENT: HAILEE MEJIA ACCT: [id number] UNIT: [id number] : 1940 LOC: ER ROOM / BED: / AGE / SEX: 84 / F ADM STATUS: REG ER SERVICE 56 ORDERING PHYSICIAN: ANTONY LOBATO MD PROCEDURE(s): ABPLIV - CT AB PEL WITH IV CON ONLY REASON: abdominal pain ORDER NUMBER(s): [id number], ACCESSION NUMBER(s): [id number] Exam: CT CT AB PEL WITH IV CON ONLY History: abdominal pain COMPARISON: CT CT AB PEL WITH IV CON ONLY on DOS: 02/12/25 Technique: Multidetector spiral CT of the abdomen and pelvis was performed from lung bases to pubic symphysis. Intravenous contrast was administered during this examination. Portal venous imaging was obtained. Axial, coronal and sagittal multiplanar reformats were performed by the technologist on a separate workstation. Radiation Dose : 1. Abdomen/Pelvis: CTDIvol 5.07 mGy, DLP 269.85 mGy*cm. CONTRAST: Type of contrast: Omniscan 300 Contrast injected: 100 ml Findings: Lung Bases: No acute or significant lung base finding. Moderate right hemidiaphragmatic elevation and right lateral lung base atelectasis. Normal heart size. No pleural or pericardial effusion. Liver: The liver is normal in size. No focal lesions. Normal hepatic vascular enhancement. Gallbladder and Biliary Tree: Status post cholecystectomy. The common bile duct is prominent, measuring 9 mm at the level of the pancreatic head. Spleen: Unremarkable Pancreas: The pancreas is normal in appearance without focal lesions or abnormal enhancement. Adrenal Glands: Unremarkable Kidneys: No hydronephrosis. Bladder: Unremarkable Bowel: The stomach is grossly normal in appearance. Retained stool throughout the colon. Small bowel and colon are otherwise normal in caliber and distribution. The appendix is not visualized; however, no secondary findings of acute appendicitis identified. Ascites: Absent Lymphadenopathy: No mesenteric, retroperitoneal or periportal lymphadenopathy. Abdominal Wall and Mesentery: Unremarkable. Vasculature: The visualized abdominal aorta is moderately tortuous and otherwise normal in size and caliber. Atherosclerotic vascular calcifications. Abdominal and pelvic vessels demonstrate normal enhancement. Pelvic Organs: Unremarkable Musculoskeletal: No aggressive focal bony lesions, acute fractures or dislocation. IMPRESSION: 1. No acute abdominal or pelvic finding. 2. Retained colonic stool. Radiation optimization: All CT scans at this facility use at least one of these dose optimization techniques: automated exposure control mA and/or kV adjustment per patient size (includes targeted exams where dose is matched to clinical indication) or iterative reconstruction. ATED BY: CARLOS SCRUGGS MD DICTATED DATE/TIME: 02/27/25199 SIGNED BY: CARLOS SCRUGGS MD SIGNED DATE/TIME: 02/27/25199 CC: Time of 1ST Reevaluation: 22:40 Reevaluation 1ST: Unchanged Patient Education/Counseling: Need For Follow Up Family Education/Counseling: Need For Follow Up SEPSIS Sepsis Screen Physician Orders Saline Lock (02/26/25 21:57) Ct Ab Pel With Iv Con Only (02/26/25 21:57) Vital Signs Date Time Temp Pulse Resp B/P (MAP) Pulse Ox O2 Delivery O2 Flow Rate FiO2 02/26/25 22:56 98.0 69 16 146/72 (96) 96 98.0 Laboratory Tests Test 02/26/25 22:15 White Blood Count 6.7 10^3/uL (4.4-10.8) Departure 1 Departure Time of Disposition: 02:40 Impression: Primary Impression: Generalized weakness Additional Impression: Constipation Disposition: 01 HOME / SELF CARE / HOMELESS Condition: Stable Additional Instructions: ED DISCHARGE INSTRUCTIONS Instructions: Please read all instructions provided in this packet carefully. Although you have been discharged from the Emergency Department, this does not mean that you have a "clean bill of health". No definitive diagnosis for your symptoms has been made today. It is possible that you are in the process of developing a serious illness. This is why you must return to the ED without fail if any new or worsening symptoms (especially if your symptoms include chest pain, trouble breathing, abdominal pain, fever, headache, confusion, trouble seeing, or trouble walking) It is also very important that you see a primary care provider (PCP) within the next 1-3 days to follow up. If you are unable to get an appointment, return to the ED for re-evaluation. e-Prescriptions Polyethylene Glycol 3350 (Miralax) 17 Gm Pow 17 GM PO DAILY for 5 Days, #5 POW Prov: ANTONY LOBATO MD 02/27/25 Acetaminophen (Acetaminophen Er) 650 Mg Tab 650 MG PO TIDPRN PRN for 5 Days, #15 TAB Prov: ANTONY LOBATO MD 02/27/25 Comments MDM: 84-year-old female presents with generalized weakness, decreased appetite, abdominal pain. Patient had recent admission for abdominal pain, workup showed internal hemorrhoids, has post colonoscopy. Patient continued to have symptoms at home. Lab and imaging studies not urgently actionable. Large stool burden on CT noted. We will discharge with stool softener, pain medication. Vital signs stable. Patient felt stable for discharge home to follow up with [facility] primary care provider. Advised to return to the ED with any new, worsening or concerning symptoms. Extensive evaluation was performed in attempt to identify or rule out: (See differential diagnosis section) The following tests were ordered, and results were reviewed by me and discussed with patient: (See diagnostic results section) The following test were independently interpreted by me: N/A I reviewed and agreed with the following test results read by other providers: N/A I reviewed the following notes from the pt's past medical encounters: Most recent admission Additional information was gathered from interviewing the following independent historians: Patient's family member at bedside Discussion of management or test interpretation with external physician/other qualified health personal carer: N/A Decision regarding hospitalization or escalation of hospital level of care: Risks and benefits of admission for further treatment of patient's condition was considered however due to patient's stable condition patient will be discharged to follow up closely or return to care for worsening of condition or inability to follow up. Critical Care Note Critical Care Time?: No Stability Stability form required: No I personally scribed for ANTONY LOBATO MD ([email or web address]) on 02/26/25 at 22:38. Electronically submitted by Jes Shaw ([email or web address]). I personally scribed for ANTONY LOBATO MD ([email or web address]) on 02/27/25 at 02:23. Electronically submitted by Jes Shaw ([email or web address]). ANTONY LOBATO MD Feb 26, 2025 22:38
[2025-02-26 22:46] LABS: Chloride 102 mmol/L (98-107); Potassium 4.5 mmol/L (3.5-5.1); Sodium 137 mmol/L (136-145)
[2025-02-26 22:47] LABS: Anion Gap 7 (5-15); Calcium 10.1 mg/dL (8.7-10.4); Carbon Dioxide 28 mmol/L (20-31)
[2025-02-26 22:52] LABS: BUN/Creatinine Ratio 20.8 (10.0-20.0); Blood Urea Nitrogen 16 mg/dL (9-23)
[2025-02-26 22:54] LABS: Glucose 144 mg/dL (74-106)
[2025-02-26 22:56] VITALS: BP 146/72; PULSE 69; RESP 16; TEMP 98; O2SAT 96
[2025-02-26 23:29] LABS: Urine Protein, UAD Negative (Negative)
--- NOTE | 2025-02-27 02:02 | DVH ---
Exam: CT CT AB PEL WITH IV CON ONLY History: abdominal pain COMPARISON: CT CT AB PEL WITH IV CON ONLY on DOS: 02/12/25 Technique: Multidetector spiral CT of the abdomen and pelvis was performed from lung bases to pubic s ymphysis. Intravenous contrast was administered during this examination. Portal venous imaging was o btained. Axial, coronal and sagittal multiplanar reformats were performed by the technologist on a [email or web address] workstation. Radiation Dose : 1. Abdomen/Pelvis: CTDIvol 5.07 mGy, DLP 269.85 mGy*cm. CONTRAST: Type of contrast: Omniscan 300 Contrast injected: 100 ml Findings: Lung Bases: No acute or significant lung base finding. Moderate right hemidiaphragmatic elevation and right lateral lung base atelectasis. Normal heart size. No pleural or pericardial effusion. Liver: The liver is normal in size. No focal lesions. Normal hepatic vascular enhancement. Gallbladder and Biliary Tree: Status post cholecystectomy. The common bile duct is prominent, measuri ng 9 mm at the level of the pancreatic head. Spleen: Unremarkable Pancreas: The pancreas is normal in appearance without focal lesions or abnormal enhancement. Adrenal Glands: Unremarkable Kidneys: No hydronephrosis. Bladder: Unremarkable Bowel: The stomach is grossly normal in appearance. Retained stool throughout the colon. Small bowel and colon are otherwise normal in caliber and distribution. The appendix is not visualized; however, no secondary findings of acute appendicitis identified. Ascites: Absent Lymphadenopathy: No mesenteric, retroperitoneal or periportal lymphadenopathy. Abdominal Wall and Mesentery: Unremarkable. Vasculature: The visualized abdominal aorta is moderately tortuous and otherwise normal in size and c aliber. Atherosclerotic vascular calcifications. Abdominal and pelvic vessels demonstrate normal enha ncement. Pelvic Organs: Unremarkable Musculoskeletal: No aggressive focal bony lesions, acute fractures or dislocation. IMPRESSION: 1. No acute abdominal or pelvic finding. 2. Retained colonic stool. Radiation optimization: All CT scans at this facility use at least one of these dose optimization nisha hniques: automated exposure control mA and/or kV adjustment per patient size (includes targeted exam s where dose is matched to clinical indication) or iterative reconstruction.
[2025-02-27] MEDS: IOHEXOL 300 MG/ML 100ML BOTTLE IJ ONE (02:31)
[2025-02-27] MEDS ORDERED: POLY335015 PO (02:41)
[2025-02-27] MEDS ORDERED: ACET650T12 PO (02:41)
[2025-02-27] MEDS: ACETAMINOPHEN 500 MG TAB or CAP PO ONE (02:54)
== END 2025-02-27 02:55 | disposition home or self-care (01) ==
LOC: ER 21:34
DX: K59.00 Constipation, unspecified (principal); R53.1 Weakness; E11.9 Type 2 diabetes mellitus without complications; E78.5 Hyperlipidemia, unspecified; I10 Essential (primary) hypertension; F03.90 Unspecified dementia, unspecified severity, without behavioral disturbance, psychotic disturbance, mood disturbance, and anxiety; Z79.890 Hormone replacement therapy; Z79.84 Long term (current) use of oral hypoglycemic drugs; Z79.899 Other long term (current) drug therapy
CPT/HCPCS: 36415; 74177; 80048; 81001; 85025; 99285; Q9967

== ENCOUNTER 2025-02-28 21:28 | Inpatient (IN) | payer MEDICARE, OTHER ==
[~2025-02-28] VITALS: Ht 157.5 cm; Wt 46.7 kg
[2025-02-28] MEDS: SODIUM CHLORIDE 0.9% 500 ML IV ONE (00:30)
[2025-02-28] MEDS: ONDANSETRON HCL 4 MG/2 ML VIAL IV ONE (00:30)
[~2025-02-28 21:28] MED LIST changes: +ACET650T12 PO; +POLY335015 PO
[2025-02-28 22:03] LABS: Hematocrit 43.8 % (36.0-46.0); Hemoglobin 14.6 g/dL (12.2-16.2); Mean Corpuscular Hemoglobin 31.8 pg (28.0-32.0); Mean Corpuscular Volume 95.4 fL (80.0-100.0); Nucleated Red Blood Cells % 0.0 %
--- NOTE | 2025-02-28 22:11 | ED.PDOC ---
HPI Comments 84 year old female with a Hx of HTN, DM, High Lipids, and Dementia was BIB Son for the c/c of Chest, and Abdominal discomfort w/ associated N/V/D. Son states that pt was admitted here for 9x days, and had a colonoscopy preformed on the 14 of February, where she had 2 polyps, and a Hemorid removed. Pt now states that pts HR dropped to the 40's approx 3x hours prompting this visit to the ED. Pt HR was noted to be 72 upon triage assessment. Pt does note that she is having Chest Discomfort at this time, and wishes to stay at the hospital. No other associated symptoms, modifiers, recent injuries or sick contacts present at this time. Chief Complaint: Chest Pain Time Seen by MD: 22:05 Primary Care Provider: Dr. Valdes Reviewed Notes: Nurses Notes, Medications, Allergies Allergies: Coded Allergies: NO KNOWN ALLERGIES (Unverified , 04/10/24) Home Meds Active Scripts Polyethylene Glycol 3350 (Miralax) 17 Gm Pow, 17 GM PO DAILY for 5 Days, #5 POW Prov:ANTONY LOBATO MD 02/27/25 Acetaminophen (Acetaminophen Er) 650 Mg Tab, 650 MG PO TIDPRN PRN for 5 Days, #15 TAB Prov:ANTONY LOBATO MD 02/27/25 Methylprednisolone (Medrol Dosepak) 4 Mg Farhan, 4 MG PO UD, #21 TAB UAD Prov:LUIZ MOORE NP 02/20/25 Metronidazole (Flagyl) 500 Mg Tab, 1 TAB PO TID for 5 Days, #15 TAB Prov:LUIZ MOORE NP 25 Acetaminophen (Tylenol 8 Hour Arthritis) 650 Mg Tab, 650 MG PO TID, #30 TAB Prov:HARSH GRACE 06/29/24 Reported Medications Fluoxetine HCl (Pmdd) (Fluoxetine HCl) 10 Mg Tab, 10 MG PO DAILY, TAB 02/17/25 Levothyroxine Sodium (Levothyroxine Sodium) 88 Mcg Tab, 88 MCG PO QAM for 30 Days, MCG 02/17/25 Empagliflozin (Jardiance) 10 Mg Tab, 10 MG PO DAILY, TAB 02/17/25 Memantine Hydrochloride (Memantine HCl) 10 Mg Tab, 10 MG PO BID, TAB 02/17/25 Metformin Hydrochloride (Metformin Hcl) 500 Mg Tab, 1 TAB PO BID, #60 TAB 3 Refills 02/12/25 Atorvastatin Calcium (Lipitor) 10 Mg Tab, 1 TAB PO QPM, #90 TAB 1 Refill 02/12/25 Zolpidem Tartrate (Zolpidem Tartrate) 5 Mg Tab, 1 TAB PO QPM, #30 TAB 2 Refills 02/12/25 Ciclopirox (Ciclopirox Nail Lacquer) 8 % [place], 1 APPLIC TOP BID, #6.6 ML 6 Refills 02/12/25 Alendronate Sodium (Alendronate Sodium) 35 Mg Tab, 1 TAB PO QWEEKLY, #4 TAB 11 Refills 02/12/25 Information Source: Patient, Relative (Child) Mode of Arrival: Wheelchair Severity: Moderate Timing: Hours Duration: Since onset, Hours Prehospital treatment: None Location: Chest (L), Substernal Radiation: Abdomen Quality: Pressure Onset: At Rest Cardiac Risk Factors: HTN PE Risk Factors: None History of: None Modifying Factors: Movement Associated Signs and Symptoms: None Past Medical History PAST MEDICAL HISTORY: Dementia, DM, High Lipids, HTN, Thyroid Surgical History: Denies all surgeries POLYGRAPH TECHNICIAN History: No Pertinent POLYGRAPH TECHNICIAN History Family History Family History: Reviewed,noncontributory to illness, No family hx of Cancer, No family hx of DM, No family hx of Heart balwinder, No family hx of HTN, No family hx ofKidney balwinder, No family hx of Liver balwinder, No family hx of Lung balwinder, No family hx of Stroke Social History Smoker: Non-Smoker Alcohol: Denies ETOH Use Drugs: Denies Drug Use Lives In: Home Constitutional: denies: chills, diaphoresis, fatigue, fever, malaise, sweats, weakness, others EENTM: denies: blurred vision, double vision, ear bleeding, ear discharge, ear drainage, ear pain, ear ringing, eye pain, eye redness, hearing loss, mouth pain, mouth swelling, nasal discharge, nose bleeding, nose congestion, nose pain, photophobia, tearing, throat pain, throat swelling, voice changes, others Respiratory: denies: cough, hemoptysis, orthopnea, SOB at rest, shortness of breath, SOB with excertion, stridor, wheezing, others Cardiovascular: reports: chest pain; denies: dizzy spells, diaphoresis, Dyspnea on exertion, edema, irregular heart beat, left arm pain, lightheadedness, palpitations, PND, syncope, others Gastrointestinal: reports: abdominal pain, diarrhea, nausea, vomiting; denies: abdomen distended, blood streaked bowels, constipated, dysphagia, difficulty swallowing, hematemesis, melena, poor appetite, poor fluid intake, rectal bleeding, rectal pain, others Genitourinary: denies: abnormal vagina bleeding, burning, dyspareunia, dysuria, flank pain, frequency, hematuria, incontinence, pain, , vagina discharge, urgency, others Neurological: denies: dizziness, fainting, headache, left sided numbness, left sided weakness, numbness, paresthesia, pre-existing deficit, right sided numbness, right sided weakness, seizure, speech problems, tingling, tremors, weakness, others Musculoskeletal: denies: back pain, gout, joint pain, joint swelling, muscle pain, muscle stiffness, neck pain, others Integumetry: denies: bruises, change in color, change in hair/nails, dryness, laceration, lesions, lumps, rash, wounds, others Allergic/Immunocompromised: denies: Difficulty Healing, Frequent Infections, Hives, Itching, others Hematologic/Lymphatic: denies: anemia, blood clots, easy bleeding, easy bruising, swollen glands, others Endocrine: denies: excessive hunger, excessive sweating, excessive thirst, excessive urination, flushing, intolerance to cold, intolerance to heat, unexplained weight gain, unexplained weight loss, others Psychiatric: denies: anxiety, bipolar disorder, depression, hopeless, panic disorder, schizophrenia, sleepless, suicidal, others All Other Systems: Reviewed and Negative Physical Exam General Appearance: Mild Distress, Normal, Thin, Other (Pale appearing) HEENT: Normal ENT Inspection, Pharynx Normal, TMs Normal Neck: Full Range of Motion, Non-Tender, Normal, Normal Inspection Respiratory: Chest Non-Tender, Lungs Clear, No Accessory Muscle Use, No Respiratory Distress, Normal Breath Sounds Cardiovascular: No Edema, No JVD, No Murmur, No Gallop, Normal Peripheral Pulses, Regular Rate/Rhythm Breast Exam: Deferred Gastrointestinal: Non Tender, No Pulsatile Mass, Normal Bowel Sounds, Soft Genitalia: Deferred Pelvic: Deferred Rectal: Deferred Extremities: No calf tenderness, Normal capillary refill, Normal inspection, Normal range of motion, Non-tender, No pedal edema Musculoskeletal : Apperance: Normal Neurologic: Alert, No Motor Deficits, Normal Affect, Normal Mood, No Sensory Deficits Cerebellar Function: Normal Reflexes: Normal Skin: Dry, Normal Color, Warm Lymphatic: No Adenopathy Was a procedure done? Was a procedure done?: No CP Differential Dx Differential Diagnosis: Angina, Anxiety / Panic Attack, Electrolyte Disorder, Heart Failure, Pulmonary Embolus, Renal Failure Differential Diagnosis: CHF, HTN Essential Differential Diagnosis: Angina, Chest Wall Pain, Cholelithiasis, Costochondritis, Gastritis, Pericarditis, Pneumonia, Pneumothorax, Pulmonary Embolus X-Ray, Labs, Meds, VS Vital Signs Date Time Temp Pulse Resp B/P (MAP) Pulse Ox O2 Delivery O2 Flow Rate FiO2 02/28/25 23:00 71 02/28/25 22:02 98.0 80 22 143/70 (94) 97 98.0 02/28/25 21:54 72 Lab Test 02/28/25 22:54 02/28/25 21:55 02/28/25 21:43 Range/Units Troponin I High Sensitivity 9 12 </=34 ng/L Urine Color Light-yellow Yellow Urine Clarity Clear Clear Urine pH 5.0 5.0-9.0 Urine Specific [place] 1.031 1.001-1.035 Urine Protein Trace H Negative Urine Ketones Negative Negative Urine Blood Negative Negative /uL Urine Nitrite Negative Negative Urine Bilirubin Negative Negative Urine Urobilinogen Normal Negative mg/dL Urine Leukocyte Esterase Negative Negative /uL Urine RBC None seen 0 - 4 /hpf Urine Microscopic WBC 1 0-5 /HPF Urine Squamous Epithelial Cells None seen <5 /hpf Urine Bacteria None seen None Seen /hpf Urine Yeast (Budding) Occasional None Seen /hpf Urine Glucose 4+ H Normal mg/dL White Blood Count 13.0 #H 4.4-10.8 10^3/uL Red Blood Count 4.59 4.0-5.20 10^6/uL Hemoglobin 14.6 12.2-16.2 g/dL Hematocrit 43.8 36.0-46.0 % Mean Corpuscular Volume 95.4 80.0-100.0 fL Mean Corpuscular Hemoglobin 31.8 28.0-32.0 pg Mean Corpuscular Hemoglobin Concent 33.4 32.0-36.0 g/dL Red Cell Distribution Width 14.0 11.8-14.3 % Platelet Count 304 140-450 10^3/uL Mean Platelet Volume 7.7 6.9-10.8 fL Neutrophils (%) (Auto) 83.1 H 37.0-80.0 % Lymphocytes (%) (Auto) 12.2 10.0-50.0 % Monocytes (%) (Auto) 4.0 0.0-12.0 % Eosinophils (%) (Auto) 0.2 0.0-7.0 % Basophils (%) (Auto) 0.5 0.0-2.0 % Neutrophils # (Auto) 10.8 H 1.6-8.6 10 ^3/uL Lymphocytes # (Auto) 1.6 0.4-5.4 10 ^3/uL Monocytes # (Auto) 0.5 0-1.3 10 ^3/uL Eosinophils # (Auto) 0 0-0.8 10 ^3/uL Basophils # (Auto) 0.1 0-0.2 10 ^3/uL Nucleated Red Blood Cells 0.0 % Prothrombin Time 10.4 9.3-11.8 sec Prothrombin Time INR 0.98 0.9-1.15 Activated Partial Thromboplast Time 24.2 L 24.5-34.5 SEC Sodium Level 139 136-145 mmol/L Potassium Level 3.6 3.5-5.1 mmol/L Chloride Level 107 98-107 mmol/L Carbon Dioxide Level 22 20-31 mmol/L Anion Gap 10 5-15 Blood Urea Nitrogen 13 9-23 mg/dL Creatinine 0.76 0.550-1.02 mg/dL Glomerular Filtration Rate Calc 77 >90 mL/min BUN/Creatinine Ratio 17.1 10.0-20.0 Serum Glucose 158 H 74-106 mg/dL Calcium Level 9.9 8.7-10.4 mg/dL B-Type Natriuretic Peptide 21.09 0-100 pg/mL Time of 1ST Reevaluation: 22:36 Reevaluation 1ST: Unchanged Patient Education/Counseling: Diagnosis, Treatment, Need For Follow Up Family Education/Counseling: Diagnosis, Treatment, Need For Follow Up SEPSIS Sepsis Screen Physician Orders Troponin-I Hs (03/01/25 00:35) Electrocardigram (02/28/25 22:35) Electrocardigram (03/01/25 00:35) Chest Portable (02/28/25 21:40) Vital Signs Date Time Temp Pulse Resp B/P (MAP) Pulse Ox O2 Delivery O2 Flow Rate FiO2 02/28/25 23:00 71 02/28/25 22:02 98.0 80 22 143/70 (94) 97 98.0 02/28/25 21:54 72 Laboratory Tests Test 02/28/25 21:43 White Blood Count 13.0 10^3/uL (4.4-10.8) #H Departure 1 Departure Time of Disposition: 23:42 Impression: Primary Impression: Generalized weakness Additional Impressions: Vomiting and diarrhea Intermediate coronary syndrome Symptomatic bradycardia Disposition: ADMITTED INPATIENT Admit to: Tele Condition: Guarded Discharged With: Self, Relative Comments Symptomatic Bradycardia with Vomiting and Diarrhea Chief Complaint: Vomiting, diarrhea, generalized weakness, and bradycardia with near-syncope. History of Present Illness: The patient is an 84-year-old female with a history of hypertension, type 2 d iabetes mellitus, and dementia who was brought to the Emergency Department by her son. The son reports that the patient has been experiencing vomiting and diarrhea at home, accompanied by complaints of generalized weakness and malaise. According to the son, the patient's heart rate dropped to the 40s, and she nearly lost consciousness. The patient's son became concerned about these symptoms and brought her to the ED for evaluation. The duration and frequency of the vomiting and diarrhea are not specified. There is no reported fever, abdominal pain, chest pain, or shortness of breath mentioned in the maintenance worker [employer]. Review of Systems: Constitutional: Positive for generalized weakness and malaise. Cardiovascular: Positive for bradycardia with heart rate in the 40s and near- syncope. Gastrointestinal: Positive for vomiting and diarrhea. Negative for abdominal pain. All other systems: Not specifically addressed in the maintenance worker [employer]. Medications: Not specifically mentioned in the maintenance worker [employer]. Patient likely on medications for hypertension, diabetes, and dementia, but specific agents not detailed. Allergies: No known allergies mentioned in the maintenance worker [employer]. Past Medical History: 1. Hypertension 2. Type 2 Diabetes Mellitus 3. Dementia Lab Results: WBC: Elevated at 13,000/?L Glucose: 158 mg/dL BUN: 13 mg/dL (normal) Creatinine: 0.76 mg/dL (normal) Troponin: 12 ng/L (normal) BNP: 21 pg/mL (normal) Chemistry panel: Otherwise unremarkable Imaging and Other Relevant Results: Chest X-ray: No acute pathology identified. Medical Decision Making: Summary Statement: 84-year-old female with history of hypertension, diabetes, and dementia presenting with vomiting, diarrhea, generalized weakness, and symptomatic bradycardia with near-syncope. Labs show leukocytosis and mild hyperglycemia. Problem List: 1. Symptomatic bradycardia with near-syncope 2. Vomiting and diarrhea with possible gastroenteritis 3. Leukocytosis 4. Hyperglycemia 5. Intermediate coronary syndrome 6. Chronic hypertension 7. Type 2 diabetes mellitus 8. Dementia Differential Diagnosis: 1. Gastroenteritis (viral vs. bacterial) 2. Medication effect causing bradycardia 3. Sick sinus syndrome 4. Electrolyte abnormality 5. Dehydration 6. Acute coronary syndrome 7. Sepsis 8. Diabetic gastroparesis ED Course: Patient received IV fluid resuscitation and ondansetron (Zofran) for nausea. Laboratory studies and chest X-ray were obtained. Given the patient's age, comorbidities, symptomatic bradycardia with near-syncope, and concern for intermediate coronary syndrome, the decision was made to admit the patient for further evaluation and management. Assessment and Plan: 1. Symptomatic Bradycardia with Near-Syncope: - Admit to telemetry for continuous cardiac monitoring - Hold any potential bradycardia-inducing medications - Cardiology consultation for evaluation of possible sick sinus syndrome or conduction abnormality - Consider temporary pacing if bradycardia persists or worsens 2. Intermediate Coronary Syndrome: - Serial cardiac enzymes - ECG monitoring - Cardiology consultation - Consider stress testing or cardiac catheterization if indicated 3. Vomiting and Diarrhea: - Continue IV fluid hydration - Ondansetron (Zofran) as needed for nausea - Consider stool studies if diarrhea persists - Monitor intake and output 4. Leukocytosis: - Monitor for signs of infection - Consider blood cultures if febrile - Broad-spectrum antibiotics if clinical suspicion for bacterial infection increases 5. Diabetes Management: - Monitor blood glucose levels - Continue home diabetic medications as appropriate - Adjust insulin regimen as needed based on oral intake 6. Disposition: Admit to medical floor with telemetry monitoring Additional Notes: Patient admitted for intermediate coronary syndrome and symptomatic bradycardia with near syncope. Billing Information: ICD-10: R00.1 - Bradycardia, unspecified ICD-10: R11.10 - Vomiting, unspecified ICD-10: R19.7 - Diarrhea, unspecified ICD-10: R55 - Syncope and collapse ICD-10: I20.9 - Angina pectoris, unspecified Critical Care Note Critical Care Time?: Yes (35 min-critical care time only) Critical care comment: Total critical care time: Approximately 36 minutes Due to a high probability of clinically significant, life threatening deterioration, the patient required my highest level of preparedness to intervene emergently and I personally spent this critical care time directly and personally managing the patient. This critical care time included obtaining a history; examining the patient; pulse oximetry; ordering and review of studies; arranging urgent treatment with development of a management plan; evaluation of patient's response to treatment; frequent reassessment; and, discussions with other providers. This critical care time was performed to assess and manage the high probability of imminent, life-threatening deterioration that could result in multi-organ failure. It was exclusive of separately billable procedures and treating other patients. Stability Stability form required: No Heart Score Heart Score: Heart Score Response (Comments) Value History Moderate Suspicious 1 EKG Repolarization Disturb 1 Age >65 2 Risk Factors 1 or 2 risk factors 1 Troponin Normal limit 0 Total 5 I personally scribed for DURGA FARRIS MD ([email or web address]) on 02/28/25 at 22:11. Electronically submitted by Cholo Sutton ([email or web address]). DURGA FARRIS MD Feb 28, 2025 22:11
[2025-02-28 22:13] LABS: Chloride 107 mmol/L (98-107); Potassium 3.6 mmol/L (3.5-5.1); Sodium 139 mmol/L (136-145)
[2025-02-28 22:14] LABS: Anion Gap 10 (5-15); Calcium 9.9 mg/dL (8.7-10.4); Carbon Dioxide 22 mmol/L (20-31)
[2025-02-28 22:19] LABS: BUN/Creatinine Ratio 17.1 (10.0-20.0); Blood Urea Nitrogen 13 mg/dL (9-23)
[2025-02-28 22:25] LABS: Glucose 158 mg/dL (74-106)
[2025-02-28 22:42] LABS: Urine Budding Yeast OCCASIONAL /hpf (None Seen); Urine Protein, UAD TRACE (Negative)
[2025-02-28 22:49] LABS: INR 0.98 (0.9-1.15); Partial Thromboplastin Time 24.2 SEC (24.5-34.5); Prothrombin Time 10.4 sec (9.3-11.8)
--- NOTE | 2025-02-28 23:14 | ECG ---
[facility] Test Date: 2025-02-28 Test Time: 23:00:31 Pat Name: HAILEE MEJIA Department: ED Room: 0220T Gender: F Education Professor: LÁZARO : 1940 Requested By: DURGA FARRIS Order Number: [id number] Reading MD: Fred Aguilar Measurements Intervals [place] Rate: 71 P: 169 MT: 242 QRS: 96 QRSD: 101 T: 77 QT: 452 QTc: 492 Interpretive Statements Sinus or ectopic atrial rhythm Prolonged MT interval Right axis deviation Borderline prolonged QT interval Electronically Signed On 03-05-2025 15:48:29 PDT by Fred Aguilar Please click the below link to view image of tracing.
[2025-03-01] MEDS ORDERED: ACETAMINOPHEN 325 MG TAB PO PRN (01:15)
[2025-03-01] MEDS ORDERED: DEXTROSE (50%) 50ML SYRG IV PRN (01:15)
[2025-03-01] MEDS ORDERED: DOCUSATE SOD 100 MG CAP PO PRN (01:15)
[2025-03-01] MEDS: cefTRIAXone 1GM/50ML D5W 50 ML IV ONE (01:49)
--- NOTE | 2025-03-01 01:59 | DVHHP2 ---
History of Present Illness Reason for Visit: Acute chest pain History of Present Illness The patient is a 84 years old female with past medical history of dementia, diabetes mellitus, thyroid disease, hyperlipidemia, and hypertension who presented to [facility] ED accompanied by son with complaint of chest pain. As reported by son, patient has been experiencing chest pain, associated with abdominal discomfort, nausea, vomiting, diarrhea, getting worse that prompted this visit. Patient was seen and evaluated in the ED, laboratory data shows WBC 13.0, platelets 304, sodium 139, potassium 3.6, BUN 13, creatinine 0.76, glucose 158, calcium 9.9, BNP 21.09, troponin 12, blood pressure 162/67, heart rate 74, temperature 97.6 F, O2 saturation 99% on room air. Chest x-ray results pending. Please see medication orders section in the computer. On my assessment, son at bedside, patient denied chest pain, no dizziness, no headache, no shortness of breaths, no diarrhea, nausea or vomiting at this moment, no fever, no chills. Patient was admitted for further evaluation and medical management. Past Medical History Dementia, DM, High Lipids, HTN, Thyroid Past Surgical History Colonoscopy Family History Reviewed, noncontributory to the management of this case. Past Social History The patient lives at home, denies smoking, alcohol or illicit drugs abuse. Review of Systems Constitutional: Yes: Weakness; No: Fever, Chills, Sweats, Malaise, Other Eyes: No: Pain, Vision change, Conjunctivae inflammation, Eyelid inflammation, Other, Redness ENT: No: Ear pain, Ear discharge, Nose pain, Nose discharge, Nose congestion, Mouth pain, Mouth swelling, Throat pain, Throat swelling, Other Respiratory: No: Cough, Dry, Shortness of breath, SOB with excertion, Wheezing, Hemoptysis, Pleuritic Pain, Sputum, Wheezing, Other Cardiovascular: Chest Pain; No: Palpitations, Orthopnea, Paroxysmal Noc. Dyspnea, Edema, Lt Headedness, Other Gastrointestinal: Nausea, Vomiting, Abdominal Pain, Diarrhea; No: Constipation, Melena, Hematochezia, Other Genitourinary: No Dysuria, No Frequency, No Incontinence, No Hematuria, No Retention, No Other Musculoskeletal: No: other, neck pain, shoulder pain, arm pain, back pain, hand pain, leg pain, foot pain Skin: No: Rash, Lesions, Jaundice, Bruising, Other Neurological: No: Weakness, Numbness, Incoordination, Change in speech, Confusion, Seizures, Other Allergies: Coded Allergies: NO KNOWN ALLERGIES (Unverified , 04/10/24) Medications Current Medications Medications Dose Ordered Sig/Myles Route Start Time Stop Time Status Last Admin Dose Admin Aspirin 81 mg DAILY PO 03/01/25 10:00 Atorvastatin Calcium 10 mg HS PO 03/01/25 22:00 Levothyroxine Sodium 88 mcg QAM@0600 PO 03/01/25 06:00 Ceftriaxone Sodium 50 ml @ 100 mls/hr DAILY@09 IV 03/02/25 09:00 Clonidine HCl 0.1 mg Q4HP PRN PO 03/01/25 01:15 Fluoxetine HCl 10 mg DAILY PO 03/01/25 10:00 Diagnostic Test (Pha) 1 strip ACHS 03/01/25 07:00 Insulin Human Regular HS SC 03/01/25 22:00 Insulin Human Regular AC SC 03/01/25 07:00 Dextrose 50 ml UD PRN IV 03/01/25 01:15 Sodium Chloride 1,000 ml @ 60 mls/hr [id number] IV 03/01/25 01:15 Acetaminophen/ Hydrocodone Bitart 1 tab Q4HP PRN PO 03/01/25 01:15 Ondansetron HCl 4 mg Q4HP PRN IV 03/01/25 01:15 Docusate Sodium 100 mg BIDPRN PRN PO 03/01/25 01:15 Acetaminophen 500 mg Q6HP PRN PO 03/01/25 01:15 Exam Vital Signs Vital Signs Date Time Temp Pulse Resp B/P (MAP) Pulse Ox O2 Delivery O2 Flow Rate FiO2 03/01/25 00:15 74 17 100 Room Air 03/01/25 00:15 97.5 162/67 (98) 97.5 General Appearance: Alert, Oriented X3, Cooperative, No acute distress HEENT: Atraumatic, PERRLA, EOMI, Mucous membr. moist/pink Respiratory: Normal air movement Cardiovascular: Regular rate, Normal S1, Normal S2, No murmurs Abdominal: Normal bowel sounds, Soft, No tenderness, No hepatospenomegaly, No masses Extremities: No clubbing, No cyanosis, No edema, Normal pulses, No tenderness/swelling Skin: No rashes, No significant lesion Neuro: Normal speech, Normal tone, Sensation intact, Cranial nerves 3-12 NL, Reflexes 2+, Other (Generalized weakness) Psych/Mental Status: Mental status NL, Mood NL Labs/Xrays Labs Test 03/01/25 00:24 02/28/25 21:55 02/28/25 21:43 Range/Units Troponin I High Sensitivity 12 </=34 ng/L Urine Color Light-yellow Yellow Urine Clarity Clear Clear Urine pH 5.0 5.0-9.0 Urine Specific [place] 1.031 1.001-1.035 Urine Protein Trace H Negative Urine Ketones Negative Negative Urine Blood Negative Negative /uL Urine Nitrite Negative Negative Urine Bilirubin Negative Negative Urine Urobilinogen Normal Negative mg/dL Urine Leukocyte Esterase Negative Negative /uL Urine RBC None seen 0 - 4 /hpf Urine Microscopic WBC 1 0-5 /HPF Urine Squamous Epithelial Cells None seen <5 /hpf Urine Bacteria None seen None Seen /hpf Urine Yeast (Budding) Occasional None Seen /hpf Urine Glucose 4+ H Normal mg/dL White Blood Count 13.0 #H 4.4-10.8 10^3/uL Red Blood Count 4.59 4.0-5.20 10^6/uL Hemoglobin 14.6 12.2-16.2 g/dL Hematocrit 43.8 36.0-46.0 % Mean Corpuscular Volume 95.4 80.0-100.0 fL Mean Corpuscular Hemoglobin 31.8 28.0-32.0 pg Mean Corpuscular Hemoglobin Concent 33.4 32.0-36.0 g/dL Red Cell Distribution Width 14.0 11.8-14.3 % Platelet Count 304 140-450 10^3/uL Mean Platelet Volume 7.7 6.9-10.8 fL Neutrophils (%) (Auto) 83.1 H 37.0-80.0 % Lymphocytes (%) (Auto) 12.2 10.0-50.0 % Monocytes (%) (Auto) 4.0 0.0-12.0 % Eosinophils (%) (Auto) 0.2 0.0-7.0 % Basophils (%) (Auto) 0.5 0.0-2.0 % Neutrophils # (Auto) 10.8 H 1.6-8.6 10 ^3/uL Lymphocytes # (Auto) 1.6 0.4-5.4 10 ^3/uL Monocytes # (Auto) 0.5 0-1.3 10 ^3/uL Eosinophils # (Auto) 0 0-0.8 10 ^3/uL Basophils # (Auto) 0.1 0-0.2 10 ^3/uL Nucleated Red Blood Cells 0.0 % Prothrombin Time 10.4 9.3-11.8 sec Prothrombin Time INR 0.98 0.9-1.15 Activated Partial Thromboplast Time 24.2 L 24.5-34.5 SEC Sodium Level 139 136-145 mmol/L Potassium Level 3.6 3.5-5.1 mmol/L Chloride Level 107 98-107 mmol/L Carbon Dioxide Level 22 20-31 mmol/L Anion Gap 10 5-15 Blood Urea Nitrogen 13 9-23 mg/dL Creatinine 0.76 0.550-1.02 mg/dL Glomerular Filtration Rate Calc 77 >90 mL/min BUN/Creatinine Ratio 17.1 10.0-20.0 Serum Glucose 158 H 74-106 mg/dL Calcium Level 9.9 8.7-10.4 mg/dL B-Type Natriuretic Peptide 21.09 0-100 pg/mL Chest x-ray results pending SEPSIS Sepsis Screen Date sepsis recognized/suspect: Feb 28, 2025 Time Sepsis recognized/suspect: 2203 Recent Procedure: No On Antibiotic Therapy: No Respiratory Rate >20: No Heart Rate >90: No Temp<36 C (96.8 F) or >38.3 C: No SBP <90 or MAP <65 mmHG: No New Acute Mental Status Change: No Is the patient on CPAP, BIPAP,: No Physician Orders Electrocardigram (02/28/25 22:35) Electrocardigram (03/01/25 00:35) Chest Portable (02/28/25 21:40) Complete Blood Count (03/01/25 04:00) Comprehensive Metabolic Panel (03/01/25 04:00) Thyroid Stimulating Hormone (03/01/25 04:00) Aspirin Tablet (03/01/25 10:00) Atorvastatin (Lipitor) (03/01/25 22:00) Levothyroxine Tablet (Synthroid Tablet) (03/01/25 06:00) Clonidine Hcl Tablet (Catapres Tablet) (03/01/25 01:15) Fluoxetine Capsule (Prozac Capsule) (03/01/25 10:00) Consistent Carb(Ccho)Diabetes (03/01/25 Breakfast) Glucose Blood (Accu-Chek Comfort Curve T (03/01/25 07:00) Insulin R (Human) (Insulin R) (03/01/25 22:00) Insulin R (Human) (Insulin R) (03/01/25 07:00) Dextrose 50% Syringe (03/01/25 01:15) Allergies (03/01/25 01:13) Code Status (03/01/25 01:13) Sodium Chloride 0.9% (03/01/25 01:15) Oxygen Per Hour (03/01/25 01:13) Hydrocodone-Acet 5/325mg Tab ([place] 5/32 (03/01/25 01:15) Ondansetron Hcl (Zofran) (03/01/25 01:15) Docusate Sodium Capsule (Colace Capsule) (03/01/25 01:15) Fall Risk Precautions In Place QSHIFT (03/01/25 01:13) Complete Blood Count (03/02/25 04:00) Comprehensive Metabolic Panel (03/02/25 04:00) Condition: Serious (03/01/25 01:13) Acetaminophen Tablet (Tylenol Tablet) (03/01/25 01:15) Maintain Bed Rest (03/01/25 01:13) Sequential Compression Device (03/01/25 ) Ceftriaxone 1gm/50ml D5w (Rocephin) (03/02/25 09:00) Admit (03/01/25 01:58) Nitroglycerin Sublingual (Ntrostat Subli (03/01/25 02:00) Morphine Sulfate Injection (03/01/25 02:00) Stat Ekg For Chest Pain (03/01/25 01:58) Notify Md Of Changes From Base (03/01/25 01:58) Solar Project Engineer For 24 Hours (03/01/25 01:58) Emergency Dysrhythmia Protocol (03/01/25 01:58) Rhythm Strips Once Every Shift (03/01/25 01:58) Oxygen By Nasal Cannula (03/01/25 01:58) Vital Signs Date Time Temp Pulse Resp B/P (MAP) Pulse Ox O2 Delivery O2 Flow Rate FiO2 03/01/25 00:15 74 17 100 Room Air 03/01/25 00:15 97.5 74 17 162/67 (98) 100 97.5 02/28/25 23:00 71 02/28/25 22:02 98.0 80 22 143/70 (94) 97 98.0 02/28/25 21:54 72 Laboratory Tests Test 02/28/25 21:43 White Blood Count 13.0 10^3/uL (4.4-10.8) #H Medications Medications Dose Ordered Sig/Myles Route Start Time Stop Time Status Last Admin Dose Admin Ceftriaxone Sodium 50 ml @ 100 mls/hr ONCE ONCE IV 03/01/25 01:15 03/01/25 01:44 DC 03/01/25 01:49 100 MLS/HR Ondansetron HCl 4 mg ONCE ONCE IV 02/28/25 22:15 02/28/25 22:16 DC 02/28/25 00:30 4 MG Sodium Chloride 500 ml @ 500 mls/hr Q1H ONCE IV 02/28/25 22:15 02/28/25 23:14 DC 02/28/25 00:30 500 MLS/HR Assessment/Plan Assessment/Plan Acute chest pain Vomiting and diarrhea Intermediate coronary syndrome Leukocytosis, unspecified Generalized weakness Plan 1. Admit to telemetry unit 2. Breathing treatment 3. Pain control management 4. IV antibiotic management 5. Management of fluids and electrolytes 6. Consultation for hospitalist 7. Diagnostic test chest x-ray 8. DVT prophylaxis on aspirin 9. Repeat labs CBC, CMP in a.m. 10. Home medication reviewed and reconciled 11. Continue with current medical management 12. Treatment plan discussed with patient/son and RN. Patient/son verbalized understanding. Plan discussed with: Patient, Other (RN) My Orders Orders - EVERETT CARRERO DNP Procedure Category Date Status Time Complete Blood Count LAB 03/01/25 Logged 04:00 Comprehensive LAB 03/01/25 Logged Metabolic Panel 04:00 Thyroid Stimulating LAB 03/01/25 Logged Hormone 04:00 Aspirin Tablet PHA 03/01/25 In Process 10:00 Atorvastatin (Lipitor) PHA 03/01/25 In Process 22:00 Levothyroxine Tablet PHA 03/01/25 In Process (Synthroid Tablet) 06:00 Clonidine Hcl Tablet PHA 03/01/25 In Process (Catapres Tablet) 01:15 Fluoxetine Capsule PHA 03/01/25 In Process (Prozac Capsule) 10:00 Consistent DIET 03/01/25 Transmitted Carb(Ccho)Diabetes Breakfast Glucose Blood PHA 03/01/25 In Process (Accu-Chek Comfort 07:00 Insulin R (Human) PHA 03/01/25 In Process (Insulin R) 22:00 Insulin R (Human) PHA 03/01/25 In Process (Insulin R) 07:00 Dextrose 50% Syringe PHA 03/01/25 In Process 01:15 Allergies ORLIN 03/01/25 In Process 01:13 Code Status CODE 03/01/25 Transmitted 01:13 Sodium Chloride 0.9% PHA 03/01/25 In Process 01:15 Oxygen Per Hour RT 03/01/25 Transmitted 01:13 Hydrocodone-Acet PHA 03/01/25 In Process 5/325mg Tab ([place] 01:15 Ondansetron Hcl PHA 03/01/25 In Process (Zofran) 01:15 Docusate Sodium PHA 03/01/25 In Process Capsule (Colace 01:15 Fall Risk Precautions ORLIN 03/01/[address] 01:13 Complete Blood Count LAB 03/02/25 Verified 04:00 Comprehensive LAB 03/02/25 Verified Metabolic Panel 04:00 Condition: Serious ORLIN 03/01/25 In Process 01:13 Acetaminophen Tablet [facility] 03/01/25 In Process (Tylenol Tablet) 01:15 Maintain Bed Rest [facility] 03/01/25 In Process 01:13 Sequential ORLIN 03/01/25 In Process Compression Device Ceftriaxone 1gm/50ml [facility] 03/02/25 In Process D5w (Rocephin) 09:00 Admit ADMIT 03/01/25 Verified 01:58 Nitroglycerin [facility] 03/01/25 Verified Sublingual (Ntrostat 02:00 Morphine Sulfate [facility] 03/01/25 Verified Injection 02:00 Stat Ekg For Chest [facility] 03/01/25 Verified Pain 01:58 Notify Of Changes [facility] 03/01/25 Verified From Base 01:58 Solar Project Engineer For [facility] 03/01/25 Verified 24 Hours 01:58 Emergency Dysrhythmia [facility] 03/01/25 Verified Protocol 01:58 Rhythm Strips Once [facility] 03/01/25 Verified Every Shift 01:58 Oxygen By Nasal RT 03/01/25 Verified Cannula 01:58 Problem List: (1) Acute chest pain (2) Vomiting and diarrhea (3) Intermediate coronary syndrome (4) Leukocytosis, unspecified (5) Generalized weakness Date of Service: Mar 01, 2025 Billing Provider: EVERETT CARRERO DNP Common Visit Codes: [id number] INP/OBS CARE (HIGH) EVERETT CARRERO DNP Mar 01, 2025 01:59
[2025-03-01] MEDS ORDERED: NITROGLYCERIN 0.4 MG SL TAB SL PRN (02:00)
[2025-03-01] MEDS ORDERED: MORPHINE SULFATE INJ 2 MG/ml SYRG IV PRN (02:00)
[2025-03-01 03:35] LABS: Hematocrit 40.5 % (36.0-46.0); Hemoglobin 13.2 g/dL (12.2-16.2); Mean Corpuscular Hemoglobin 32.2 pg (28.0-32.0); Mean Corpuscular Volume 98.7 fL (80.0-100.0); Nucleated Red Blood Cells % 0.0 %
[2025-03-01 03:47] LABS: Alanine Aminotransferase 22 U/L (7-40); Albumin 3.7 g/dL (3.2-4.8); Alkaline Phosphatase 46 U/L (46-116); Anion Gap 10 (5-15); BUN/Creatinine Ratio 18.3 (10.0-20.0); Blood Urea Nitrogen 11 mg/dL (9-23); Calcium 8.7 mg/dL (8.7-10.4); Potassium 4.0 mmol/L (3.5-5.1); Sodium 138 mmol/L (136-145); Total Protein 5.9 g/dL (5.7-8.2)
[2025-03-01 03:48] LABS: Bilirubin, Total 0.6 mg/dL (0.2-1.0)
[2025-03-01 03:58] LABS: Carbon Dioxide 19 mmol/L (20-31); Chloride 109 mmol/L (98-107); Glucose 137 mg/dL (74-106)
--- NOTE | 2025-03-01 04:32 | DVH ---
CHEST RADIOGRAPH Indication: chest pain Technique: Single frontal view of the chest was obtained COMPARISON: XY CHEST XRAY 1 VIEW on DOS: 02/14/25 FINDINGS: Lines and Tubes: None Lungs: Small right pleural effusion. No evidence of focal consolidation. No pneumothorax. Cardiomediastinal contours: Unremarkable Bones: Unremarkable IMPRESSION: 1. Small right pleural effusion.
[2025-03-01] MEDS: LEVOTHYROXINE SODIUM 88 MCG TAB PO SCH (06:10)
[2025-03-01] MEDS: InsuLIN REG 1unit/0.01ml Soln (100units/ml) SC SCH ×2 (06:55→22:16)
[2025-03-01] MEDS: ACCU-CHEK COMFORT CURVE STRIP VI SCH (07:01)
[2025-03-01 09:00] VITALS: BP 131/55; PULSE 64; RESP 15; TEMP 97.9; O2SAT 97
[2025-03-01] MEDS ORDERED: AMLO1TAB21 PO (09:18)
[2025-03-01] MEDS ORDERED: AML5T PO (09:18)
[2025-03-01] MEDS: SODIUM CHLORIDE 0.9% 1,000 ML IV SCH (15:27)
[2025-03-01 15:49] VITALS: RESP 18; O2SAT 97
[2025-03-01 17:00] VITALS: BP 143/72; PULSE 65; RESP 17; TEMP 97.9; O2SAT 98
[2025-03-01] MEDS ORDERED: PANT40TA2 PO (17:55)
[2025-03-01 20:00] VITALS: PULSE 64; PULSE 67; RESP 18; O2SAT 100
[2025-03-01 21:00] VITALS: BP 158/68; PULSE 67; RESP 18; TEMP 97.4; O2SAT 96
[2025-03-01] MEDS: ZOLPIDEM TARTRATE 5 MG TAB PO PRN (21:42)
[2025-03-01] MEDS: ATORVASTATIN 20 MG TAB PO SCH (21:42)
[2025-03-02] VITALS (8 sets, daily range): BP systolic 123–167; BP diastolic 62–85; PULSE 53–67; RESP 16–18; TEMP 97–98.1; O2SAT 96–98
[2025-03-02] MEDS: ONDANSETRON HCL 4 MG/2 ML VIAL IV PRN (04:40)
[2025-03-02] MEDS: HYDROcodone-ACET 5/325MG TAB PO PRN (04:43)
[2025-03-02 07:03] LABS: Hematocrit 36.9 % (36.0-46.0); Hemoglobin 12.8 g/dL (12.2-16.2); Mean Corpuscular Hemoglobin 32.6 pg (28.0-32.0); Mean Corpuscular Volume 94.4 fL (80.0-100.0); Nucleated Red Blood Cells % 0.0 %
[2025-03-02 07:26] LABS: Alanine Aminotransferase 15 U/L (7-40); Albumin 3.5 g/dL (3.2-4.8); Anion Gap 7 (5-15); BUN/Creatinine Ratio 19.4 (10.0-20.0); Bilirubin, Total 0.5 mg/dL (0.2-1.0); Blood Urea Nitrogen 12 mg/dL (9-23); Calcium 9.1 mg/dL (8.7-10.4); Carbon Dioxide 25 mmol/L (20-31); Chloride 106 mmol/L (98-107); Potassium 4.1 mmol/L (3.5-5.1); Sodium 138 mmol/L (136-145)
[2025-03-02 07:35] LABS: Alkaline Phosphatase 41 U/L (46-116); Glucose 129 mg/dL (74-106); Total Protein 5.6 g/dL (5.7-8.2)
[2025-03-02] MEDS: cefTRIAXone 1GM/50ML D5W 50 ML IV SCH (09:10)
--- NOTE | 2025-03-02 13:36 | DVHPN2 ---
Eyes: No Pain, No Vision change, No Conjunctivae inflammation, No Eyelid inflammation, No Other, No Redness ENT: No Ear pain, No Ear discharge, No Nose pain, No Nose discharge, No Nose congestion, No Mouth pain, No Mouth swelling, No Throat pain, No Throat swelling, No Other Cardiovascular: Chest Pain; No Palpitations, No Orthopnea, No Paroxysmal Noc. Dyspnea, No Edema, No Lt Headedness, No Other Respiratory: No Cough, No Dry, No Shortness of breath, No SOB with excertion, No Wheezing, No Hemoptysis, No Pleuritic Pain, No Sputum, No Other Gastrointestinal: Nausea, Vomiting, Abdominal Pain, Diarrhea; No Constipation, No Melena, No Hematochezia, No Other Genitourinary: No Dysuria, No Frequency, No Incontinence, No Hematuria, No Retention, No Other Musculoskeletal: No other, No neck pain, No shoulder pain, No arm pain, No back pain, No hand pain, No leg pain, No foot pain Skin: No Rash, No Lesions, No Jaundice, No Bruising, No Other Objective Vitals Vital Signs Date Time Temp Pulse Resp B/P (MAP) Pulse Ox O2 Delivery O2 Flow Rate FiO2 03/02/25 08:44 97.0 67 16 162/75 (104) 98 97.0 03/02/25 08:00 Room Air* 0 21 Intake/Output Intake and Output 03/02/25 07:00 Intake Total 200 ml Output Total 200 ml Balance 0 ml Intake Oral 200 ml Output Urine Total 200 ml # Voids 3 # Bowel Movements 1 Medications Current Medications Medications Dose Ordered Sig/Myles Route Start Time Stop Time Status Last Admin Dose Admin Aspirin 81 mg DAILY PO 03/01/25 10:00 03/02/25 09:10 81 MG Atorvastatin Calcium 10 mg HS PO 03/01/25 22:00 03/01/25 21:42 10 MG Levothyroxine Sodium 88 mcg QAM@0600 PO 03/01/25 06:00 03/02/25 06:35 88 MCG Ceftriaxone Sodium 50 ml @ 100 mls/hr DAILY@09 IV 03/02/25 09:00 03/02/25 09:10 100 MLS/HR Clonidine HCl 0.1 mg Q4HP PRN PO 03/01/25 01:15 Fluoxetine HCl 10 mg DAILY PO 03/01/25 10:00 03/02/25 09:10 10 MG Diagnostic Test (Pha) 1 strip ACHS 03/01/25 07:00 03/02/25 12:39 1 STRIP Insulin Human Regular HS SC 03/01/25 22:00 03/01/25 22:16 2 UNITS Insulin Human Regular AC SC 03/01/25 07:00 03/02/25 12:39 3 UNITS Dextrose 50 ml UD PRN IV 03/01/25 01:15 Sodium Chloride 1,000 ml @ 60 mls/hr [id number] IV 03/01/25 01:15 03/02/25 09:11 60 MLS/HR Acetaminophen/ Hydrocodone Bitart 1 tab Q4HP PRN PO 03/01/25 01:15 03/02/25 04:43 1 TAB Ondansetron HCl 4 mg Q4HP PRN IV 03/01/25 01:15 03/02/25 04:40 4 MG Docusate Sodium 100 mg BIDPRN PRN PO 03/01/25 01:15 Acetaminophen 500 mg Q6HP PRN PO 03/01/25 01:15 Nitroglycerin 0.4 mg Q5MINP PRN SL 03/01/25 02:00 Morphine Sulfate 2 mg Q30M PRN IV 03/01/25 02:00 Zolpidem Tartrate 5 mg HSPRN PRN PO 03/01/25 21:15 03/01/25 21:42 5 MG Laboratory Results Laboratory Tests 03/02/25 06:11 Chemistry Test 03/02/25 06:11 Albumin 3.5 g/dL (3.2-4.8) Calcium Level 9.1 mg/dL (8.7-10.4) Total Protein 5.6 g/dL (5.7-8.2) L LFT Test 03/02/25 06:11 Alanine Aminotransferase (ALT) 15 U/L (7-40) Alkaline Phosphatase 41 U/L (46-116) L Aspartate Amino Transferase (AST) 22 U/L (13-40) Total Bilirubin 0.5 mg/dL (0.2-1.0) Urinalysis Test 02/28/25 21:55 Urine Color Light-yellow (Yellow) Urine Clarity Clear (Clear) Urine pH 5.0 (5.0-9.0) Urine Specific [place] 1.031 (1.001-1.035) Urine Protein Trace (Negative) H Urine Ketones Negative (Negative) Urine Blood Negative /uL (Negative) Urine Nitrite Negative (Negative) Urine Bilirubin Negative (Negative) Urine Urobilinogen Normal mg/dL (Negative) Urine Leukocyte Esterase Negative /uL (Negative) Urine RBC None seen /hpf (0 - 4) Urine Microscopic WBC 1 /HPF (0-5) Urine Squamous Epithelial Cells None seen /hpf (<5) Urine Bacteria None seen /hpf (None Seen) Urine Yeast (Budding) Occasional /hpf (None Urine Glucose 4+ mg/dL (Normal) H Microbiology Microbiology Date/Time Source Procedure Growth Status 03/01/25 16:45 Nose MRSA Screen - Final Complete Date of Service: Mar 02, 2025 Billing Provider: EDDIE AMBRIZ DO Common Visit Codes: [id number] INP/OBS CARE(HIGH) EDDIE AMBRIZ DO Mar 02, 2025 13:36
--- NOTE | 2025-03-02 14:59 | DVHPN2 ---
Subjective The patient is seen and examined at bedside. Complain of severe abdominal pain. Reviewed: Care Plan, H&P, Labs, Medications, Previous Orders, Radiology Changes from previous H/P or p: No Changes Eyes: No Pain, No Vision change, No Conjunctivae inflammation, No Eyelid inflammation, No Other, No Redness ENT: No Ear pain, No Ear discharge, No Nose pain, No Nose discharge, No Nose congestion, No Mouth pain, No Mouth swelling, No Throat pain, No Throat swelling, No Other Cardiovascular: Chest Pain; No Palpitations, No Orthopnea, No Paroxysmal Noc. Dyspnea, No Edema, No Lt Headedness, No Other Respiratory: No Cough, No Dry, No Shortness of breath, No SOB with excertion, No Wheezing, No Hemoptysis, No Pleuritic Pain, No Sputum, No Other Gastrointestinal: Nausea, Vomiting, Abdominal Pain, Diarrhea; No Constipation, No Melena, No Hematochezia, No Other Genitourinary: No Dysuria, No Frequency, No Incontinence, No Hematuria, No Retention, No Other Musculoskeletal: No other, No neck pain, No shoulder pain, No arm pain, No back pain, No hand pain, No leg pain, No foot pain Skin: No Rash, No Lesions, No Jaundice, No Bruising, No Other Objective Vitals Vital Signs Date Time Temp Pulse Resp B/P (MAP) Pulse Ox O2 Delivery O2 Flow Rate FiO2 03/02/25 13:51 152/79 03/02/25 13:00 97.9 61 18 96 97.9 03/02/25 08:00 Room Air* 0 21 Intake/Output Intake and Output 03/02/25 07:00 Intake Total 200 ml Output Total 200 ml Balance 0 ml Intake Oral 200 ml Output Urine Total 200 ml # Voids 3 # Bowel Movements 1 General Appearance: Alert, mild distress HEENT: Atraumatic, PERRLA, EOMI, Other (Mucous membranes dry) Neck: Supple Lungs: Clear to auscultation, Normal air movement Cardiovascular: Regular rate, Normal S1, Normal S2, No murmurs, Gallops, Rubs Abdomen: Normal bowel sounds, Soft Extremities: Normal pulses Neuro: Cranial nerves 3-12 NL Psych/Mental Status: Other (Dementia) Medications Current Medications Medications Dose Ordered Sig/Myles Route Start Time Stop Time Status Last Admin Dose Admin Aspirin 81 mg DAILY PO 03/01/25 10:00 03/02/25 09:10 81 MG Atorvastatin Calcium 10 mg HS PO 03/01/25 22:00 03/01/25 21:42 10 MG Levothyroxine Sodium 88 mcg QAM@0600 PO 03/01/25 06:00 03/02/25 06:35 88 MCG Ceftriaxone Sodium 50 ml @ 100 mls/hr DAILY@09 IV 03/02/25 09:00 03/02/25 09:10 100 MLS/HR Clonidine HCl 0.1 mg Q4HP PRN PO 03/01/25 01:15 03/02/25 13:51 0.1 MG Fluoxetine HCl 10 mg DAILY PO 03/01/25 10:00 03/02/25 09:10 10 MG Diagnostic Test (Pha) 1 strip ACHS 03/01/25 07:00 03/02/25 12:39 1 STRIP Insulin Human Regular HS SC 03/01/25 22:00 03/01/25 22:16 2 UNITS Insulin Human Regular AC SC 03/01/25 07:00 03/02/25 12:39 3 UNITS Dextrose 50 ml UD PRN IV 03/01/25 01:15 Sodium Chloride 1,000 ml @ 60 mls/hr [id number] IV 03/01/25 01:15 03/02/25 09:11 60 MLS/HR Acetaminophen/ Hydrocodone Bitart 1 tab Q4HP PRN PO 03/01/25 01:15 03/02/25 04:43 1 TAB Ondansetron HCl 4 mg Q4HP PRN IV 03/01/25 01:15 03/02/25 04:40 4 MG Docusate Sodium 100 mg BIDPRN PRN PO 03/01/25 01:15 Acetaminophen 500 mg Q6HP PRN PO 03/01/25 01:15 Nitroglycerin 0.4 mg Q5MINP PRN SL 03/01/25 02:00 Morphine Sulfate 2 mg Q30M PRN IV 03/01/25 02:00 Zolpidem Tartrate 5 mg HSPRN PRN PO 03/01/25 21:15 03/01/25 21:42 5 MG Laboratory Results Laboratory Tests 03/02/25 06:11 Chemistry Test 03/02/25 06:11 Albumin 3.5 g/dL (3.2-4.8) Calcium Level 9.1 mg/dL (8.7-10.4) Total Protein 5.6 g/dL (5.7-8.2) L LFT Test 03/02/25 06:11 Alanine Aminotransferase (ALT) 15 U/L (7-40) Alkaline Phosphatase 41 U/L (46-116) L Aspartate Amino Transferase (AST) 22 U/L (13-40) Total Bilirubin 0.5 mg/dL (0.2-1.0) Urinalysis Test 02/28/25 21:55 Urine Color Light-yellow (Yellow) Urine Clarity Clear (Clear) Urine pH 5.0 (5.0-9.0) Urine Specific [place] 1.031 (1.001-1.035) Urine Protein Trace (Negative) H Urine Ketones Negative (Negative) Urine Blood Negative /uL (Negative) Urine Nitrite Negative (Negative) Urine Bilirubin Negative (Negative) Urine Urobilinogen Normal mg/dL (Negative) Urine Leukocyte Esterase Negative /uL (Negative) Urine RBC None seen /hpf (0 - 4) Urine Microscopic WBC 1 /HPF (0-5) Urine Squamous Epithelial Cells None seen /hpf (<5) Urine Bacteria None seen /hpf (None Seen) Urine Yeast (Budding) Occasional /hpf (None Urine Glucose 4+ mg/dL (Normal) H Microbiology Microbiology Date/Time Source Procedure Growth Status 03/01/25 16:45 Nose MRSA Screen - Final Complete Labs and/or images reviewed: Labs reviewed by me Assessment/Plan Assessment/Plan Acute chest pain Vomiting and diarrhea Intermediate coronary syndrome Leukocytosis, unspecified Generalized weakness Continuing current management. CT abdomen pelvis was order. Waiting for result. Continuing Zofran p.r.n. for nausea and vomiting. Continuing IV antibiotic with Rocephin. Waiting for culture. This medical document was created using an electronic medical record system with [employer] direct computerized dictation system. Although this document has been carefully reviewed, there may still be some phonetic and typographical errors. These areas are purely typographical due to imperfections of the software programs, and do not reflect any compromise in the patient's medical care. Plan discussed with: Patient, Other (RN) My Orders Orders - DADA MENDOZA MD Procedure Category Date Status Time Pt Request For Service PT 03/02/25 Logged 10:18 Date of Service: Mar 02, 2025 Billing Provider: DADA MENDOZA MD Common Visit Codes: [id number] INP/OBS CARE(HIGH) DADA MENDOZA MD Mar 02, 2025 14:59
--- NOTE | 2025-03-02 16:21 | DVHINCON2 ---
Date Seen: Mar 02, 2025 Referring Physician MD Bira Reason for Consultation Unstable angina History of Present Illness This is a pleasant 84-year-old female who presented to the emergency room via EMS with a chief complaint of chest pain for 3 hours. At time of assessment the patient denied any chest pain but complaint of lower abdominal pain and pelvic pain. She underwent multiple 12 lead electrocardiograms revealing a sinus rhythm with an associated first-degree atrioventricular block. Troponin levels are negative. Significant medical history includes hypertension, dyslipidemia, aci-dyvvsgu-cpoeuqcir diabetes mellitus, thyroid disease, osteoporosis, and dementia. Past Medical History Past medical history reviewed. No other significant than mentioned above. Past Surgical History Past Surgical history reviewed. No other significant than mentioned above. Family History: Patient reports no known family medical history. Family History Family history reviewed. Social History Denies the use of illicit drugs, alcohol, or tobacco use. Allergies: Coded Allergies: NO KNOWN ALLERGIES (Unverified , 04/10/24) Home Meds Active Scripts Polyethylene Glycol 3350 (Miralax) 17 Gm Pow, 17 GM PO DAILY for 5 Days, #5 POW Prov:ANTONY LOBATO MD 02/27/25 Acetaminophen (Acetaminophen Er) 650 Mg Tab, 650 MG PO TIDPRN PRN for 5 Days, #15 TAB Prov:ANTONY LOBATO MD 02/27/25 Methylprednisolone (Medrol Dosepak) 4 Mg Farhan, 4 MG PO UD, #21 TAB UAD Prov:LUIZ MOORE NP 02/20/25 Metronidazole (Flagyl) 500 Mg Tab, 1 TAB PO TID for 5 Days, #15 TAB Prov:LUIZ MOORE NP 02/20/25 Acetaminophen (Tylenol 8 Hour Arthritis) 650 Mg Tab, 650 MG PO TID, #30 TAB Prov:HARSH GRACE 06/29/24 Reported Medications Pantoprazole Sodium Sesquihydr (Protonix) 40 Mg Tab, 40 MG PO DAILY, #30 TAB 03/01/25 Amlodipine Besylate (Amlodipine Besylate) 2.5 Mg Tab, 1 TAB PO DAILY, #30 TAB 5 Refills 03/01/25 Amlodipine Besylate (NORVASC TABLET) 5 Mg Tb, 1 TAB PO DAILY, #30 TAB 5 Refills 03/01/25 Fluoxetine HCl (Pmdd) (Fluoxetine HCl) 10 Mg Tab, 10 MG PO DAILY, TAB 7/7/25 Levothyroxine Sodium (Levothyroxine Sodium) 88 Mcg Tab, 88 MCG PO QAM for 30 Days, MCG 02/17/25 Empagliflozin (Jardiance) 10 Mg Tab, 10 MG PO DAILY, TAB 02/17/25 Memantine Hydrochloride (Memantine HCl) 10 Mg Tab, 10 MG PO BID, TAB 02/17/25 Metformin Hydrochloride (Metformin Hcl) 500 Mg Tab, 1 TAB PO BID, #60 TAB 3 Refills 02/12/25 Atorvastatin Calcium (Lipitor) 10 Mg Tab, 1 TAB PO QPM, #90 TAB 1 Refill 02/12/25 Zolpidem Tartrate (Zolpidem Tartrate) 5 Mg Tab, 1 TAB PO QPM, #30 TAB 2 Refills 02/12/25 Ciclopirox (Ciclopirox Nail Lacquer) 8 % [place], 1 APPLIC TOP BID, #6.6 ML 6 Refills 02/12/25 Alendronate Sodium (Alendronate Sodium) 35 Mg Tab, 1 TAB PO QWEEKLY, #4 TAB 11 Refills 02/12/25 Home Meds Home medications reviewed. Current Medications Current Medications Medications (Trade) Dose Ordered Sig/Myles Route PRN Reason Start Time Stop Time Status Last Admin Atorvastatin Calcium (Lipitor) 10 mg HS PO 03/01/25 22:00 03/01/25 21:42 Ceftriaxone Sodium 50 ml @ 100 mls/hr DAILY@09 IV 03/02/25 09:00 03/02/25 09:10 Insulin Human Regular (InsuLIN R) HS SC 03/01/25 22:00 03/01/25 22:16 Zolpidem Tartrate (Ambien) 5 mg HSPRN PRN PO FOR INSOMNIA 03/01/25 21:15 03/01/25 21:42 Review of Systems Constitutional: No symptom reported Ears, Nose, & Throat: No symptom reported Eyes: No symptom reported Neurological: No symptoms reported Pulmonary/Respiratory: No symptom reported Cardiovascular: Chest pain Gastrointestinal: Abdominal pain Genitourinary: No symptom reported Musculoskeletal: No symptom reported Skin: No symptom reported Psychiatric: No symptom reported Endocrine: No symptom reported Hemotologic/Lymphatic: No symptom reported Vital Signs Vital Signs Date Time Temp Pulse Resp B/P (MAP) Pulse Ox O2 Delivery O2 Flow Rate FiO2 03/02/25 13:51 152/79 03/02/25 13:00 97.9 61 18 96 97.9 03/02/25 08:00 Room Air* 0 21 Physical Exam General Appearance: Cooperative. Well developed. Well nourished. In no acute distress Head Exam: Normal inspection Neck Exam: Normal inspection. Non-tender. Normal alignment Pulmonary/Respiratory: Chest non-tender. Clear bilateral breath sounds Cardiovascular/Chest: Regular rate and rhythm. S1, S2. Sinus rhythm with a associated first-degree atrioventricular block. No murmurs. No JVD. Peripheral Pulses: 2+ Radial (R). 2+ Radial (L). 2+ Pedal (R). 2+ Pedal (L) Abdominal Exam: Normal bowel sounds. Soft. Lower abd/pelvic tender to touch Ankle Exam: Negative ankle edema Lower extremities: Negative lower extremity edema Neuro/Mental Status: A&O x3. Coherent Thoughts/Psych: Normal thought pattern. Appropriate mood and affect. Appearance: In no acute distress Skin Exam: Normal inspection. Normal color. Warm. Dry Labs/Diagnostic Data Labs Test 03/02/25 11:11 03/02/25 06:11 03/01/25 03:09 03/01/25 00:24 Range/Units POC Glucose 182 H 70-106 mg/dl White Blood Count 4.0 #L 4.4-10.8 10^3/uL Red Blood Count 3.91 L 4.0-5.20 10^6/uL Hemoglobin 12.8 12.2-16.2 g/dL Hematocrit 36.9 36.0-46.0 % Mean Corpuscular Volume 94.4 # 80.0-100.0 fL Mean Corpuscular Hemoglobin 32.6 H 28.0-32.0 pg Mean Corpuscular Hemoglobin Concent 34.6 32.0-36.0 g/dL Red Cell Distribution Width 13.8 11.8-14.3 % Platelet Count 220 140-450 10^3/uL Mean Platelet Volume 7.8 6.9-10.8 fL Neutrophils (%) (Auto) 61.0 37.0-80.0 % Lymphocytes (%) (Auto) 29.0 10.0-50.0 % Monocytes (%) (Auto) 8.0 0.0-12.0 % Eosinophils (%) (Auto) 1.5 0.0-7.0 % Basophils (%) (Auto) 0.5 0.0-2.0 % Neutrophils # (Auto) 2.4 1.6-8.6 10 ^3/uL Lymphocytes # (Auto) 1.2 0.4-5.4 10 ^3/uL Monocytes # (Auto) 0.3 0-1.3 10 ^3/uL Eosinophils # (Auto) 0.1 0-0.8 10 ^3/uL Basophils # (Auto) 0 0-0.2 10 ^3/uL Nucleated Red Blood Cells 0.0 % Sodium Level 138 136-145 mmol/L Potassium Level 4.1 3.5-5.1 mmol/L Chloride Level 106 98-107 mmol/L Carbon Dioxide Level 25 20-31 mmol/L Anion Gap 7 5-15 Blood Urea Nitrogen 12 9-23 mg/dL Creatinine 0.62 0.550-1.02 mg/dL Glomerular Filtration Rate Calc 87 >90 mL/min BUN/Creatinine Ratio 19.4 10.0-20.0 Serum Glucose 129 H 74-106 mg/dL Calcium Level 9.1 8.7-10.4 mg/dL Total Bilirubin 0.5 0.2-1.0 mg/dL Aspartate Amino Transferase (AST) 22 13-40 U/L Alanine Aminotransferase (ALT) 15 7-40 U/L Alkaline Phosphatase 41 L 46-116 U/L Total Protein 5.6 L 5.7-8.2 g/dL Albumin 3.5 3.2-4.8 g/dL Thyroid Stimulating Hormone (TSH) 18.36 H 0.55-4.78 uIU/mL Troponin I High Sensitivity 12 </=34 ng/L Test 02/28/25 21:55 02/28/25 21:43 Range/Units Urine Color Light-yellow Yellow Urine Clarity Clear Clear Urine pH 5.0 5.0-9.0 Urine Specific [place] 1.031 1.001-1.035 Urine Protein Trace H Negative Urine Ketones Negative Negative Urine Blood Negative Negative /uL Urine Nitrite Negative Negative Urine Bilirubin Negative Negative Urine Urobilinogen Normal Negative mg/dL Urine Leukocyte Esterase Negative Negative /uL Urine RBC None seen 0 - 4 /hpf Urine Microscopic WBC 1 0-5 /HPF Urine Squamous Epithelial Cells None seen <5 /hpf Urine Bacteria None seen None Seen /hpf Urine Yeast (Budding) Occasional None Seen /hpf Urine Glucose 4+ H Normal mg/dL Prothrombin Time 10.4 9.3-11.8 sec Prothrombin Time INR 0.98 0.9-1.15 Activated Partial Thromboplast Time 24.2 L 24.5-34.5 SEC B-Type Natriuretic Peptide 21.09 0-100 pg/mL Microbiology Date/Time Source Procedure Growth Status 03/01/25 16:45 Nose MRSA Screen - Final Complete Assessment Acute chest pain First-degree atrioventricular block Hypertension Dyslipidemia Thyroid disease Ewq-mhssjib-bldswvwbf diabetes mellitus Cachexia Dementia Plan/Recommendation (Dr. aPntoja) We will continue further cardiac evaluation with a transthoracic echocardiogram to evaluate cardiac function. Serial troponin levels were unremarkable and 12 lead electrocardiograms reviewed with no evidence of ischemia. At time of assessment the patient denied any further cardiac symptoms. Consider an outpatient cardiolite stress test if deemed necessary. In the setting of an unremarkable echocardiogram, there is no further cardiac workup indicated at this time. Thank you for allowing us to participate in this patient's care. Please call if you have any questions or concerns. This medical document was created using an electronic medical record system with voice recognition software and computerized dictation system. Although this document has been carefully reviewed, there might still be some phonetic and typographical errors. Occasional wrong-word or ``sound-alike substitutions may have occurred due to the inherent limitations of voice recognition software. These areas are purely typographical due to imperfections of the software programs and do not reflect any compromise in the patient's medical care. Please read the chart carefully and recognize, using context, where these substitutions have occurred. Plan discussed with: Patient, Other NYHA Physical activity limitations: NA Date of Service: Mar 02, 2025 Billing Provider: DEENA JOSHI Cardiology Common Codes: [id number] INP/OBS CARE (High) DEENA JOSHI [facility] Mar 02, 2025 16:21
--- NOTE | 2025-03-02 17:10 | DVH ---
CT CT AB PEL WO CON-NO ORAL OR IV INDICATION: abdominal pain EXAM DATE: 03/02/2025 03:14 PM COMPARISON: None RADIATION DOSE: CTDIvol: 5.07 mGy, DLP: 272.39 mGy*cm PROCEDURE: Helical CT images were obtained of the abdomen and pelvis without IV contrast Sagittal and coronal reconstructions are provided. ORAL CONTRAST: None. ADDITIONAL IMAGES / REFORMATS: None All C T scans at this medical facility are performed using dose modulation techniques as appropriate to a p erformed exam including the following: Automated exposure control was utilized; adjustment of the MA and/or KV according to patient size; and use of iterative reconstruction technique. FINDINGS: LUNG BASE: Normal. LIVER: Normal. GALLBLADDER AND BILIARY TREE: Cholecystectomy clips. No intra- or extrahepatic biliary ductal dilatio n. PANCREAS: Normal. SPLEEN: Normal. BOWEL: Similar prominent amount of feces in the colon with fecalization of the small bowel could be c onstipation. Appendix is not well visualized. ADRENALS: Normal. KIDNEYS AND URETER: Punctate nonobstructive left kidney stone. BLADDER: Normal. REPRODUCTIVE ORGANS: Atrophic. LYMPH NODES:No lymphadenopathy. PERITONEUM: No ascites or free air. No other fluid collection. VESSELS: Scattered atherosclerotic calcifications are noted. RETROPERITONEUM: Normal. ABDOMINAL WALL: Normal. BONES: Scattered osseous degenerative changes are noted. IMPRESSION: Similar prominent amount of feces in the colon with fecalization of the small bowel could be constipa tion. Punctate nonobstructive left kidney stone.
--- NOTE | 2025-03-02 23:31 | DVHINCON2 ---
Date Seen: Mar 02, 2025 Referring Physician MD Bria Reason for Consultation Unstable angina History of Present Illness This is an 84-year-old female with a past medical history of hypertension, dyslipidemia, sji-xmxzsdk-jbvyptltf diabetes mellitus, thyroid disease, osteoporosis, and dementia who presented to the ED by EMS with complaint of chest pain for 3 hours. At time of assessment the patient denied any chest pain but complaint of lower abdominal pain and pelvic pain. She underwent multiple 12 lead electrocardiograms revealing a sinus rhythm with an associated first-degree atrioventricular block. Troponin levels are negative. Chest x-ray shows small right pleural effusion. Patient was admitted to the hospital. I am asked to consult on this patient. Past Medical History Past medical history reviewed. No other significant than mentioned above. Past Surgical History Past Surgical history reviewed. No other significant than mentioned above. Family History: Patient reports no known family medical history. Allergies: Coded Allergies: NO KNOWN ALLERGIES (Unverified , 04/10/24) Home Meds Active Scripts Polyethylene Glycol 3350 (Miralax) 17 Gm Pow, 17 GM PO DAILY for 5 Days, #5 POW Prov:ANTONY LOBATO MD 02/27/25 Acetaminophen (Acetaminophen Er) 650 Mg Tab, 650 MG PO TIDPRN PRN for 5 Days, #15 TAB Prov:ANTONY LOBATO MD 02/27/25 Methylprednisolone (Medrol Dosepak) 4 Mg Farhan, 4 MG PO UD, #21 TAB UAD Prov:LUIZ MOORE NP 02/20/25 Metronidazole (Flagyl) 500 Mg Tab, 1 TAB PO TID for 5 Days, #15 TAB Prov:LUIZ MOORE NP 02/20/25 Acetaminophen (Tylenol 8 Hour Arthritis) 650 Mg Tab, 650 MG PO TID, #30 TAB Prov:HARSH GRACE 06/29/24 Reported Medications Pantoprazole Sodium Sesquihydr (Protonix) 40 Mg Tab, 40 MG PO DAILY, #30 TAB 03/01/25 Amlodipine Besylate (Amlodipine Besylate) 2.5 Mg Tab, 1 TAB PO DAILY, #30 TAB 5 Refills 03/01/25 Amlodipine Besylate (NORVASC TABLET) 5 Mg Tb, 1 TAB PO DAILY, #30 TAB 5 Refills 03/01/25 Fluoxetine HCl (Pmdd) (Fluoxetine HCl) 10 Mg Tab, 10 MG PO DAILY, TAB 02/17/25 Levothyroxine Sodium (Levothyroxine Sodium) 88 Mcg Tab, 88 MCG PO QAM for 30 Days, MCG 02/17/25 Empagliflozin (Jardiance) 10 Mg Tab, 10 MG PO DAILY, TAB 02/17/25 Memantine Hydrochloride (Memantine HCl) 10 Mg Tab, 10 MG PO BID, TAB 02/17/25 Metformin Hydrochloride (Metformin Hcl) 500 Mg Tab, 1 TAB PO BID, #60 TAB 3 Refills 02/12/25 Atorvastatin Calcium (Lipitor) 10 Mg Tab, 1 TAB PO QPM, #90 TAB 1 Refill 02/12/25 Zolpidem Tartrate (Zolpidem Tartrate) 5 Mg Tab, 1 TAB PO QPM, #30 TAB 2 Refills 02/12/25 Ciclopirox (Ciclopirox Nail Lacquer) 8 % [place], 1 APPLIC TOP BID, #6.6 ML 6 Refills 02/12/25 Alendronate Sodium (Alendronate Sodium) 35 Mg Tab, 1 TAB PO QWEEKLY, #4 TAB 11 Refills 02/12/25 Current Medications Current Medications Medications (Trade) Dose Ordered Sig/Myles Route PRN Reason Start Time Stop Time Status Last Admin Atorvastatin Calcium (Lipitor) 10 mg HS PO 03/01/25 22:00 03/01/25 21:42 Ceftriaxone Sodium 50 ml @ 100 mls/hr DAILY@09 IV 03/02/25 09:00 03/02/25 09:10 Insulin Human Regular (InsuLIN R) HS SC 03/01/25 22:00 03/01/25 22:16 Zolpidem Tartrate (Ambien) 5 mg HSPRN PRN PO FOR INSOMNIA 03/01/25 21:15 03/01/25 21:42 Review of Systems Constitutional: No symptom reported Ears, Nose, & Throat: No symptom reported Eyes: No symptom reported Neurological: No symptoms reported Pulmonary/Respiratory: No symptom reported Cardiovascular: Chest pain Gastrointestinal: Abdominal pain Genitourinary: No symptom reported Musculoskeletal: No symptom reported Skin: No symptom reported Psychiatric: No symptom reported Endocrine: No symptom reported Hemotologic/Lymphatic: No symptom reported Vital Signs Vital Signs Date Time Temp Pulse Resp B/P (MAP) Pulse Ox O2 Delivery O2 Flow Rate FiO2 03/02/25 15:00 138/72 03/02/25 13:00 97.9 61 18 96 97.9 03/02/25 08:00 Room Air* 0 21 Physical Exam GENERAL: Alert and oriented x 3. No acute distress. EYES: PERRL, EOMI. Anicteric. HENT: Moist mucous membranes. LUNGS: Clear to auscultation bilaterally. CARDIOVASCULAR: Regular rate and rhythm. ABDOMEN: Soft, nontender and nondistended. EXTREMITIES: No edema. NEUROLOGIC: No focal neurological deficits. SKIN: Warm, dry. Labs/Diagnostic Data Labs Test 03/02/25 11:11 03/02/25 06:11 03/01/25 03:09 03/01/25 00:24 Range/Units POC Glucose 182 H 70-106 mg/dl White Blood Count 4.0 #L 4.4-10.8 10^3/uL Red Blood Count 3.91 L 4.0-5.20 10^6/uL Hemoglobin 12.8 12.2-16.2 g/dL Hematocrit 36.9 36.0-46.0 % Mean Corpuscular Volume 94.4 # 80.0-100.0 fL Mean Corpuscular Hemoglobin 32.6 H 28.0-32.0 pg Mean Corpuscular Hemoglobin Concent 34.6 32.0-36.0 g/dL Red Cell Distribution Width 13.8 11.8-14.3 % Platelet Count 220 140-450 10^3/uL Mean Platelet Volume 7.8 6.9-10.8 fL Neutrophils (%) (Auto) 61.0 37.0-80.0 % Lymphocytes (%) (Auto) 29.0 10.0-50.0 % Monocytes (%) (Auto) 8.0 0.0-12.0 % Eosinophils (%) (Auto) 1.5 0.0-7.0 % Basophils (%) (Auto) 0.5 0.0-2.0 % Neutrophils # (Auto) 2.4 1.6-8.6 10 ^3/uL Lymphocytes # (Auto) 1.2 0.4-5.4 10 ^3/uL Monocytes # (Auto) 0.3 0-1.3 10 ^3/uL Eosinophils # (Auto) 0.1 0-0.8 10 ^3/uL Basophils # (Auto) 0 0-0.2 10 ^3/uL Nucleated Red Blood Cells 0.0 % Sodium Level 138 136-145 mmol/L Potassium Level 4.1 3.5-5.1 mmol/L Chloride Level 106 98-107 mmol/L Carbon Dioxide Level 25 20-31 mmol/L Anion Gap 7 5-15 Blood Urea Nitrogen 12 9-23 mg/dL Creatinine 0.62 0.550-1.02 mg/dL Glomerular Filtration Rate Calc 87 >90 mL/min BUN/Creatinine Ratio 19.4 10.0-20.0 Serum Glucose 129 H 74-106 mg/dL Calcium Level 9.1 8.7-10.4 mg/dL Total Bilirubin 0.5 0.2-1.0 mg/dL Aspartate Amino Transferase (AST) 22 13-40 U/L Alanine Aminotransferase (ALT) 15 7-40 U/L Alkaline Phosphatase 41 L 46-116 U/L Total Protein 5.6 L 5.7-8.2 g/dL Albumin 3.5 3.2-4.8 g/dL Thyroid Stimulating Hormone (TSH) 18.36 H 0.55-4.78 uIU/mL Troponin I High Sensitivity 12 </=34 ng/L Test 02/28/25 21:55 02/28/25 21:43 Range/Units Urine Color Light-yellow Yellow Urine Clarity Clear Clear Urine pH 5.0 5.0-9.0 Urine Specific [place] 1.031 1.001-1.035 Urine Protein Trace H Negative Urine Ketones Negative Negative Urine Blood Negative Negative /uL Urine Nitrite Negative Negative Urine Bilirubin Negative Negative Urine Urobilinogen Normal Negative mg/dL Urine Leukocyte Esterase Negative Negative /uL Urine RBC None seen 0 - 4 /hpf Urine Microscopic WBC 1 0-5 /HPF Urine Squamous Epithelial Cells None seen <5 /hpf Urine Bacteria None seen None Seen /hpf Urine Yeast (Budding) Occasional None Seen /hpf Urine Glucose 4+ H Normal mg/dL Prothrombin Time 10.4 9.3-11.8 sec Prothrombin Time INR 0.98 0.9-1.15 Activated Partial Thromboplast Time 24.2 L 24.5-34.5 SEC B-Type Natriuretic Peptide 21.09 0-100 pg/mL Microbiology Date/Time Source Procedure Growth Status 03/01/25 16:45 Nose MRSA Screen - Final Complete Assessment Acute chest pain. First-degree atrioventricular block. Hypertension. Dyslipidemia. Thyroid disease. Qlz-pjaknrv-axjagnypa diabetes mellitus. Cachexia. Dementia. Plan/Recommendation I agree with your ongoing assessment and care of plan. Patient has been seen by Concepcion Fernandes NP on my behalf, her and I discussed the plan with the patient. We will continue further cardiac evaluation with a transthoracic echocardiogram to evaluate cardiac function. Serial troponin levels were unremarkable and 12 lead electrocardiograms reviewed with no evidence of ischemia. At time of assessment the patient denied any further cardiac symptoms. Consider an outpatient cardiolite stress test if deemed necessary. In the setting of an unremarkable echocardiogram, there is no further cardiac workup indicated at this time. Additional plan as per the hospital course. Plan discussed with: Patient NYHA Physical activity limitations: NA Date of Service: Mar 02, 2025 Billing Provider: YOGESH JOHNSON MD Cardiology Common Codes: [id number] INP/OBS CARE (High) YOGESH JOHNSON MD Mar 02, 2025 17:02
[2025-03-03 05:00] VITALS: BP 169/76; PULSE 57; RESP 16; TEMP 98.8; O2SAT 99
[2025-03-03 08:00] VITALS: PULSE 61; PULSE 65; RESP 16; O2SAT 99
[2025-03-03 09:00] VITALS: BP 143/68; PULSE 61; RESP 16; TEMP 97.2; O2SAT 99
[2025-03-03 10:04] LABS: Hematocrit 42.6 % (36.0-46.0); Hemoglobin 14.2 g/dL (12.2-16.2); Mean Corpuscular Hemoglobin 32.2 pg (28.0-32.0); Mean Corpuscular Volume 96.3 fL (80.0-100.0); Nucleated Red Blood Cells % 0.1 %
[2025-03-03 10:10] LABS: Chloride 102 mmol/L (98-107); Potassium 4.2 mmol/L (3.5-5.1); Sodium 136 mmol/L (136-145)
[2025-03-03 10:11] LABS: Anion Gap 7 (5-15); Carbon Dioxide 27 mmol/L (20-31)
[2025-03-03 10:12] LABS: Calcium 10.2 mg/dL (8.7-10.4)
[2025-03-03 10:16] LABS: BUN/Creatinine Ratio 17.6 (10.0-20.0); Blood Urea Nitrogen 13 mg/dL (9-23)
[2025-03-03 10:17] LABS: Glucose 197 mg/dL (74-106)
--- NOTE | 2025-03-03 12:28 | DVHPN2 ---
Subjective The patient is seen and examined at bedside. Complain of severe abdominal pain. Reviewed: Care Plan, H&P, Labs, Medications, Previous Orders, Radiology Eyes: No Pain, No Vision change, No Conjunctivae inflammation, No Eyelid inflammation, No Other, No Redness ENT: No Ear pain, No Ear discharge, No Nose pain, No Nose discharge, No Nose congestion, No Mouth pain, No Mouth swelling, No Throat pain, No Throat swelling, No Other Cardiovascular: Chest Pain; No Palpitations, No Orthopnea, No Paroxysmal Noc. Dyspnea, No Edema, No Lt Headedness, No Other Respiratory: No Cough, No Dry, No Shortness of breath, No SOB with excertion, No Wheezing, No Hemoptysis, No Pleuritic Pain, No Sputum, No Other Gastrointestinal: Nausea, Vomiting, Abdominal Pain, Diarrhea; No Constipation, No Melena, No Hematochezia, No Other Genitourinary: No Dysuria, No Frequency, No Incontinence, No Hematuria, No Retention, No Other Musculoskeletal: No other, No neck pain, No shoulder pain, No arm pain, No back pain, No hand pain, No leg pain, No foot pain Skin: No Rash, No Lesions, No Jaundice, No Bruising, No Other Objective Vitals Vital Signs Date Time Temp Pulse Resp B/P (MAP) Pulse Ox O2 Delivery O2 Flow Rate FiO2 03/03/25 09:00 97.2 61 16 143/68 (93) 99 97.2 03/03/25 08:00 Room Air* 0 21 Intake/Output Intake and Output 03/03/25 06:59 Intake Total 1900 ml Balance 1900 ml Intake Oral 850 ml IV Total 1050 ml # Voids 6 # Bowel Movements 1 General Appearance: Alert, mild distress HEENT: Atraumatic, PERRLA, EOMI, Other (Mucous membranes dry) Neck: Supple Lungs: Clear to auscultation, Normal air movement Cardiovascular: Regular rate, Normal S1, Normal S2, No murmurs, Gallops, Rubs Abdomen: Normal bowel sounds, Soft Extremities: Normal pulses Neuro: Cranial nerves 3-12 NL Psych/Mental Status: Other (Dementia) Medications Current Medications Medications Dose Ordered Sig/Myles Route Start Time Stop Time Status Last Admin Dose Admin Aspirin 81 mg DAILY PO 03/01/25 10:00 03/03/25 09:54 81 MG Atorvastatin Calcium 10 mg HS PO 03/01/25 22:00 03/02/25 22:29 10 MG Levothyroxine Sodium 88 mcg QAM@0600 PO 03/01/25 06:00 03/03/25 06:22 88 MCG Ceftriaxone Sodium 50 ml @ 100 mls/hr DAILY@09 IV 03/02/25 09:00 03/02/25 09:10 100 MLS/HR Clonidine HCl 0.1 mg Q4HP PRN PO 03/01/25 01:15 03/02/25 13:51 0.1 MG Fluoxetine HCl 10 mg DAILY PO 03/01/25 10:00 03/03/25 09:54 10 MG Diagnostic Test (Pha) 1 strip ACHS 03/01/25 07:00 03/03/25 11:46 1 STRIP Insulin Human Regular HS SC 03/01/25 22:00 03/02/25 22:29 2 UNITS Insulin Human Regular AC SC 03/01/25 07:00 03/03/25 11:46 3 UNITS Dextrose 50 ml UD PRN IV 03/01/25 01:15 Sodium Chloride 1,000 ml @ 60 mls/hr [id number] IV 03/01/25 01:15 03/03/25 02:15 60 MLS/HR Acetaminophen/ Hydrocodone Bitart 1 tab Q4HP PRN PO 03/01/25 01:15 03/02/25 04:43 1 TAB Ondansetron HCl 4 mg Q4HP PRN IV 03/01/25 01:15 03/02/25 04:40 4 MG Docusate Sodium 100 mg BIDPRN PRN PO 03/01/25 01:15 Acetaminophen 500 mg Q6HP PRN PO 03/01/25 01:15 Nitroglycerin 0.4 mg Q5MINP PRN SL 03/01/25 02:00 Morphine Sulfate 2 mg Q30M PRN IV 03/01/25 02:00 Zolpidem Tartrate 5 mg HSPRN PRN PO 03/01/25 21:15 03/02/25 22:29 5 MG Laboratory Results Laboratory Tests 03/03/25 09:40 Chemistry Test 03/03/25 09:40 Calcium Level 10.2 mg/dL (8.7-10.4) Urinalysis Test 02/28/25 21:55 Urine Color Light-yellow (Yellow) Urine Clarity Clear (Clear) Urine pH 5.0 (5.0-9.0) Urine Specific [place] 1.031 (1.001-1.035) Urine Protein Trace (Negative) H Urine Ketones Negative (Negative) Urine Blood Negative /uL (Negative) Urine Nitrite Negative (Negative) Urine Bilirubin Negative (Negative) Urine Urobilinogen Normal mg/dL (Negative) Urine Leukocyte Esterase Negative /uL (Negative) Urine RBC None seen /hpf (0 - 4) Urine Microscopic WBC 1 /HPF (0-5) Urine Squamous Epithelial Cells None seen /hpf (<5) Urine Bacteria None seen /hpf (None Seen) Urine Yeast (Budding) Occasional /hpf (None Urine Glucose 4+ mg/dL (Normal) H Microbiology Microbiology Date/Time Source Procedure Growth Status 03/01/25 16:45 Nose MRSA Screen - Final Complete Assessment/Plan Assessment/Plan Acute chest pain Vomiting and diarrhea Intermediate coronary syndrome Leukocytosis, unspecified Generalized weakness Continuing current management. CT abdomen pelvis was order. Waiting for result. Continuing Zofran p.r.n. for nausea and vomiting. Continuing IV antibiotic with Rocephin. Waiting for culture. This medical document was created using an electronic medical record system with [employer] direct computerized dictation system. Although this document has been carefully reviewed, there may still be some phonetic and typographical errors. These areas are purely typographical due to imperfections of the software programs, and do not reflect any compromise in the patient's medical care. DADA MENDOZA MD Mar 03, 2025 12:28
--- NOTE | 2025-03-03 12:50 | DVHDS2 ---
Discharge Summary Date of Admission Mar 01, 2025 at 01:58 Date of Discharge: Mar 03, 2025 Admitting Diagnosis Acute chest pain Vomiting and diarrhea Intermediate coronary syndrome Leukocytosis, unspecified Generalized weakness Labs/Diagnostic Data: Laboratory Results Test 03/03/25 11:00 03/03/25 09:40 03/02/25 06:11 03/01/25 03:09 POC Glucose 197 mg/dl (70-106) White Blood Count 4.9 10^3/uL (4.4-10.8) Red Blood Count 4.43 10^6/uL (4.0-5.20) Hemoglobin 14.2 g/dL (12.2-16.2) Hematocrit 42.6 % (36.0-46.0) Mean Corpuscular Volume 96.3 fL (80.0-100.0) Mean Corpuscular Hemoglobin 32.2 pg (28.0-32.0) Mean Corpuscular Hemoglobin Concent 33.4 g/dL (32.0-36.0) Red Cell Distribution Width 14.3 % (11.8-14.3) Platelet Count 249 10^3/uL (140-450) Mean Platelet Volume 7.3 fL (6.9-10.8) Neutrophils (%) (Auto) 59.4 % (37.0-80.0) Lymphocytes (%) (Auto) 31.0 % (10.0-50.0) Monocytes (%) (Auto) 7.4 % (0.0-12.0) Eosinophils (%) (Auto) 1.6 % (0.0-7.0) Basophils (%) (Auto) 0.6 % (0.0-2.0) Neutrophils # (Auto) 2.9 10 ^3/uL (1.6-8.6) Lymphocytes # (Auto) 1.5 10 ^3/uL (0.4-5.4) Monocytes # (Auto) 0.4 10 ^3/uL (0-1.3) Eosinophils # (Auto) 0.1 10 ^3/uL (0-0.8) Basophils # (Auto) 0 10 ^3/uL (0-0.2) Nucleated Red Blood Cells 0.1 % Sodium Level 136 mmol/L (136-145) Potassium Level 4.2 mmol/L (3.5-5.1) Chloride Level 102 mmol/L (98-107) Carbon Dioxide Level 27 mmol/L (20-31) Anion Gap 7 (5-15) Blood Urea Nitrogen 13 mg/dL (9-23) Creatinine 0.74 mg/dL (0.550-1.02) Glomerular Filtration Rate Calc 79 mL/min (>90) BUN/Creatinine Ratio 17.6 (10.0-20.0) Serum Glucose 197 mg/dL (74-106) Calcium Level 10.2 mg/dL (8.7-10.4) Total Bilirubin 0.5 mg/dL (0.2-1.0) Aspartate Amino Transferase (AST) 22 U/L (13-40) Alanine Aminotransferase (ALT) 15 U/L (7-40) Alkaline Phosphatase 41 U/L (46-116) Total Protein 5.6 g/dL (5.7-8.2) Albumin 3.5 g/dL (3.2-4.8) Thyroid Stimulating Hormone (TSH) 18.36 uIU/mL (0.55-4.78) Test 03/01/25 00:24 02/28/25 21:55 02/28/25 21:43 Troponin I High Sensitivity 12 ng/L (</=34) Urine Color Light-yellow (Yellow) Urine Clarity Clear (Clear) Urine pH 5.0 (5.0-9.0) Urine Specific [place] 1.031 (1.001-1.035) Urine Protein Trace (Negative) Urine Ketones Negative (Negative) Urine Blood Negative /uL (Negative) Urine Nitrite Negative (Negative) Urine Bilirubin Negative (Negative) Urine Urobilinogen Normal mg/dL (Negative) Urine Leukocyte Esterase Negative /uL (Negative) Urine RBC None seen /hpf (0 - 4) Urine Microscopic WBC 1 /HPF (0-5) Urine Squamous Epithelial Cells None seen /hpf (<5) Urine Bacteria None seen /hpf (None Seen) Urine Yeast (Budding) Occasional /hpf (None Urine Glucose 4+ mg/dL (Normal) Prothrombin Time 10.4 sec (9.3-11.8) Prothrombin Time INR 0.98 (0.9-1.15) Activated Partial Thromboplast Time 24.2 SEC (24.5-34.5) B-Type Natriuretic Peptide 21.09 pg/mL (0-100) Other Laboratory Tests 03/03/25 09:40 Brief Hx & Hospital Course: The patient is a 84 years old female with past medical history of dementia, diabetes mellitus, thyroid disease, hyperlipidemia, and hypertension who presented to [facility] ED accompanied by son with complaint of chest pain. As reported by son, patient has been experiencing chest pain, associated with abdominal discomfort, nausea, vomiting, diarrhea, getting worse that prompted this visit. Patient was seen and evaluated in the ED, laboratory data shows WBC 13.0, platelets 304, sodium 139, potassium 3.6, BUN 13, creatinine 0.76, glucose 158, calcium 9.9, BNP 21.09, troponin 12, blood pressure 162/67, heart rate 74, temperature 97.6 F, O2 saturation 99% on room air. Chest x-ray results pending. Please see medication orders section in the computer. On my assessment, son at bedside, patient denied chest pain, no dizziness, no headache, no shortness of breaths, no diarrhea, nausea or vomiting at this moment, no fever, no chills. Patient was admitted for further evaluation and medical management. This is a 79 female with past medical history dementia, diabetes thyroid disease, hyperlipidemia, hypertension came to emergency department because of his pain. The patient was evaluated in the emergency department. Troponin level three set is negative, EKG showed no change no ST-elevation. The patient 2D echo showed normal ejection fraction. No ischemic change. Per Cardiology recommended to discharge the patient home and outpatient ischemic workup if patient condition persistent. Today the patient denied any shortness for breath. No fever, no chills no nausea, vomiting I am going to discharge him home. Advised him to follow up with primary care physician 1-2 weeks. Activity as rate. Diet per home diet. Physical exam: HEENT: Normocephalic atraumatic pupils equal react to light and accommodation. Extraocular muscles intact, conjunctiva pink, oropharynx moist, no thrush, no exudate. Lymphatic: No lymphadenopathy Cardiovascular exam: S1, S2 was heard. No murmurs, rubs, gallops Lung: Clear on auscultation bilaterally, no wheeze, rale, rhonchi. GI: Abdominal soft, nondistended, nontenderness, positive bowel sounds. Extremity: No crepitus, cyanosis, edema. Pedal pulses present bilateral. Full range of motion. Skin: Normal turgor, no rash. Psych: Alert, oriented x3. Neurology: No focal deficits, cranial nerve II to XII grossly intact. This medical document was created using an electronic medical record system with [employer] computerized dictation system. Although this document has been carefully reviewed, there may still be some phonetic and typographical errors. These areas are purely typographical due to imperfections of the software programs, and do not reflect any compromise in the patient's medical care. Condition at Discharge: Stable Final Diagnosis/Problems List Acute chest pain Vomiting and diarrhea Intermediate coronary syndrome Leukocytosis, unspecified Generalized weakness Discharge Disposition: Home Discharge Instruct/Medications Scheduled Acetaminophen (Tylenol 8 Hour Arthritis), 650 MG PO TID Alendronate Sodium (Alendronate Sodium), 1 TAB PO QWEEKLY, (Reported) Amlodipine Besylate (Norvasc Tablet), 1 TAB PO DAILY, (Reported) Amlodipine Besylate (Amlodipine Besylate), 1 TAB PO DAILY, (Reported) Atorvastatin Calcium (Lipitor), 1 TAB PO QPM, (Reported) Ciclopirox (Ciclopirox Nail Lacquer), 1 APPLIC TOP BID, (Reported) Docusate Sodium (Colace), 1 CAP PO BID Empagliflozin (Jardiance), 10 MG PO DAILY, (Reported) Fluoxetine HCl (Pmdd) (Fluoxetine HCl), 10 MG PO DAILY, (Reported) Levothyroxine Sodium (Levothyroxine Sodium), 88 MCG PO QAM, (Reported) Memantine Hydrochloride (Memantine HCl), 10 MG PO BID, (Reported) Metformin Hydrochloride (Metformin Hcl), 1 TAB PO BID, (Reported) Methylprednisolone (Medrol Dosepak), 4 MG PO UD Metronidazole (Flagyl), 1 TAB PO TID Pantoprazole Sodium Sesquihydr (Protonix), 40 MG PO DAILY, (Reported) Polyethylene Glycol 3350 (Miralax), 17 GM PO DAILY Zolpidem Tartrate (Zolpidem Tartrate), 1 TAB PO QPM, (Reported) Scheduled PRN Acetaminophen (Acetaminophen Er), 650 MG PO TIDPRN PRN Discharge Statement: "Patient was advised to return to the ER or call 911 if any headaches, dizziness, shortness of breath, chest pain, abdominal pain, bleeding, fevers, or worsening of medical condition. Patient was counseled about treatment plan, medications, possible side effects, patientverbalized understanding. All questions were answered to the best of my ability. This discharge took greater then 30 minutes in planning, reviewing documentation, counseling the patient, and discussing with other team members." ASSESSMENT ASSESSMENT Assessment Date of Service: Mar 02, 2025 Billing Provider: DADA MENDOZA MD Common Visit Codes: 45358-RKG/OBS DISCH DAY >30min DADA MENDOZA MD Mar 03, 2025 12:50
[2025-03-03] MEDS ORDERED: DOCU-94 PO (12:51)
[2025-03-03 13:00] VITALS: BP 139/72; PULSE 58; RESP 16; TEMP 97.3; O2SAT 98
[2025-03-03 17:00] VITALS: BP 123/96; PULSE 75; RESP 15; TEMP 97.3; O2SAT 98
--- NOTE | 2025-03-03 23:43 | DVHPN2 ---
Progress Note - Dictate Date Seen: Mar 03, 2025 Medical Necessity Reason Pt with a Central, PICC or Fol: No Subjective Patient was seen and evaluated in follow up. No overnight events. Patietn on room air. She denies any complaints. CBC and chemistry are unremarkable. Patient is cardiac stable for discharge. Telemetry reviewed. vital signs Vital Sign Date Time Temp Pulse Resp B/P (MAP) Pulse Ox O2 Delivery O2 Flow Rate FiO2 03/03/25 17:00 97.3 75 15 123/96 (105) 98 97.3 03/03/25 08:00 Room Air* 0 21 Total Intake and Output 03/02/25 03/02/25 03/03/25 15:00 23:00 07:00 Intake Total 50 ml 550 ml 1300 ml Balance 50 ml 550 ml 1300 ml objective GENERAL: Alert and oriented x 3. No acute distress. EYES: PERRL, EOMI. Anicteric. HENT: Moist mucous membranes. LUNGS: Clear to auscultation bilaterally. CARDIOVASCULAR: Regular rate and rhythm. ABDOMEN: Soft, nontender and nondistended. EXTREMITIES: No edema. NEUROLOGIC: No focal neurological deficits. SKIN: Warm, dry. laboratory and microbiology Laboratory Tests 03/03/25 09:40 Test 03/03/25 09:40 Range/Units Serum Glucose 197 H 74-106 mg/dL Problem List Acute chest pain. First-degree atrioventricular block. Hypertension. Dyslipidemia. Thyroid disease. [id number] diabetes mellitus. Cachexia. Dementia. Assessment/Plan Continued all current supportive medical care. [place] for pain. Aspirin, Lipitor. IV antibiotics. Nitro SL. Additional plan as per the hospital course. Plan discussed with: Patient YOGESH JOHNSON MD Mar 03, 2025 23:43
--- NOTE | 2025-03-04 11:06 | DVHSR ---
APPROVED REPORT EXAM: Two-dimensional and M-mode echocardiogram with Doppler and color Doppler. Blood Pressure: 152/79 mmHg INDICATION Chest Pain RISK FACTORS Height: 5'2", Weight: 94 DIMENSIONS LVDd3.4 (3.8-5.7cm)LA (2D)2.8 (1.9-4.0cm)Aortic Root3.1 (2.0-3.7cm) LVDs2.4 (2.5-4.0cm)LA (MM) (1.9-4.0cm)Aortic Cusp Exc1.4 (1.5-2.0cm) EF (%) 60.0 (55-70%)Rt. Atrium3.3 (1.9-4.0cm)Asc. Aorta cm IVSd1.1 (0.7-1.1cm)RV (D) (1.8-2.4cm) PWd0.8 (0.7-1.1cm) Mitral Valve MitralMitral Stenosis E wave0.70m/sMV Mean GR.mmHg A wave0.97m/sMV Peak GR.mmHg E/A ratio0.72D MVAcm2 DECEL [id number] 1/2 Timems Aortic Valve Aortic ValveAortic Stenosis V10.88m/Lorraine Mean GR.3mmHg V21.11m/Lorraine Peak GR.5mmHg LVOT Diameter1.7 (1.8-2.4cm)Doppler AVA1.80cm2 Other Information Quality : Technically LimitedRhythm : Technically limited study due to body habitus. Conclusion LVEF 55-60%, mild diastolic dysfunction Aortic valve not well visualized, likely mild aortic stenosis
--- NOTE | 2025-03-04 17:27 | ECG ---
[facility] Test Date: 2025-02-28 Test Time: 21:54:05 Pat Name: HAILEE MEJIA Department: er Room: 0220T A Gender: F Certified Indoor Environmentalist: livier : 1940 Requested By: DURGA FARRIS Order Number: [id number] Reading MD: Fred Aguilar Measurements Intervals [place] Rate: 72 P: -86 [place]: 218 QRS: 79 QRSD: 97 T: 72 QT: 500 QTc: 548 Interpretive Statements Sinus or ectopic atrial rhythm Borderline prolonged [place] interval Borderline T wave abnormalities Prolonged QT interval Electronically Signed On 03-05-2025 15:48:25 PDT by Fred Aguilar Please click the below link to view image of tracing.
--- NOTE | 2025-03-04 17:27 | ECG ---
[facility] Test Date: 2025-02-28 Test Time: 21:53:31 Pat Name: HAILEE MEJIA Department: er Room: 0220T A Gender: F Certified Financial Planner: livier : 1940 Requested By: DURGA FARRIS Order Number: [id number] Reading MD: Fred Aguilar Measurements Intervals [place] Rate: 72 P: 258 AR: 219 QRS: 82 QRSD: 90 T: 87 QT: 487 QTc: 534 Interpretive Statements Sinus or ectopic atrial rhythm Atrial premature complex Borderline prolonged AR interval Borderline right axis deviation Nonspecific T abnormalities, lateral leads Prolonged QT interval Electronically Signed On 03-05-2025 15:48:20 PDT by Fred Aguilar Please click the below link to view image of tracing.
== END 2025-03-03 18:00 | disposition home or self-care (01) | DRG 309 ==
LOC: ER 21:28 → OVERFLOW 03-01 01:58 → TELE-CENTR 03-01 16:35
PROVIDERS: ADMIT Internal Medicine; ATTEND Internal Medicine
DX: I44.0 Atrioventricular block, first degree (principal); I20.0 Unstable angina; R64 Cachexia; Z68.1 Body mass index [BMI] 19.9 or less, adult; D72.829 Elevated white blood cell count, unspecified; E78.5 Hyperlipidemia, unspecified; F03.90 Unspecified dementia, unspecified severity, without behavioral disturbance, psychotic disturbance, mood disturbance, and anxiety; E07.9 Disorder of thyroid, unspecified; I10 Essential (primary) hypertension; M81.0 Age-related osteoporosis without current pathological fracture; E11.9 Type 2 diabetes mellitus without complications; Z79.84 Long term (current) use of oral hypoglycemic drugs; Z79.899 Other long term (current) drug therapy
CPT/HCPCS: 36415; 71045; 74176; 80048; 80053; 81001; 82962; 83880; 84443; 84484; 85025; 85610; 85730; 87081; 93005; 93306; 96374; 99291; G0378; J1815; J2405

== ENCOUNTER 2025-04-26 10:31 | Inpatient (IN) | payer MEDICARE, OTHER ==
[~2025-04-26] VITALS: Ht 154.9 cm; Wt 44.9 kg
[~2025-04-26 10:31] MED LIST changes: +AML5T PO; +AMLO1TAB21 PO; +DOCU-94 PO; +PANT40TA2 PO
--- NOTE | 2025-04-26 11:05 | ED.PDOC ---
GI ASSESSMENT HPI Comments This is a 84 year-old female with a PMHX of Gastritis, Hyperlipidemia, HTN, DM, and Dementia, accompanied by son, who presents to the ED with a chief complaint of L sided abdominal pain for X2 weeks, worsening over the past X3 days. Patient reports additional symptoms of bladder pain as of recently. Patient states abdominal pain is a 7/10, intermittent, non-radiating, with no associated relieving factors. Patient reports no BM for days, with no relief while taking Miralax. Pt has no further complaints or modifying factors at this time. Pt otherwise denies chest pain, dysuria, hematuria, blood streaked stool, N/V/D, fever, or chills. Chief Complaint: Abdominal Pain Time Seen by MD: 10:53 Primary Care Provider: Dr. Valdes Reviewed Notes: Nurses Notes, Medications, Allergies Allergies: Coded Allergies: NO KNOWN ALLERGIES (Unverified , 04/10/24) Home Meds Active Scripts Docusate Sodium (Colace) 100 Mg Cap, 1 CAP PO BID, #60 CAP 2 Refills Prov:DADA MENDOZA MD 03/03/25 Polyethylene Glycol 3350 (Miralax) 17 Gm Pow, 17 GM PO DAILY for 5 Days, #5 POW Prov:ANTONY LOBATO MD 02/27/25 Acetaminophen (Acetaminophen Er) 650 Mg Tab, 650 MG PO TIDPRN PRN for 5 Days, #15 TAB Prov:ANTONY LOBATO MD 02/27/25 Methylprednisolone (Medrol Dosepak) 4 Mg Farhan, 4 MG PO UD, #21 TAB UAD Prov:LUIZ MOORE NP 02/20/25 Metronidazole (Flagyl) 500 Mg Tab, 1 TAB PO TID for 5 Days, #15 TAB Prov:LUIZ MOORE NP 02/20/25 Acetaminophen (Tylenol 8 Hour Arthritis) 650 Mg Tab, 650 MG PO TID, #30 TAB Prov:HARSH GRACE 06/29/24 Reported Medications Pantoprazole Sodium Sesquihydr (Protonix) 40 Mg Tab, 40 MG PO DAILY, #30 TAB 03/01/25 Amlodipine Besylate (Amlodipine Besylate) 2.5 Mg Tab, 1 TAB PO DAILY, #30 TAB 5 Refills 03/01/25 Amlodipine Besylate (NORVASC TABLET) 5 Mg Tb, 1 TAB PO DAILY, #30 TAB 5 Refills 03/01/25 Fluoxetine HCl (Pmdd) (Fluoxetine HCl) 10 Mg Tab, 10 MG PO DAILY, TAB 02/17/25 Levothyroxine Sodium (Levothyroxine Sodium) 88 Mcg Tab, 88 MCG PO QAM for 30 Days, MCG 02/17/25 Empagliflozin (Jardiance) 10 Mg Tab, 10 MG PO DAILY, TAB 02/17/25 Memantine Hydrochloride (Memantine HCl) 10 Mg Tab, 10 MG PO BID, TAB 02/17/25 Metformin Hydrochloride (Metformin Hcl) 500 Mg Tab, 1 TAB PO BID, #60 TAB 3 Refills 02/12/25 Atorvastatin Calcium (Lipitor) 10 Mg Tab, 1 TAB PO QPM, #90 TAB 1 Refill 02/12/25 Zolpidem Tartrate (Zolpidem Tartrate) 5 Mg Tab, 1 TAB PO QPM, #30 TAB 2 Refills 02/12/25 Ciclopirox (Ciclopirox Nail Lacquer) 8 % [place], 1 APPLIC TOP BID, #6.6 ML 6 Refills 02/12/25 Alendronate Sodium (Alendronate Sodium) 35 Mg Tab, 1 TAB PO QWEEKLY, #4 TAB 11 Refills 02/12/25 Information Source: Patient, Relative (Child) Mode of Arrival: Ambulatory Timing: Weeks Duration: Since onset Prehospital treatment: None Severity: Moderate Recent Hx of: None Pain Location: LUQ, LLQ Associated sign and symptoms: Abdominal Pain Past Medical History PAST MEDICAL HISTORY: Dementia, DM, High Lipids, HTN, Thyroid Past Medical History (Other): Gastritis Surgical History: Denies all surgeries HEEL 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 Family History Family History: Reviewed,noncontributory to illness, No family hx of Cancer, No family hx of DM, No family hx of Heart balwinder, No family hx of HTN, No family hx ofKidney balwinder, No family hx of Liver balwinder, No family hx of Lung balwinder, No family hx of Stroke Social History Smoker: Non-Smoker Alcohol: Denies ETOH Use Drugs: Denies Drug Use Lives In: Home Constitutional: denies: chills, diaphoresis, fatigue, fever, malaise, sweats, weakness, others EENTM: denies: blurred vision, double vision, ear bleeding, ear discharge, ear drainage, ear pain, ear ringing, eye pain, eye redness, hearing loss, mouth pain, mouth swelling, nasal discharge, nose bleeding, nose congestion, nose pain, photophobia, tearing, throat pain, throat swelling, voice changes, others Respiratory: denies: cough, hemoptysis, orthopnea, SOB at rest, shortness of breath, SOB with excertion, stridor, wheezing, others Cardiovascular: denies: chest pain, dizzy spells, diaphoresis, Dyspnea on exertion, edema, irregular heart beat, left arm pain, lightheadedness, palpitations, PND, syncope, others Gastrointestinal: reports: abdominal pain; denies: abdomen distended, blood streaked bowels, constipated, diarrhea, dysphagia, difficulty swallowing, hematemesis, melena, nausea, poor appetite, poor fluid intake, rectal bleeding, rectal pain, vomiting, others Genitourinary: reports: others (pelvic pain ); denies: abnormal vagina bleeding, burning, dyspareunia, dysuria, flank pain, frequency, hematuria, incontinence, pain, , vagina discharge, urgency Neurological: denies: dizziness, fainting, headache, left sided numbness, left sided weakness, numbness, paresthesia, pre-existing deficit, right sided numbness, right sided weakness, seizure, speech problems, tingling, tremors, weakness, others Musculoskeletal: denies: back pain, gout, joint pain, joint swelling, muscle pain, muscle stiffness, neck pain, others Integumetry: denies: bruises, change in color, change in hair/nails, dryness, laceration, lesions, lumps, rash, wounds, others Allergic/Immunocompromised: denies: Difficulty Healing, Frequent Infections, Hives, Itching, others Hematologic/Lymphatic: denies: anemia, blood clots, easy bleeding, easy bruising, swollen glands, others Endocrine: denies: excessive hunger, excessive sweating, excessive thirst, excessive urination, flushing, intolerance to cold, intolerance to heat, unexplained weight gain, unexplained weight loss, others Psychiatric: denies: anxiety, bipolar disorder, depression, hopeless, panic disorder, schizophrenia, sleepless, suicidal, others All Other Systems: Reviewed and Negative Physical Exam General Appearance: Moderate Distress HEENT: Normal ENT Inspection, Pharynx Normal, TMs Normal Neck: Full Range of Motion, Non-Tender, Normal, Normal Inspection Respiratory: Chest Non-Tender, Lungs Clear, No Accessory Muscle Use, No Respiratory Distress, Normal Breath Sounds Cardiovascular: No Edema, No JVD, No Murmur, No Gallop, Normal Peripheral Pulses, Regular Rate/Rhythm Breast Exam: Deferred Gastrointestinal: No Organomegaly, Non Tender, No Pulsatile Mass, Normal Bowel Sounds, Soft Genitalia: Deferred Pelvic: Deferred Rectal: Deferred Extremities: No calf tenderness, Normal capillary refill, Normal inspection, Normal range of motion, Non-tender, No pedal edema Musculoskeletal : Apperance: Normal Neurologic: Alert, order tracer II-XII nml as Tested, No Motor Deficits, Normal Affect, Normal Mood, No Sensory Deficits Cerebellar Function: Normal Reflexes: Normal Skin: Dry, Normal Color, Warm Peripheral Pulses: 3+ Radial (R), 3+ Radial (L) Lymphatic: No Adenopathy Was a procedure done? Was a procedure done?: No GI differential Dx Differential Diagnosis: Constipation, Diverticular disease, Esophagitis, Gastritis/PUD, Gastroenteritis, Dehydration, Food Poisoning, Bacterial, Parasitic, Viral X-Ray, Labs, Meds, VS Vital Signs Date Time Temp Pulse Resp B/P (MAP) Pulse Ox O2 Delivery O2 Flow Rate FiO2 04/26/25 10:37 97.3 63 18 136/60 98 97.3 Lab Test 04/26/25 11:21 Range/Units White Blood Count Pending Red Blood Count Pending Hemoglobin Pending Hematocrit Pending Mean Corpuscular Volume Pending Mean Corpuscular Hemoglobin Pending Mean Corpuscular Hemoglobin Concent Pending Red Cell Distribution Width Pending Platelet Count Pending Mean Platelet Volume Pending Neutrophils (%) (Auto) Pending Lymphocytes (%) (Auto) Pending Monocytes (%) (Auto) Pending Basophils (%) (Auto) Pending Neutrophils # (Auto) Pending Lymphocytes # (Auto) Pending Monocytes # (Auto) Pending Sodium Level Pending Potassium Level Pending Chloride Level Pending Carbon Dioxide Level Pending Anion Gap Pending Blood Urea Nitrogen Pending Creatinine Pending Glomerular Filtration Rate Calc Pending BUN/Creatinine Ratio Pending Serum Glucose Pending Calcium Level Pending Patient alert. Complaining of abdominal pain. Has a had similar pain in the past. Vitals stable. History of proctitis. Tender abdomen. Explained to the patient. Continue monitoring. Images Reviewed?: Images reviewed and evaluated by me Time of 1ST Reevaluation: 11:38 Reevaluation 1ST: Unchanged Patient Education/Counseling: Diagnosis, Treatment Family Education/Counseling: Diagnosis, Treatment Medical Screening: No EMC Exist At This Time SEPSIS Sepsis Screen Date sepsis recognized/suspect: Apr 26, 2025 Time Sepsis recognized/suspect: 1030 Recent Procedure: No Respiratory Rate >20: No Heart Rate >90: No Temp<36 C (96.8 F) or >38.3 C: No SBP <90 or MAP <65 mmHG: No New Acute Mental Status Change: No Is the patient on CPAP, BIPAP,: No Physician Orders Complete Blood Count (04/26/25 10:56) Urinalysis (04/26/25 10:56) Ct Ab Pel Wo Con-No Oral Or Iv (04/26/25 10:56) Basic Metabolic Panel (04/26/25 10:56) Vital Signs Date Time Temp Pulse Resp B/P (MAP) Pulse Ox O2 Delivery O2 Flow Rate FiO2 04/26/25 10:37 97.3 63 18 136/60 98 97.3 Laboratory Tests Test 04/26/25 11:21 White Blood Count Pending Departure 1 Departure Time of Disposition: 11:35 Impression: Primary Impression: Acute abdominal pain Disposition: ADMITTED INPATIENT Admit to: Med Surg Condition: Guarded Critical Care Note Critical Care Time?: No Stability Stability form required: No Heart Score Heart Score: Heart Score Response (Comments) Value History N/A 0 EKG N/A 0 Age N/A 0 Risk Factors N/A 0 Troponin N/A 0 Total 0 I personally scribed for FIDELIA RAMIREZ MD ([email or web address]) on 04/26/25 at 11:05. Electronically submitted by Marilu Ford ([email or web address]). FIDELIA RAMIREZ MD Apr 26, 2025 11:05
[2025-04-26 11:29] LABS: Hematocrit 35.0 % (36.0-46.0); Hemoglobin 11.9 g/dL (12.2-16.2); Mean Corpuscular Hemoglobin 32.2 pg (28.0-32.0); Mean Corpuscular Volume 94.4 fL (80.0-100.0); Nucleated Red Blood Cells % 0.1 %
[2025-04-26 11:36] LABS: Chloride 103 mmol/L (98-107); Potassium 4.9 mmol/L (3.5-5.1); Sodium 138 mmol/L (136-145)
[2025-04-26 11:37] LABS: Anion Gap 7 (5-15); Carbon Dioxide 28 mmol/L (20-31)
[2025-04-26 11:38] LABS: Calcium 8.8 mg/dL (8.7-10.4)
[2025-04-26 11:43] LABS: BUN/Creatinine Ratio 11.1 (10.0-20.0); Blood Urea Nitrogen 10 mg/dL (9-23)
[2025-04-26 11:44] LABS: Glucose 136 mg/dL (74-106)
--- NOTE | 2025-04-26 11:53 | DVH ---
CLINICAL INFORMATION: Proctitis. TECHNIQUE: Axial CT images of the abdomen and pelvis were obtained without IV contrast. Coronal and s agittal reformatted images were obtained, reviewed, and stored. Evaluation of the parenchymal organs is limited without IV contrast. Evaluation of the bowel and mesentery is limited without oral contras t. All CT scans at this medical facility are performed using dose modulation techniques as appropriat e to a performed exam including the following: Automated exposure control was utilized; adjustment of the MA and/or KV according to patient size; and use of iterative reconstruction technique. CTDIvol = 5.21 mGy DLP = 274.26 mGy-cm COMPARISON: CT CT AB PEL WO CON-NO ORAL OR IV on DOS: 03/02/25, CT CT AB PEL WITH IV CON ONLY on DOS: 02/27/25, US PELVIC on DOS: 02/15/25 FINDINGS: Motion limited study. Lung bases: Lung bases are clear. Liver: Grossly unremarkable given the limitations of the examination. Biliary: Cholecystectomy. Spleen: Grossly unremarkable. Pancreas: Grossly unremarkable given the limitations of the exam. Adrenal glands: Unremarkable. No mass. Kidneys: No hydronephrosis. No renal or ureteral calculi. Aorta/Vascular: Moderate atherosclerotic calcification. No abdominal aortic aneurysm. Retroperitoneum: No mass or lymphadenopathy. Bowel/mesentery: Nonspecific nondilated fluid-filled small bowel loops. No small bowel obstruction. N o evidence of free air or free fluid. Appendix is not visualized. Moderate stool in the colon. Questi onable minimal stranding adjacent to the rectum, may correlate with reported clinical history of proc titis. Pelvic organs: Grossly unremarkable. Bladder: Unremarkable. No mass. Abdominal wall: No mass or hernia. Bones: No acute fracture or suspicious intraosseous lesion. IMPRESSION: 1. Motion limited study. 2. Nonspecific nondilated fluid-filled small bowel loops. Findings may be seen with ileus or enteriti s in the appropriate clinical setting. No small bowel obstruction. 3. Moderate stool throughout the colon. Questionable minimal stranding adjacent to the rectum, possi sebastien correlating with reported clinical history of proctitis. 4. Additional findings as described above.
--- NOTE | 2025-04-26 17:16 | DVHHP2 ---
History of Present Illness History of Present Illness 84 year-old female with a PMHX of Gastritis, Hyperlipidemia, HTN, DM, and Dementia, accompanied by son, who presents to the ED with a chief complaint of L sided abdominal pain for X2 weeks, worsening over the past X3 days. Patient reports additional symptoms of bladder pain as of recently. Patient states abdominal pain is a 7/10, intermittent, non-radiating, with no associated relieving factors. Patient reports no BM for days, with no relief while taking Miralax. Pt has no further complaints or modifying factors at this time. Pt otherwise denies chest pain, dysuria, hematuria, blood streaked stool, N/V/D, fever, or chills. This is patient's 2nd episode of acute onset lower abdominal pain with similar findings. Review of Systems Constitutional: No: Fever, Chills, Sweats, Weakness, Malaise, Other Respiratory: No: Cough, Dry, Shortness of breath, SOB with excertion, Wheezing, Hemoptysis, Pleuritic Pain, Sputum, Wheezing, Other Cardiovascular: No: Chest Pain, Palpitations, Orthopnea, Paroxysmal Noc. Dyspnea, Edema, Lt Headedness, Other Gastrointestinal: Nausea, Abdominal Pain, Constipation; No: Vomiting, Diarrhea, Melena, Hematochezia, Other Neurological: No: Weakness, Numbness, Incoordination, Change in speech, Confusion, Seizures, Other Allergies: Coded Allergies: NO KNOWN ALLERGIES (Unverified , 04/10/24) Exam Vital Signs Vital Signs Date Time Temp Pulse Resp B/P (MAP) Pulse Ox O2 Delivery O2 Flow Rate FiO2 04/26/25 10:37 97.3 63 18 136/60 98 97.3 Exam GEN: Healthy appearing, well-developed, NAD. HEENT: NC/AT; MMM. CV: RRR, no m/r/g. LUNGS: CTAB, no w/r/c. ABD: Infraumbilical, adnexal tenderness to palpation, hypoactive bowel sounds, EXT: skin Warm, well perfused. no rashes. No clubbing, cyanosis, or edema. NEURO: Ambulating with no limitations. No focal deficits. Labs/Xrays Labs Test 04/26/25 11:21 Range/Units White Blood Count 3.6 L 4.4-10.8 10^3/uL Red Blood Count 3.71 L 4.0-5.20 10^6/uL Hemoglobin 11.9 L 12.2-16.2 g/dL Hematocrit 35.0 L 36.0-46.0 % Mean Corpuscular Volume 94.4 80.0-100.0 fL Mean Corpuscular Hemoglobin 32.2 H 28.0-32.0 pg Mean Corpuscular Hemoglobin Concent 34.1 32.0-36.0 g/dL Red Cell Distribution Width 13.6 11.8-14.3 % Platelet Count 167 140-450 10^3/uL Mean Platelet Volume 8.2 6.9-10.8 fL Neutrophils (%) (Auto) 55.2 37.0-80.0 % Lymphocytes (%) (Auto) 31.2 10.0-50.0 % Monocytes (%) (Auto) 7.8 0.0-12.0 % Eosinophils (%) (Auto) 5.1 0.0-7.0 % Basophils (%) (Auto) 0.7 0.0-2.0 % Neutrophils # (Auto) 2.0 1.6-8.6 10 ^3/uL Lymphocytes # (Auto) 1.1 0.4-5.4 10 ^3/uL Monocytes # (Auto) 0.3 0-1.3 10 ^3/uL Eosinophils # (Auto) 0.2 0-0.8 10 ^3/uL Basophils # (Auto) 0 0-0.2 10 ^3/uL Nucleated Red Blood Cells 0.1 % Sodium Level 138 136-145 mmol/L Potassium Level 4.9 3.5-5.1 mmol/L Chloride Level 103 98-107 mmol/L Carbon Dioxide Level 28 20-31 mmol/L Anion Gap 7 5-15 Blood Urea Nitrogen 10 9-23 mg/dL Creatinine 0.90 0.550-1.02 mg/dL Glomerular Filtration Rate Calc 63 >90 mL/min BUN/Creatinine Ratio 11.1 10.0-20.0 Serum Glucose 136 H 74-106 mg/dL Calcium Level 8.8 8.7-10.4 mg/dL SEPSIS Sepsis Screen Date sepsis recognized/suspect: Apr 26, 2025 Time Sepsis recognized/suspect: 103 Recent Procedure: No Respiratory Rate >20: No Heart Rate >90: No Temp<36 C (96.8 F) or >38.3 C: No SBP <90 or MAP <65 mmHG: No New Acute Mental Status Change: No Is the patient on CPAP, BIPAP,: No Physician Orders Urinalysis (04/26/25 10:56) Ct Ab Pel Wo Con-No Oral Or Iv (04/26/25 10:56) Vital Signs Date Time Temp Pulse Resp B/P (MAP) Pulse Ox O2 Delivery O2 Flow Rate FiO2 04/26/25 10:37 97.3 63 18 136/60 98 97.3 Laboratory Tests Test 04/26/25 11:21 White Blood Count 3.6 10^3/uL (4.4-10.8) L Assessment/Plan Assessment/Plan 04/26: Patient mentioned speaking only, son used for translation, Patient recurrent adnexal low abdominal pain, CT evidence of ileus/enteritis. Patient has significant pain, we will give Toradol Solu-Medrol IV antibiotics, clear liquid diet Diagnosis Acute gastroenteritis, infectious etiology likely Ileus Enteritis History of gastritis Hyperlipidemia Hypertension Diabetes Dementia Plan: Analgesia prn Antiemetic prn Solu-Medrol 40 X 1 IV antibiotics Clear liquid diet Med surge Full code Plan discussed with: Son Date of Service: Apr 26, 2025 Billing Provider: SAMM CASTILLO MD Common Visit Codes: [id number] INP/OBS CARE (HIGH) Secondary Visit Codes: [id number] CARE PLAN 30 MINUTES SAMM CASTILLO MD Apr 26, 2025 17:16
[2025-04-26] MEDS ORDERED: ONDANSETRON HCL 4 MG/2 ML VIAL IV PRN (17:45)
[2025-04-26] MEDS ORDERED: MORPHINE SULFATE INJ 2 MG/ml SYRG IV PRN (17:45)
[2025-04-26] MEDS ORDERED: HYDROcodone-ACET 5/325MG TAB PO PRN (17:45)
[2025-04-26] MEDS: HYDROcodone-ACET 5/325MG TAB PO PRN (20:45)
[2025-04-26] MEDS: KETOROLAC TROMETH 30 MG/ML 1ML VIAL IV ONE (21:24)
[2025-04-26] MEDS: PANTOPRAZOLE 40 MG/10 ML VIAL INJ IV ONE (21:30)
[2025-04-26] MEDS: methylPREDNISolone SOD SUCC 125 MG/2 ML VL IV ONE (21:32)
[2025-04-26] MEDS: ZOLPIDEM TARTRATE 5 MG TAB PO SCH (21:33)
[2025-04-26] MEDS: ATORVASTATIN 20 MG TAB PO SCH (21:34)
[2025-04-26 21:45] VITALS: BP 157/60; PULSE 69; RESP 15; TEMP 98.5; O2SAT 98
[2025-04-27] VITALS (10 sets, daily range): BP systolic 129–155; BP diastolic 53–76; PULSE 50–141; RESP 16–20; TEMP 96.2–98.8; O2SAT 95–100
[2025-04-27] MEDS: MEMANTINE HCL 5 MG TAB PO SCH (01:16)
[2025-04-27 06:16] LABS: Hematocrit 38.6 % (36.0-46.0); Hemoglobin 13.2 g/dL (12.2-16.2); Mean Corpuscular Hemoglobin 32.4 pg (28.0-32.0); Mean Corpuscular Volume 94.9 fL (80.0-100.0); Nucleated Red Blood Cells % 0.1 %
[2025-04-27 06:36] LABS: Alanine Aminotransferase 11 U/L (7-40); Albumin 3.7 g/dL (3.2-4.8); Alkaline Phosphatase 46 U/L (46-116); Anion Gap 8 (5-15); BUN/Creatinine Ratio 12.0 (10.0-20.0); Blood Urea Nitrogen 11 mg/dL (9-23); Calcium 9.3 mg/dL (8.7-10.4); Carbon Dioxide 26 mmol/L (20-31); Chloride 104 mmol/L (98-107); Sodium 138 mmol/L (136-145); Total Protein 6.3 g/dL (5.7-8.2)
[2025-04-27 06:37] LABS: Bilirubin, Total 0.4 mg/dL (0.2-1.0)
[2025-04-27] MEDS: LEVOTHYROXINE SODIUM 88 MCG TAB PO SCH (06:47)
[2025-04-27 07:35] LABS: Glucose 178 mg/dL (74-106)
[2025-04-27 07:38] LABS: Potassium 5.8 mmol/L (3.5-5.1)
[2025-04-27] MEDS: PANTOPRAZOLE 40 MG/10 ML VIAL INJ IV SCH (09:18)
[2025-04-27] MEDS: ENOXAPARIN SOD 30 MG/0.3 ML SYRINGE SC SCH (09:21)
[2025-04-27] MEDS: SODIUM ZIRCONIUM CYCL 10 GM PAK PO ONE (10:07)
[2025-04-27] MEDS ORDERED: ALBUTEROL SULF 2.5 MG/0.5ML(0.5%) NEB SOLN ONE (10:18)
[2025-04-27] MEDS: ALBUTEROL SULF 2.5 MG/0.5ML(0.5%) NEB SOLN NEB ONE (10:19)
--- NOTE | 2025-04-27 10:19 | DVHPN2 ---
Subjective Patient is seen at bedside today, symptoms improving doing well. Reviewed: H&P Changes from previous H/P or p: No Changes General: Per HPI Cardiovascular: No Chest Pain, No Palpitations, No Orthopnea, No Paroxysmal Noc. Dyspnea, No Edema, No Lt Headedness, No Other Respiratory: No Cough, No Dry, No Shortness of breath, No SOB with excertion, No Wheezing, No Hemoptysis, No Pleuritic Pain, No Sputum, No Other Gastrointestinal: Nausea; No Vomiting; Abdominal Pain; No Diarrhea; C onstipation; No Melena, No Hematochezia, No Other Objective Vitals Vital Signs Date Time Temp Pulse Resp B/P (MAP) Pulse Ox O2 Delivery O2 Flow Rate FiO2 04/27/25 09:20 129/53 04/27/25 09:00 97.3 50 16 96 97.3 04/27/25 00:57 Room Air* 0 21 Intake/Output Intake and Output 04/27/25 07:00 Intake Total 540 ml Balance 540 ml Intake Oral 240 ml IV Total 300 ml # Voids 1 Exam GEN: Healthy appearing, well-developed, NAD. HEENT: NC/AT; MMM. CV: RRR, no m/r/g. LUNGS: CTAB, no w/r/c. ABD: Infraumbilical, adnexal tenderness to palpation, hypoactive bowel sounds, EXT: skin Warm, well perfused. no rashes. No clubbing, cyanosis, or edema. NEURO: Ambulating with no limitations. No focal deficits. Medications Current Medications Medications Dose Ordered Sig/Myles Route Start Time Stop Time Status Last Admin Dose Admin Ondansetron HCl 4 mg Q4HP PRN IV 04/26/25 17:45 Enoxaparin Sodium 30 mg DAILY SC 04/27/25 10:00 04/27/25 09:21 30 MG Acetaminophen 650 mg Q6HP PRN PO 04/26/25 17:45 Morphine Sulfate 2 mg Q4HPRN PRN IV 04/26/25 17:45 Ceftriaxone Sodium 50 ml @ 100 mls/hr DAILY@09 IV 04/26/25 17:45 04/27/25 09:18 100 MLS/HR Metronidazole 100 ml @ 100 mls/hr Q8HR IV 04/26/25 22:00 04/27/25 05:29 100 MLS/HR Pantoprazole Sodium 40 mg BID IV 04/27/25 10:00 04/27/25 09:18 40 MG Amlodipine Besylate 5 mg DAILY PO 04/27/25 10:00 04/27/25 09:20 5 MG Levothyroxine Sodium 88 mcg QAM PO 04/27/25 07:00 04/27/25 06:47 88 MCG Zolpidem Tartrate 5 mg HS PO 04/26/25 22:00 04/26/25 21:33 5 MG Atorvastatin Calcium 10 mg HS PO 04/26/25 22:00 04/26/25 21:34 10 MG Fluoxetine HCl 10 mg DAILY PO 04/27/25 10:00 04/27/25 09:20 10 MG Memantine 10 mg BID PO 04/26/25 22:00 04/27/25 09:19 10 MG Acetaminophen/ Hydrocodone Bitart 1 tab Q4HP PRN PO 04/26/25 20:30 04/26/25 20:45 1 TAB Laboratory Results Laboratory Tests 04/27/25 05:31 Chemistry Test 04/26/25 11:21 04/27/25 05:31 Calcium Level 8.8 mg/dL (8.7-10.4) 9.3 mg/dL (8.7-10.4) Albumin 3.7 g/dL (3.2-4.8) Total Protein 6.3 g/dL (5.7-8.2) LFT Test 04/27/25 05:31 Alanine Aminotransferase (ALT) 11 U/L (7-40) Alkaline Phosphatase 46 U/L (46-116) Aspartate Amino Transferase (AST) 15 U/L (13-40) Total Bilirubin 0.4 mg/dL (0.2-1.0) Labs and/or images reviewed: Labs reviewed by me, Image(s) reviewed by me Assessment/Plan Assessment/Plan 04/26: Patient mentioned speaking only, son used for translation, Patient recurrent adnexal low abdominal pain, CT evidence of ileus/enteritis. Patient has significant pain, we will give Toradol Solu-Medrol IV antibiotics, clear liquid diet 04/27: Patient is feeling much improved. She had colonoscopy last time she was admitted finding only polyps and no signs of colitis. IBD is less likely but still we will have GI evaluate. Yesterday given steroids in pain medications, patient is feeling much improved, had BM overnight no blood. Today we will give 20 IV Solu-Medrol, advance diet to full liquid diet, IV fluids 40 cc hour for total 1 L only,. Continue IV antibiotics SCD showed enteritis possible continue treatment. Re-evaluate tomorrow. Hyperkalemia this morning given Lokelma and giving albuterol 5 mg right now. Patient had upper endoscopy [place], we will try to get records of pathology from upper endoscopy. Diagnosis Acute gastroenteritis, infectious etiology likely Ileus Enteritis History of gastritis Hyperlipidemia Hypertension Diabetes Dementia Plan: Analgesia prn Antiemetic prn Solu-Medrol 40 X 1 IV antibiotics Clear liquid diet Med surge Full code Plan discussed with: Patient My Orders Orders - SAMM CASTILLO MD Procedure Category Date Status Time Admit ADMIT 04/26/25 Transmitted 17:39 Code Status CODE 04/26/25 Transmitted 17:39 Ondansetron Hcl PHA 04/26/25 In Process (Zofran) 17:45 Acetaminophen Tablet PHA 04/26/25 In Process (Tylenol Tablet) 17:45 Clear Liq Diet DIET 04/26/25 Transmitted Dinner Bedrest With Bathroom ORLIN 04/26/25 In Process Privileg 17:39 Morphine Sulfate PHA 04/26/25 In Process Injection 17:45 Ceftriaxone 1gm/50ml PHA 04/26/25 In Process (Rocephin) 17:45 Metronidazole PHA 04/26/25 In Process 500mg/100ml (Flagyl 22:00 * [facility] [employer] CONS 04/26/25 Transmitted 17:39 Amlodipine Tablet PHA 04/27/25 In Process (Norvasc Tablet) 10:00 Levothyroxine Tablet PHA 04/27/25 In Process (Synthroid Tablet) 07:00 Zolpidem Tartrate PHA 04/26/25 In Process (Ambien) 22:00 Atorvastatin (Lipitor) PHA 04/26/25 In Process 22:00 Fluoxetine Capsule PHA 04/27/25 In Process (Prozac Capsule) 10:00 Memantine Tablet PHA 04/26/25 In Process (Namenda Tablet) 22:00 Pantoprazole PHA 04/27/25 In Process (Protonix) 10:00 Enoxaparin Sodium PHA 04/27/25 In Process (Lovenox) 10:00 Hydrocodone-Acet PHA 04/26/25 In Process 5/325mg Tab ([place] 20:30 Date of Service: Apr 27, 2025 Billing Provider: SAMM CASTILLO MD Common Visit Codes: [id number] INP/OBS CARE(HIGH) SAMM CASTILLO MD Apr 27, 2025 10:19
--- NOTE | 2025-04-27 10:27 | DVHINCON2 ---
Date of service: Apr 27, [address] Pagan Reason for Consultation LLQ abdominal pain History of Present Illness 84 year-old female with a PMHX of Gastritis, Hyperlipidemia, HTN, DM, and Dementia, accompanied by son, who presents to the ED with a chief complaint of L sided abdominal pain for X2 weeks, worsening over the past X3 days. Patient reports additional symptoms of bladder pain as of recently. Patient states abdominal pain is a 7/10, intermittent, non-radiating, with no associated relieving factors. Patient reports no BM for days, with no relief while taking Miralax. This is patient's 2nd episode of acute onset lower abdominal pain with similar findings. Recent colonoscopy by Dr Sharif Operative Report DATE OF PROCEDURE: 02/14/25 INDICATIONS FOR THE PROCEDURE: Abdominal pain constipation history of colon polyps abnormal CAT scan possible rectal mass PROCEDURE PERFORMED: Colonoscopy and polypectomy by cold biopsy forceps Colonoscopy and biopsy mildly inflamed rectum POSTOPERATIVE DIAGNOSIS: Small sigmoid colon polyp 4 mm removed by cold biopsy forceps Small descending colon polyp 5 mm removed by cold biopsy forceps Mild proctitis biopsies taken Internal hemorrhoids Past Medical History Hypertension, hypercholesterolemia, CHF Dementia Gastritis Diabetes Anxiety depression Past Surgical History None recorded Family History: Patient reports no known family medical history. Allergies: Coded Allergies: NO KNOWN ALLERGIES (Unverified , 04/10/24) Home Meds Active Scripts Docusate Sodium (Colace) 100 Mg Cap, 1 CAP PO BID, #60 CAP 2 Refills Prov:DADA MENDOZA MD 03/03/25 Polyethylene Glycol 3350 (Miralax) 17 Gm Pow, 17 GM PO DAILY for 5 Days, #5 POW Prov:ANTONY LOBATO MD 02/27/25 Acetaminophen (Acetaminophen Er) 650 Mg Tab, 650 MG PO TIDPRN PRN for 5 Days, #15 TAB Prov:ANTONY LOBATO MD 02/27/25 Methylprednisolone (Medrol Dosepak) 4 Mg Farhan, 4 MG PO UD, #21 TAB UAD Prov:LUIZ MOORE [employer]AVER 02/20/25 Metronidazole (Flagyl) 500 Mg Tab, 1 TAB PO TID for 5 Days, #15 TAB Prov:LUIZ MOORE [employer] WEAVER 02/20/25 Acetaminophen (Tylenol 8 Hour Arthritis) 650 Mg Tab, 650 MG PO TID, #30 TAB Prov:HARSH GRACE 06/29/24 Reported Medications Pantoprazole Sodium Sesquihydr (Protonix) 40 Mg Tab, 40 MG PO DAILY, #30 TAB 03/01/25 Amlodipine Besylate (Amlodipine Besylate) 2.5 Mg Tab, 1 TAB PO DAILY, #30 TAB 5 Refills 03/01/25 Amlodipine Besylate (NORVASC TABLET) 5 Mg Tb, 1 TAB PO DAILY, #30 TAB 5 Refills 03/01/25 Fluoxetine HCl (Pmdd) (Fluoxetine HCl) 10 Mg Tab, 10 MG PO DAILY, TAB 02/17/25 Levothyroxine Sodium (Levothyroxine Sodium) 88 Mcg Tab, 88 MCG PO QAM for 30 D ays, MCG 02/17/25 Empagliflozin (Jardiance) 10 Mg Tab, 10 MG PO DAILY, TAB 02/17/25 Memantine Hydrochloride (Memantine HCl) 10 Mg Tab, 10 MG PO BID, TAB 02/17/25 Metformin Hydrochloride (Metformin Hcl) 500 Mg Tab, 1 TAB PO BID, #60 TAB 3 Refills 02/12/25 Atorvastatin Calcium (Lipitor) 10 Mg Tab, 1 TAB PO QPM, #90 TAB 1 Refill 02/12/25 Zolpidem Tartrate (Zolpidem Tartrate) 5 Mg Tab, 1 TAB PO QPM, #30 TAB 2 Refills 02/12/25 Ciclopirox (Ciclopirox Nail Lacquer) 8 % [place], 1 APPLIC TOP BID, #6.6 ML 6 Refills 02/12/25 Alendronate Sodium (Alendronate Sodium) 35 Mg Tab, 1 TAB PO QWEEKLY, #4 TAB 11 Refills 02/12/25 Current Medications Current Medications Medications (Trade) Dose Ordered Sig/Myles Route PRN Reason Start Time Stop Time Status Last Admin Acetaminophen/ Hydrocodone Bitart ([place] 5/325MG Tab) 1 tab Q4HP PRN PO MODERATE PAIN (4-6 PAIN SCALE) 04/26/25 17:45 04/26/25 20:29 DC Ondansetron HCl (Zofran) 4 mg Q4HP PRN IV NAUSEA / VOMITING 04/26/25 17:45 Enoxaparin Sodium (Lovenox) 30 mg DAILY SC 04/27/25 10:00 04/27/25 09:21 Acetaminophen (Tylenol Tablet) 650 mg Q6HP PRN PO PAIN SCALE 1-3 OR TEMP>100.4 04/26/25 17:45 Morphine Sulfate 2 mg Q4HPRN PRN IV SEVERE PAIN (7-10 PAIN SCALE) 04/26/25 17:45 Ceftriaxone Sodium 50 ml @ 100 mls/hr DAILY@09 IV 04/26/25 17:45 04/27/25 09:18 Metronidazole 100 ml @ 100 mls/hr Q8HR IV 04/26/25 22:00 04/27/25 05:29 Pantoprazole Sodium (Protonix) 40 mg BID IV 04/27/25 10:00 04/27/25 09:18 Amlodipine Besylate (Norvasc Tablet) 5 mg DAILY PO 04/27/25 10:00 04/27/25 09:20 Levothyroxine Sodium (Synthroid Tablet) 88 mcg QAM PO 04/27/25 07:00 04/27/25 06:47 Zolpidem Tartrate (Ambien) 5 mg HS PO 04/26/25 22:00 04/26/25 21:33 Atorvastatin Calcium (Lipitor) 10 mg HS PO 04/26/25 22:00 04/26/25 21:34 Fluoxetine HCl (PROzac CAPSULE) 10 mg DAILY PO 04/27/25 10:00 04/27/25 09:20 Memantine (Namenda Tablet) 10 mg BID PO 04/26/25 22:00 04/27/25 09:19 Acetaminophen/ Hydrocodone Bitart ([place] 5/325MG Tab) 1 tab Q4HP PRN PO MODERATE PAIN (4-6 PAIN SCALE) 04/26/25 20:30 04/26/25 20:45 Vital Signs Vital Signs Date Time Temp Pulse Resp B/P (MAP) Pulse Ox O2 Delivery O2 Flow Rate FiO2 04/27/25 09:20 129/53 04/27/25 09:00 97.3 50 16 96 97.3 04/27/25 00:57 Room Air* 0 21 Physical Exam GEN: Healthy appearing, well-developed, NAD. HEENT: NC/AT; MMM. CV: RRR, no m/r/g. LUNGS: CTAB, no w/r/c. ABD: Infraumbilical, tenderness to palpation, hypoactive bowel sounds, EXT: skin Warm, well perfused. no rashes. No clubbing, cyanosis, or edema. NEURO: Ambulating with no limitations. No focal deficits. Labs/Diagnostic Data Labs Test 04/27/25 05:31 04/26/25 11:21 Range/Units White Blood Count 3.8 L 4.4-10.8 10^3/uL Red Blood Count 4.07 4.0-5.20 10^6/uL Hemoglobin 13.2 12.2-16.2 g/dL Hematocrit 38.6 # 36.0-46.0 % Mean Corpuscular Volume 94.9 80.0-100.0 fL Mean Corpuscular Hemoglobin 32.4 H 28.0-32.0 pg Mean Corpuscular Hemoglobin Concent 34.1 32.0-36.0 g/dL Red Cell Distribution Width 13.5 11.8-14.3 % Platelet Count 170 140-450 10^3/uL Mean Platelet Volume 8.8 6.9-10.8 fL Neutrophils (%) (Auto) 75.7 37.0-80.0 % Lymphocytes (%) (Auto) 22.2 10.0-50.0 % Monocytes (%) (Auto) 1.6 0.0-12.0 % Eosinophils (%) (Auto) 0.0 0.0-7.0 % Basophils (%) (Auto) 0.5 0.0-2.0 % Neutrophils # (Auto) 2.9 1.6-8.6 10 ^3/uL Lymphocytes # (Auto) 0.8 0.4-5.4 10 ^3/uL Monocytes # (Auto) 0.1 0-1.3 10 ^3/uL Eosinophils # (Auto) 0 0-0.8 10 ^3/uL Basophils # (Auto) 0 0-0.2 10 ^3/uL Nucleated Red Blood Cells 0.1 % Sodium Level 138 136-145 mmol/L Potassium Level 5.8 *H 3.5-5.1 mmol/L Chloride Level 104 98-107 mmol/L Carbon Dioxide Level 26 20-31 mmol/L Anion Gap 8 5-15 Blood Urea Nitrogen 11 9-23 mg/dL Creatinine 0.92 0.550-1.02 mg/dL Glomerular Filtration Rate Calc 61 >90 mL/min BUN/Creatinine Ratio 12.0 10.0-20.0 Serum Glucose 178 H 74-106 mg/dL Calcium Level 9.3 8.7-10.4 mg/dL Total Bilirubin 0.4 0.2-1.0 mg/dL Aspartate Amino Transferase (AST) 15 13-40 U/L Alanine Aminotransferase (ALT) 11 7-40 U/L Alkaline Phosphatase 46 46-116 U/L Total Protein 6.3 5.7-8.2 g/dL Albumin 3.7 3.2-4.8 g/dL Erythrocyte Sedimentation Rate 7 0-20 mm/hr C-Reactive Protein High Sensitivity 0.02 <1.0 mg/dL CT SCAN ABD PELVIS IMPRESSION: 1. Motion limited study. 2. Nonspecific nondilated fluid-filled small bowel loops. Findings may be seen with ileus or enteritis in the appropriate clinical setting. No small bowel obstruction. 3. Moderate stool throughout the colon. Questionable minimal stranding adjacent to the rectum, possibly correlating with reported clinical history of proctitis. 4. Additional findings as described above. Problems(with codes): (1) Acute abdominal pain (2) Generalized weakness (3) Constipation (4) Abdominal pain Plan/Recommendation PLAN Patient's symptoms are clinically improving She was treated with IV fluids and IV Solu-Medrol Patient is on IV antibiotics SCD Advance to full liquid diet Treated with Lokelma for hyperkalemia Recent endoscopy in [place], try to obtain records Protonix 40 mg daily MiraLax and stool softeners as needed Plan discussed with: Other (None) OPHELIA RODRIGUEZ MD Apr 27, 2025 10:27
[2025-04-27] MEDS: methylPREDNISolone SOD SUCC 40 MG/ML VL IV ONE (11:21)
[2025-04-27] MEDS: LACTATED RINGER'S 1,000 ML IV ONE (11:21)
[2025-04-27] MEDS ORDERED: DIVA500T13 PO (18:06)
[2025-04-27] MEDS ORDERED: DONE1TAB88 PO (18:08)
[2025-04-27] MEDS: ACETAMINOPHEN 325 MG TAB PO PRN (22:24)
[2025-04-28 01:00] VITALS: BP 150/70; PULSE 64; RESP 17; TEMP 98.4; O2SAT 100
[2025-04-28 05:00] VITALS: BP 157/67; PULSE 59; RESP 17; TEMP 98.6; O2SAT 99
[2025-04-28 06:29] LABS: Urine Protein, UAD Negative (Negative)
[2025-04-28 08:00] VITALS: PULSE 76; PULSE 91; RESP 18; O2SAT 90
[2025-04-28 10:00] VITALS: BP 147/59; PULSE 76; RESP 18; TEMP 98; O2SAT 90
--- NOTE | 2025-04-28 10:29 | DVHDS2 ---
Discharge Summary Date of Admission Apr 26, 2025 at 17:39 Date of Discharge: Apr 28, 2025 Labs/Diagnostic Data: Laboratory Results Test 04/27/25 13:04 04/27/25 05:31 04/26/25 11:21 04/26/25 05:30 Potassium Level 4.3 mmol/L (3.5-5.1) White Blood Count 3.8 10^3/uL (4.4-10.8) Red Blood Count 4.07 10^6/uL (4.0-5.20) Hemoglobin 13.2 g/dL (12.2-16.2) Hematocrit 38.6 % (36.0-46.0) Mean Corpuscular Volume 94.9 fL (80.0-100.0) Mean Corpuscular Hemoglobin 32.4 pg (28.0-32.0) Mean Corpuscular Hemoglobin Concent 34.1 g/dL (32.0-36.0) Red Cell Distribution Width 13.5 % (11.8-14.3) Platelet Count 170 10^3/uL (140-450) Mean Platelet Volume 8.8 fL (6.9-10.8) Neutrophils (%) (Auto) 75.7 % (37.0-80.0) Lymphocytes (%) (Auto) 22.2 % (10.0-50.0) Monocytes (%) (Auto) 1.6 % (0.0-12.0) Eosinophils (%) (Auto) 0.0 % (0.0-7.0) Basophils (%) (Auto) 0.5 % (0.0-2.0) Neutrophils # (Auto) 2.9 10 ^3/uL (1.6-8.6) Lymphocytes # (Auto) 0.8 10 ^3/uL (0.4-5.4) Monocytes # (Auto) 0.1 10 ^3/uL (0-1.3) Eosinophils # (Auto) 0 10 ^3/uL (0-0.8) Basophils # (Auto) 0 10 ^3/uL (0-0.2) Nucleated Red Blood Cells 0.1 % Sodium Level 138 mmol/L (136-145) Chloride Level 104 mmol/L (98-107) Carbon Dioxide Level 26 mmol/L (20-31) Anion Gap 8 (5-15) Blood Urea Nitrogen 11 mg/dL (9-23) Creatinine 0.92 mg/dL (0.550-1.02) Glomerular Filtration Rate Calc 61 mL/min (>90) BUN/Creatinine Ratio 12.0 (10.0-20.0) Serum Glucose 178 mg/dL (74-106) Calcium Level 9.3 mg/dL (8.7-10.4) Total Bilirubin 0.4 mg/dL (0.2-1.0) Aspartate Amino Transferase (AST) 15 U/L (13-40) Alanine Aminotransferase (ALT) 11 U/L (7-40) Alkaline Phosphatase 46 U/L (46-116) Total Protein 6.3 g/dL (5.7-8.2) Albumin 3.7 g/dL (3.2-4.8) Erythrocyte Sedimentation Rate 7 mm/hr (0-20) C-Reactive Protein High Sensitivity 0.02 mg/dL (<1.0) Urine Color Light-yellow (Yellow) Urine Clarity Clear (Clear) Urine pH 6.5 (5.0-9.0) Urine Specific [place] 1.009 (1.001-1.035) Urine Protein Negative (Negative) Urine Ketones Negative (Negative) Urine Blood Negative /uL (Negative) Urine Nitrite Negative (Negative) Urine Bilirubin Negative (Negative) Urine Urobilinogen Normal mg/dL (Negative) Urine Leukocyte Esterase Negative /uL (Negative) Urine RBC 1 /hpf (0 - 4) Urine Microscopic WBC 1 /HPF (0-5) Urine Squamous Epithelial Cells None seen /hpf (<5) Urine Bacteria None seen /hpf (None Seen) Urine Glucose Normal mg/dL (Normal) Other Laboratory Tests 04/27/25 13:04 04/27/25 05:31 Brief Hx & Hospital Course: 84 year-old female with a PMHX of Gastritis, Hyperlipidemia, HTN, DM, and Dementia, accompanied by son, who presents to the ED with a chief complaint of L sided abdominal pain for X2 weeks, worsening over the past X3 days. Patient reports additional symptoms of bladder pain as of recently. Patient states abdominal pain is a 7/10, intermittent, non-radiating, with no associated relieving factors. Patient reports no BM for days, with no relief while taking Miralax. Pt has no further complaints or modifying factors at this time. Pt otherwise denies chest pain, dysuria, hematuria, blood streaked stool, N/V/D, fever, or chills. This is patient's 2nd episode of acute onset lower abdominal pain with similar findings. 04/26: Patient mentioned speaking only, son used for translation, Patient recurrent adnexal low abdominal pain, CT evidence of ileus/enteritis. Patient has significant pain, we will give Toradol Solu-Medrol IV antibiotics, clear liquid diet 04/27: Patient is feeling much improved. She had colonoscopy last time she was admitted finding only polyps and no signs of colitis. IBD is less likely but still we will have GI evaluate. Yesterday given steroids in pain medications, patient is feeling much improved, had BM overnight no blood. Today we will give 20 IV Solu-Medrol, advance diet to full liquid diet, IV fluids 40 cc hour for total 1 L only,. Continue IV antibiotics SCD showed enteritis possible continue treatment. Re-evaluate tomorrow. Hyperkalemia this morning given Lokelma and giving albuterol 5 mg right now. Patient had upper endoscopy [place], we will try to get records of pathology from upper endoscopy. 04/28: Patient continues to feel good, improvement symptoms, tolerating p.o. passing gas, had bowel movement this a.m.. We are pending records from EGD duodenal biopsy from primary hvac sales engineer. Patient improved significantly with antibiotics and steroids. Likely gastroenteritis but I am questioning possible inflammatory condition and/or celiac disease/lactose intolerance. We will discharge patient with Augmentin 875 b.i.d. for 5 days, prednisone 40 mg daily for 10 day, full liquid diet 1 week then advanced, avoid gluten, avoid lactose, follow up with primary hvac sales engineer, lactulose 10 g b.i.d. 5 days, prn thereafter, docusate 100 mg twice daily 30 days. Diagnosis Sepsis due to below Acute gastroenteritis, infectious etiology likely Ileus Enteritis Leukopenia Tachypnea History of gastritis Hyperlipidemia Hypertension Diabetes Dementia Plan: Augmentin 875 b.i.d. for 5 days, prednisone 40 mg daily for 10 day, full liquid diet 1 week then advanced, avoid gluten, avoid lactose, follow up with primary hvac sales engineer, lactulose 10 g b.i.d. 5 days, prn thereafter, docusate 100 mg twice daily 30 days Follow up with PCP to review discharge Condition at Discharge: Fair Final Diagnosis/Problems List Sepsis due to below Acute gastroenteritis, infectious etiology likely Ileus Enteritis Leukopenia Tachypnea History of gastritis Hyperlipidemia Hypertension Diabetes Dementia Discharge Disposition: Home Discharge Instruct/Medications Scheduled Acetaminophen (Tylenol 8 Hour Arthritis), 650 MG PO TID Alendronate Sodium (Alendronate Sodium), 1 TAB PO QWEEKLY, (Reported) Amlodipine Besylate (Norvasc Tablet), 1 TAB PO DAILY, (Reported) Amlodipine Besylate (Amlodipine Besylate), 1 TAB PO DAILY, (Reported) Atorvastatin Calcium (Lipitor), 1 TAB PO QPM, (Reported) Ciclopirox (Ciclopirox Nail Lacquer), 1 APPLIC TOP BID, (Reported) Docusate Sodium (Colace), 1 CAP PO BID Empagliflozin (Jardiance), 10 MG PO DAILY, (Reported) Fluoxetine HCl (Pmdd) (Fluoxetine HCl), 10 MG PO DAILY, (Reported) Levothyroxine Sodium (Levothyroxine Sodium), 88 MCG PO QAM, (Reported) Memantine Hydrochloride (Memantine HCl), 10 MG PO BID, (Reported) Metformin Hydrochloride (Metformin Hcl), 1 TAB PO BID, (Reported) Methylprednisolone (Medrol Dosepak), 4 MG PO UD Metronidazole (Flagyl), 1 TAB PO TID Pantoprazole Sodium Sesquihydr (Protonix), 40 MG PO DAILY, (Reported) Polyethylene Glycol 3350 (Miralax), 17 GM PO DAILY Zolpidem Tartrate (Zolpidem Tartrate), 1 TAB PO QPM, (Reported) Scheduled PRN Acetaminophen (Acetaminophen Er), 650 MG PO TIDPRN PRN Miscellaneous Medications Divalproex Sodium (Divalproex Sodium), 500 MG PO, (Reported) Donepezil Hydrochloride (Donepezil Hcl), 10 MG PO, (Reported) Discharge Statement: "Patient was advised to return to the ER or call 911 if any headaches, dizziness, shortness of breath, chest pain, abdominal pain, bleeding, fevers, or worsening of medical condition. Patient was counseled about treatment plan, medications, possible side effects, patientverbalized understanding. All questions were answered to the best of my ability. This discharge took greater then 30 minutes in planning, reviewing documentation, counseling the patient, and discussing with other team members." ASSESSMENT ASSESSMENT Assessment Date of Service: Apr 28, 2025 Billing Provider: SAMM CASTILLO MD Common Visit Codes: [id number] DISCH DAY >30min SAMM CASTILLO MD Apr 28, 2025 10:29
--- NOTE | 2025-04-28 12:36 | DVHPN2 ---
Subjective Patient has improvement of her symptoms, tolerating diet, BM this morning Reviewed: H&P Changes from previous H/P or p: No Changes General: Per HPI Cardiovascular: No Chest Pain, No Palpitations, No Orthopnea, No Paroxysmal Noc. Dyspnea, No Edema, No Lt Headedness, No Other Respiratory: No Cough, No Dry, No Shortness of breath, No SOB with excertion, No Wheezing, No Hemoptysis, No Pleuritic Pain, No Sputum, No Other Gastrointestinal: Nausea; No Vomiting; Abdominal Pain; No Diarrhea; C onstipation; No Melena, No Hematochezia, No Other Objective Vitals Vital Signs Date Time Temp Pulse Resp B/P (MAP) Pulse Ox O2 Delivery O2 Flow Rate FiO2 04/28/25 10:00 98.0 76 18 147/59 (88) 90 98.0 04/28/25 08:00 Room Air* 0 21 Intake/Output Intake and Output 04/28/25 07:00 Intake Total 1470 ml Output Total 450 ml Balance 1020 ml Intake Oral 1220 ml IV Total 250 ml Output Urine Total 450 ml # Voids 2 # Bowel Movements 1 General Appearance: Alert, Oriented X3, Cooperative, No acute distress, mild distress, moderate distress, severe distress, Other Lungs: Clear to auscultation, Normal air movement, Other Cardiovascular: Regular rate, Normal S1, Normal S2, No murmurs, Gallops, Rubs, Other Abdomen: Normal bowel sounds, Soft, No tenderness, No hepatospenomegaly, No masses, Other Medications Current Medications Medications Dose Ordered Sig/Myles Route Start Time Stop Time Status Last Admin Dose Admin Ondansetron HCl 4 mg Q4HP PRN IV 04/26/25 17:45 Enoxaparin Sodium 30 mg DAILY SC 04/27/25 10:00 04/28/25 10:04 30 MG Acetaminophen 650 mg Q6HP PRN PO 04/26/25 17:45 04/27/25 22:24 650 MG Morphine Sulfate 2 mg Q4HPRN PRN IV 04/26/25 17:45 Ceftriaxone Sodium 50 ml @ 100 mls/hr DAILY@09 IV 04/26/25 17:45 04/28/25 09:57 100 MLS/HR Metronidazole 100 ml @ 100 mls/hr Q8HR IV 04/26/25 22:00 04/28/25 06:51 100 MLS/HR Pantoprazole Sodium 40 mg BID IV 04/27/25 10:00 04/28/25 09:57 40 MG Amlodipine Besylate 5 mg DAILY PO 04/27/25 10:00 04/28/25 09:58 5 MG Levothyroxine Sodium 88 mcg QAM PO 04/27/25 07:00 04/28/25 06:31 88 MCG Zolpidem Tartrate 5 mg HS PO 04/26/25 22:00 04/27/25 22:23 5 MG Atorvastatin Calcium 10 mg HS PO 04/26/25 22:00 04/27/25 22:23 10 MG Fluoxetine HCl 10 mg DAILY PO 04/27/25 10:00 04/28/25 09:57 10 MG Memantine 10 mg BID PO 04/26/25 22:00 04/28/25 09:58 10 MG Acetaminophen/ Hydrocodone Bitart 1 tab Q4HP PRN PO 04/26/25 20:30 04/27/25 12:47 1 TAB Laboratory Results Laboratory Tests 04/27/25 05:31 04/27/25 13:04 Urinalysis Test 04/26/25 05:30 Urine Color Light-yellow (Yellow) Urine Clarity Clear (Clear) Urine pH 6.5 (5.0-9.0) Urine Specific [place] 1.009 (1.001-1.035) Urine Protein Negative (Negative) Urine Ketones Negative (Negative) Urine Blood Negative /uL (Negative) Urine Nitrite Negative (Negative) Urine Bilirubin Negative (Negative) Urine Urobilinogen Normal mg/dL (Negative) Urine Leukocyte Esterase Negative /uL (Negative) Urine RBC 1 /hpf (0 - 4) Urine Microscopic WBC 1 /HPF (0-5) Urine Squamous Epithelial Cells None seen /hpf (<5) Urine Bacteria None seen /hpf (None Seen) Urine Glucose Normal mg/dL (Normal) Assessment/Plan Assessment/Plan Abdominal pain improving Constipation improving Generalized weakness Plan Discussed with Dr. Ling Patient recommended to be discharged with antibiotics Continue steroids Review EGD reports and pathology reports Outpatient GI follow-up in 2-4 weeks Plan discussed with: Patient Date of Service: Apr 28, 2025 Billing Provider: GERTRUDE HARMON Common Visit Codes: [id number] INP/OBS CARE(MOD) GERTRUDE HARMON Apr 28, 2025 12:36
[2025-04-28 13:00] VITALS: BP 149/63; PULSE 53; RESP 18; TEMP 98.1; O2SAT 97
[2025-04-28] MEDS ORDERED: SENN1TAB85 PO (14:18)
[2025-04-28] MEDS ORDERED: AUG875T PO (14:18)
[2025-04-28] MEDS ORDERED: PRED20TA2 PO (14:18)
[2025-04-28] MEDS ORDERED: LACT10SO3 PO (14:18)
== END 2025-04-28 16:15 | disposition home or self-care (01) | DRG 872 ==
LOC: ER 10:31 → OVERFLOW 17:39 → CENTRAL 23:52 → TELE-CENTR 04-27 20:43
PROVIDERS: ADMIT Student in an Organized Health Care Education/Training Program; ATTEND Student in an Organized Health Care Education/Training Program
DX: A41.9 Sepsis, unspecified organism (principal); A09 Infectious gastroenteritis and colitis, unspecified; K56.7 Ileus, unspecified; E11.9 Type 2 diabetes mellitus without complications; F03.90 Unspecified dementia, unspecified severity, without behavioral disturbance, psychotic disturbance, mood disturbance, and anxiety; D72.819 Decreased white blood cell count, unspecified; E78.00 Pure hypercholesterolemia, unspecified; I11.0 Hypertensive heart disease with heart failure; I50.9 Heart failure, unspecified; E87.5 Hyperkalemia; F41.9 Anxiety disorder, unspecified; F32.A Depression, unspecified; Z79.84 Long term (current) use of oral hypoglycemic drugs; Z79.899 Other long term (current) drug therapy; Z86.0100 Personal history of colon polyps, unspecified
CPT/HCPCS: 36415; 74176; 80048; 80053; 81001; 84132; 85025; 85652; 86141; 94640; 96374; 96375; G0378; J1885; J2470; J3490